=== PATIENT | male | born 1960 | race Caucasian/White ===

== ENCOUNTER → 2019-01-30 | Outpatient (CLI) | payer MEDICARE ==
[2019-01-30 15:25] LABS: Blood Urea Nitrogen 9 mg/dL (9-20)
--- NOTE | 2019-01-31 18:41 | CT ---
EXAMINATION TYPE: CT chest w con DATE OF EXAM: 01/30/2019 COMPARISON: 05/03/2013 HISTORY: 58-year-old male with COPD, weight loss TECHNIQUE: Contiguous axial scanning of the chest after the administration of 100 mL of Isovue 300. Coronal/sagittal reconstructions performed. CT DLP: 296mGycm. Automatic exposure control utilized for a dose reduction. FINDINGS: Heart normal size without pericardial effusion. Coronary vessel calcifications are present. Aorta normal caliber with conventional arch vessel branching anatomy and mild atherosclerotic calcifi cations. No thoracic lymphadenopathy. Stable calcified granuloma inferior lingula. Some minimal strandy, adherent mucus or debris along the proximal left mainstem bronchus. No consolid ation or pleural effusion. Mild biapical pleural-parenchymal scarring. Mild emphysematous change. Visualized upper abdomen shows subcentimeter hypodensity in the mid liver, smaller from 2012, probabl y a benign cyst. Otherwise, no gross abnormality. Bones: No osseous destructive process. IMPRESSION: CAD. COPD with mild emphysema. Small amount of adherent mucous/debris along the proximal left mainste m bronchus. No acute pulmonary process.
== END | disposition home or self-care (01) ==
LOC: RADCTMAIN 14:51
PROVIDERS: ATTEND Family Medicine
DX: J43.9 Emphysema, unspecified (principal); I25.10 Atherosclerotic heart disease of native coronary artery without angina pectoris
CPT/HCPCS: 82565; 84520; 71260; 36415; Q9967

== ENCOUNTER → 2020-05-29 | Outpatient (CLI) | payer MEDICARE ==
[~2020-05-29] MED LIST: REGADENOSON 0.4 MG/5 ML SYRINGE IV ONE
--- NOTE | 2020-05-29 13:32 | NM ---
EXAMINATION TYPE: NM stress lexiscan cardiolite DATE OF EXAM: 05/29/2020 COMPARISON: NONE HISTORY: Abnormal EKG. TECHNIQUE: After the intravenous administration of 9.4 mCi Tc 99m Sestamibi - Cardiolite resting SPE CT images acquired 45 minutes post injection. The patient received 0.4mg Lexiscan, 24.8 mCi Tc 99m Sestamibi - Stress images obtained [address] injection FINDINGS: Review of stress and rest SPECT images demonstrates fixed defect involving the apex of the myocardium small area of stress-induced reversibility not excluded.. Gated analysis shows normal wall motion w ith an estimated left ventricular ejection fraction of 47 %. Report called to referring clinician. IMPRESSION: 1. Fixed defect involving the apex myocardium. Cannot exclude a small area of stress-induced reversib le ischemia involving the myocardial apex. 2. Ejection fraction is only 47%.
--- NOTE | 2020-05-29 14:08 | EST ---
EXERCISE STRESS DATE OF SERVICE: May 29, 2020 AGE: 59 SEX: M HT: 68" WT: 120 lbs PROTOCOL: Lexiscan Cardiolite STAGE: DURATION OF EXERCISE: HEART RATE REST: 71 BLOOD PRESSURE REST: 121/68 MAXIMUM HEART RATE ACHIEVED: 94 MAXIMUM BLOOD PRESSURE: 121/68 85% MPHR: 138 100% MPHR: 162 METS: INDICATIONS: Chest pain. STRESS DATA: Heart rate 71, pressure is 121/68 mmHg. 0.4 mg of Lexiscan given over 15 seconds per protocol. Max heart rate was 94 beats per minute. Maximum pressure was 121/68 mmHg. Clinically the patient did not have any symptoms and the EKG did not show any significant ST or T-wave abnormalities concerning for ischemia. CONCLUSION: 1. Nondiagnostic electrocardiogram stress testing in response to Lexiscan. 2. Please follow up on the Cardiolite portion on separate report from Radiology Department. MMODL / IJN: [id number] /
== END | disposition home or self-care (01) ==
LOC: RADNMMAIN 09:00
PROVIDERS: ATTEND Family Medicine
DX: R94.31 Abnormal electrocardiogram [ECG] [EKG] (principal)
CPT/HCPCS: 93017; 78452; A9500; J2785

== ENCOUNTER 2022-01-05 06:27 | Day surgery (SDC) | payer MEDICARE ==
[2021-12-31 09:12] VITALS: BMI 18.2
[~2022-01-05 06:27] MED LIST changes: +ALPRAZolam 0.25 MG TAB PO PRN; +ASPIRIN 325 MG TAB PO PRN; +HEPARIN SODIUM,PORCINE 10,000 UNIT in SODIUM CHLORIDE 0.9% 1,000 ML IRRIGATION PRN; +HEPARIN SODIUM,PORCINE 2,500 UNIT in SODIUM CHLORIDE 0.9% 250 ML IRRIGATION PRN; -REGADENOSON 0.4 MG/5 ML SYRINGE IV ONE; +SODIUM CHLORIDE 0.9% 1,000 ML in EMPTY BAG 1 BAG IV ONE; +ZOLPIDEM 5 MG TAB PO PRN
[2022-01-05 06:53] LABS: Glucose,Whole Blood 92 mg/dL (75-99)
[2022-01-05 07:00] LABS: Basophils % (A) 0 %; Eosinophils # (A) 0.3 k/uL (0-0.7); Eosinophils % (A) 3 %; HCT 44.4 % (39.0-53.0); HGB 14.8 gm/dL (13.0-17.5); Lymphocytes # (A) 3.8 k/uL (1.0-4.8); Lymphocytes % (A) 34 %; MCHC 33.3 g/dL (31.0-37.0); MCV 96.1 fL (80.0-100.0); Mean Platelet Volume 7.9; Monocytes # (A) 0.7 k/uL (0-1.0); Monocytes % (A) 7 %; Neutrophils % (A) 54 %; Platelet Count 261 k/uL (150-450); RBC 4.62 m/uL (4.30-5.90); RDW 13.3 % (11.5-15.5); WBC 11.2 k/uL (3.8-10.6)
[2022-01-05 07:12] LABS: African American GFR (CKD) >90 (>60 ml/min/1.73 sqM); Anion Gap 7 mmol/L; Blood Urea Nitrogen 13 mg/dL (9-20); Calcium 9.4 mg/dL (8.4-10.2); Carbon Dioxide 27 mmol/L (22-30); Chloride 106 mmol/L (98-107); Glucose 92 mg/dL (74-99); Non-African American GFR(CKD) >90 (>60 ml/min/1.73 sqM); Potassium 3.7 mmol/L (3.5-5.1); Sodium 140 mmol/L (137-145)
[2022-01-05] MEDS ORDERED: VERAPAMIL 2.5 MG/ML 2 ML AMP ONE (07:21)
[2022-01-05] MEDS ORDERED: HEPARIN SODIUM 1,000 UN/ML (10ML VL) ONE (08:10)
[2022-01-05] MEDS ORDERED: fentaNYL (PF) 50 MCG/ML 2 ML AMP ONE (08:10)
[2022-01-05] MEDS: MIDAZOLAM 2 MG/2 ML VIAL IV ONE ×4 (08:32→09:49)
[2022-01-05] MEDS ORDERED: LIDOCAINE 1% INJ 10MG/ML (20 ML MDV) SQ ONE (08:35)
[2022-01-05] MEDS: HEPARIN SODIUM 1,000 UN/ML (10ML VL) IV ONE ×3 (08:58→11:08)
[2022-01-05] MEDS ORDERED: IOPAMIDOL-370 125ML BTL INJ ONE (09:31)
[2022-01-05] MEDS ORDERED: IOPAMIDOL-250 100ML BTL INTRAARTER ONE (09:34)
[2022-01-05] MEDS ORDERED: niCARdipine 25 MG/10 ML VIAL ONE (10:31)
[2022-01-05] MEDS ORDERED: TICAGRELOR 90 MG TAB ONE (11:00)
[2022-01-05] MEDS ORDERED: TICAGRELOR 90 MG TAB PO ONE (11:04)
[2022-01-05] MEDS ORDERED: IOPAMIDOL-370 100ML BTL INJ ONE (11:05)
[2022-01-05] MEDS ORDERED: ALPRAZolam 0.5 MG TAB PO PRN (11:17)
[2022-01-05] MEDS ORDERED: NALOXONE 0.4 MG/ML 1 ML VIAL IVP PRN (11:18)
[2022-01-05] MEDS ORDERED: SODIUM CHLORIDE 0.9% 1,000 ML in EMPTY BAG 1 BAG IV SCH (11:30)
--- NOTE | 2022-01-05 11:31 | P.PCN ---
Date of Procedure: 01/05/22 Operative Findings: CARDIAC CATHETERIZATION AND PERCUTANEOUS CORONARY INTERVENTION PERFORMING PHYSICIAN: Adolfo Chavez MD, [facility] PROCEDURE PERFORMED: 1. Selective right and left coronary angiogram 2. Left heart catheterization 3. Successful stenting of left anterior descending artery using 2.0 x 30 Rashi LEONA and 3.0 x 23 as well as 3.5 x 12 mm Xience LEONA which with an excellent angiographic results 4. Intravascular ultrasound of the left anterior descending artery 5. Fractional flow reserve of the right coronary artery INDICATION: This is a 61-year-old gentleman with diabetes and smoking and hypertension and dyslipidemia was experiencing symptoms of chest discomfort with exertion as well as shortness of breath with exertion. He was evaluated about a year ago where he underwent myocardial perfusion imaging stress test and that revealed an anterior ischemia and to heart catheterization was advised but he was not followed since then. He did not come to the office. He was sent again for further evaluation where the symptoms has progressed. In the light of that a heart catheterization was advised COMPLICATION: None APPROACH: Right common femoral artery LEVEL OF SEDATION: Moderate with the sedation time off 153 minutes PROCEDURE DESCRIPTION: After obtaining an informed consent the patient was brought to the cardiac senior label specialist. The right common femoral artery was cannulated using micropuncture technique, the micropuncture wire passed easily then I placed a 6-Gabonese sheath of the right common femoral artery. Selective right and left coronary angiogram performed with JR4 and JL 4 catheters. I did left heart catheterization using the JR4 catheter which across aortic valve then I did pulled back across the valve. After that I did intervene on the LAD SELECTIVE CORONARY ANGIOGRAM: The right coronary artery: Is a large caliber vessel and a dominant vessel and calcified vessel. The proximal RCA has eccentric lesion appears to be in the range of 60%. FFR was performed and came in to be nonischemic and 0.82. The mid and distal RCA appears to have mild disease only. Left main: Is a large caliber vessel. Bifurcates into LCx and LAD The left circumflex: Is a medium caliber vessel. It has mild disease in the proximal portion by the bifurcation of OM which appeared to be a small caliber vessel was mild disease only. The left anterior descending artery: Is a large caliber vessel. Its calcified vessel. The proximal LAD has mild disease only. Gives rises into a large diagonal branch which has intermediate lesion in the proximal portion. The proximal to mid LAD after that is subtotally occluded by the bifurcation of the second diagonal branch and the septal both greater. The CLOTHES MARKER extend into the mid to distal portion. HEMODYNAMICS: The LVEDP was 12 mmHg without significant gradient across aortic valve PCI OF THE LAD: Anticoagulation was initiated and continued using heparin with continuous ACT monitoring. I did engage the LAD using an EBU guiding catheter. I did wire the LAD using a whisper wire with adjunctive use of micro-catheter. Attempting advancing the microcatheter over the wire the distal LAD was unsuccessful. Attempting balloon angioplasty of the LAD was done using 1 mm balloon and 1.5 mm balloon without any success. The procedure was extremely long and complex and without any success in advancing the 1 mm a 1.5 mm balloon even I tried using a vivek wire. At that point I decided to do atherectomy of the LAD. I did advance the microcatheter as long as I can distally then I pulled the whisper wire and I placed the atherectomy wire. Atherectomy of the LAD was performed using 4 runs on low speed and using the orbital atherectomy device from [employer]. After that balloon angioplasty was performed using 2 mm balloon. Subsequently I deployed in the mid to distal LAD 2.0 x 30 mm and in the mid LAD 3.0 x 33 mm and in the proximal to mid 3.5 x 12 mm stents. By the end I did intravascular ultrasound which showed that the stents appeared to be well deployed and well opposed and rounded. The procedure was completed without any complication CONCLUSION: #1 chest discomfort with exertion with abnormal myocardial perfusion imaging stress test showing an anterior ischemia #2 chronic total occlusion of the LAD in the midportion on long segment. I did successful stenting of the LAD as described above #3 intermediate lesion involving the proximal RCA. FFR was performed and came in to be an 0.8 to POSTPROCEDURE MANAGEMENT: #1 dual antiplatelet therapy #2 aggressive cholesterol control #3 follow-up with the patient
--- NOTE | 2022-01-05 11:34 | P.PCN ---
Date of Procedure: 01/05/22 Operative Findings: AN ABDOMINAL AORTOGRAM AND BILATERAL LOWER EXTREMITIES RUNOFF PERFORMING PHYSICIAN: Adolfo Chavez MD PROCEDURE PERFORMED: 1. An abdominal aortogram 2. Bilateral lower extremities runoff INDICATION: Right lower extremities intermittent claudication in the 61-year-old gentleman with a smoking and diabetes. On examination he has no pedal pulse on the right side normal popliteal pulse but good femoral pulse. COMPLICATION: None LEVEL OF SEDATION: Moderate was sedation length of 12 minutes APPROACH: Right common femoral artery PROCEDURE DESCRIPTION: After obtaining informed consent and explaining the procedure benefits, risks, and complications, the patient was brought to the cardiac slab inspector. The right groin was prepped and draped in sterile fashion. The right common femoral artery was cannulated using micropuncture technique, under ultrasound guidance. A micropuncture wire was advanced, and the micropuncture sheath was advanced over the wire, then the micropuncture sheath was exchanged over an 0.35 wire i nto a 5-Romanian sheath dilator assembly then the wire and dilator were removed and sheath was flushed. We did an abdominal aortogram and bilateral lower extremities runoff using 5- Romanian pigtail catheter using a power injection. The catheter was initially placed at the level of the renal arteries, and it was pulled into above the bifurcation of the aorta into right and left common iliac arteries. The procedure was completed and there was no complications. SELECTIVE PERIPHERAL ANGIOGRAM: The abdominal aorta: Is angiographically normal. Its calcified. The common iliac arteries: Both appear to be calcified was mild disease only. The external iliac arteries: Appears to be calcified was mild disease only. The internal iliac arteries: Both are patent The common femoral arteries: Appeared to be angiographically normal. Superficial femoral arteries: The right SFA is occluded distally. The left SFA appears to have mild disease only Popliteal arteries: Both appear to have mild disease only Below the knees: 3 vessels run off below the knee bilaterally CONCLUSION: Occluded right SFA POSTPROCEDURE MANAGEMENT: BOTTOM MAN of the right SFA
--- NOTE | 2022-01-05 11:41 | IR ---
Fluoroscopy HISTORY: Pain 50.8 minutes fluoroscopy time supplied to the referring clinician. 1019 intraoperative C-arm images document the procedure. See dictated report from cardiology.
[2022-01-05] MEDS ORDERED: SODIUM CHLORIDE 0.9% 1,000 ML IV ONE (12:45)
[2022-01-05 13:49] LABS: Glucose,Whole Blood 96 mg/dL (75-99)
[2022-01-05 17:58] LABS: Glucose,Whole Blood 259 mg/dL (75-99)
[2022-01-05 20:32] LABS: Glucose,Whole Blood 261 mg/dL (75-99)
[2022-01-05] MEDS ORDERED: ATORVASTATIN 80 MG TAB PO SCH (21:00)
[2022-01-05] MEDS: GABAPENTIN 100 MG CAP PO SCH (21:21)
[2022-01-05] MEDS: TICAGRELOR 90 MG TAB PO SCH (21:22)
[2022-01-05 22:18] LABS: Glucose,Whole Blood 293 mg/dL (75-99)
[2022-01-05] MEDS: INSULIN ASPART (NovoLOG) 100 UNIT/ML VIAL SQ SCH (22:57)
[2022-01-06 07:48] LABS: Glucose,Whole Blood 206 mg/dL (75-99)
[2022-01-06] MEDS: GABAPENTIN 100 MG CAP PO SCH (08:16)
[2022-01-06] MEDS: TICAGRELOR 90 MG TAB PO SCH (08:16)
[2022-01-06] MEDS: INSULIN ASPART (NovoLOG) 100 UNIT/ML VIAL SQ SCH (08:17)
[2022-01-06 08:40] VITALS: BP 103/63; PULSE 96; RESP 18; TEMP 98.2
[2022-01-06] MEDS ORDERED: MULTIVITAMINS, THERA 1 EACH TAB PO SCH (09:00)
[2022-01-06] MEDS ORDERED: INSULIN DETEMIR (LEVEMIR) 100 UNIT/ML SYR SQ SCH (09:00)
[2022-01-06] MEDS ORDERED: ASPIRIN 81 MG PO SCH (09:00)
[2022-01-06] MEDS ORDERED: atenoloL 25 MG TAB PO SCH (09:00)
--- NOTE | 2022-01-06 10:14 | P.DS ---
Providers Attending physician: Adolfo Chavez Consults: 01/05/22 11:34 Consult Physician Routine Consulting Provider: Servando Whalen Reason/Comments: DM medical tx Do you want consulting provider notified?: Yes Primary care physician: Servando [facility] Course: The patient is a pleasant 61-year-old gentleman who underwent yesterday heart catheterization and that revealed occluded LAD. He underwent successful stenting of the LAD with a good angiographic results and without any complication. He was seen this morning. The right groin is soft and nontender and without any bruises. He is hemodynamically stable. He is asymptomatic. He is going to be discharged on dual antiplatelet therapy along with high intensity statin and anti-ischemic medication and I'll follow-up with the patient next week in the office Plan - Discharge Summary Discharge Rx Participant: No New Discharge Prescriptions: New Atorvastatin [Lipitor] 80 mg PO HS #80 tab Ticagrelor [Brilinta] 90 mg PO BID #180 tab Metoprolol Succinate (ER) [Toprol Xl] 25 mg PO DAILY #90 tab Continue Multivitamin [Men's Multi-Vitamin] 1 tab PO DAILY ALPRAZolam [Xanax] 0.5 mg PO DAILY PRN PRN Reason: Anxiety Insulin Degludec [Tresiba Flextouch U-100 Pen] 20 units SQ QAM Aspirin [Adult Low Dose Aspirin EC] 81 mg PO DAILY Insulin Aspart (Niacinamide) [Fiasp 100 Unit/ml Flextouch Pen] 0 units SQ AC- TID PRN PRN Reason: Blood Sugar - High Gabapentin [Neurontin] 100 mg PO BID Discontinued atenoloL [Tenormin] 25 mg PO DAILY Discharge Medication List Multivitamin [Men's Multi-Vitamin] 1 tab PO DAILY 05/08/15 [History] ALPRAZolam [Xanax] 0.5 mg PO DAILY PRN 12/31/21 [History] Aspirin [Adult Low Dose Aspirin EC] 81 mg PO DAILY 12/31/21 [History] Gabapentin [Neurontin] 100 mg PO BID 12/31/21 [History] Insulin Aspart (Niacinamide) [Fiasp 100 Unit/ml Flextouch Pen] 0 units SQ AC-TID PRN 12/31/21 [History] Insulin Degludec [Tresiba Flextouch U-100 Pen] 20 units SQ QAM 12/31/21 [History] Atorvastatin [Lipitor] 80 mg PO HS #80 tab 01/06/22 [Rx] Metoprolol Succinate (ER) [Toprol Xl] 25 mg PO DAILY #90 tab 01/06/22 [Rx] Ticagrelor [Brilinta] 90 mg PO BID #180 tab 01/06/22 [Rx] Follow up Appointment(s)/Referral(s): Adolfo Chavez MD [STAFF PHYSICIAN] - 01/14/22 4:30 pm (APPOINTMENT MADE ON January @ 4:30PM AT THE [facility] ) Patient Instructions/Handouts: Peripheral Artery Disease (ED), Moderate Sedation (ED) Activity/Diet/Wound Care/Special Instructions: *NO LIFTING, PUSHING, OR PULLING ANYTHING OVER 5 POUNDS FOR 5 DAYS *NO DRIVING FOR 3 DAYS *YOU CAN SHOWER TOMORROW BUT DO NOT SUBMERSE YOUR PUNCTURE SITE IN WATER FOR A FEW DAYS TO PREVENT INFECTION - SO NO TUB BATHS, POOLS, HOT TUBS, DISHES....ETC *ANY SIGNS OF BLEEDING (HARDNESS, SWELLING, OR EXCESSIVE BRUISING) HOLD DIRECT PRESSURE ON YOUR PUNCTURE SITE AND COME TO THE NEAREST EMERGENCY ROOM TO GET YOUR PUNCTURE SITE LOOKED AT - DO NOT DRIVE YOURSELF! EITHER CALL EMS OR HAVE SOMEONE DRIVE YOU!
[2022-01-06] MEDS ORDERED: INSULIN ASPART (NovoLOG) 100 UNIT/ML VIAL SQ SCH (22:39)
== END 2022-01-06 11:52 | disposition home or self-care (01) ==
LOC: CATHCVL 06:27 → 6NMEDSUR 11:03 → CATHCVL 01-06 11:52
PROVIDERS: ATTEND Internal Medicine Interventional Cardiology
DX: I25.110 Atherosclerotic heart disease of native coronary artery with unstable angina pectoris (principal); I25.84 Coronary atherosclerosis due to calcified coronary lesion; I70.213 Atherosclerosis of native arteries of extremities with intermittent claudication, bilateral legs; I70.0 Atherosclerosis of aorta; E78.00 Pure hypercholesterolemia, unspecified; E11.51 Type 2 diabetes mellitus with diabetic peripheral angiopathy without gangrene; R94.39 Abnormal result of other cardiovascular function study; I10 Essential (primary) hypertension; Z20.822 Contact with and (suspected) exposure to COVID-19; E78.5 Hyperlipidemia, unspecified; F17.200 Nicotine dependence, unspecified, uncomplicated; I42.9 Cardiomyopathy, unspecified; Z79.82 Long term (current) use of aspirin; Z79.4 Long term (current) use of insulin; Z79.899 Other long term (current) drug therapy
CPT/HCPCS: 93571; 92978; 93458; 75625; 75716; 80048; 85025; 87635; C9600; C1769 ×5; C1887 ×4; C1894 ×2; C1725 ×3; C1753; C1724; C1874 ×3; J2250; J2001; J1644; Q9966; Q9967 ×2

== ENCOUNTER 2022-01-20 07:27 | Day surgery (SDC) | payer MEDICARE ==
[2022-01-19 11:58] VITALS: BMI 17.9
[~2022-01-20 07:27] MED LIST changes: -ALPRAZolam 0.25 MG TAB PO PRN; -ASPIRIN 325 MG TAB PO PRN; -HEPARIN SODIUM,PORCINE 10,000 UNIT in SODIUM CHLORIDE 0.9% 1,000 ML IRRIGATION PRN; -HEPARIN SODIUM,PORCINE 2,500 UNIT in SODIUM CHLORIDE 0.9% 250 ML IRRIGATION PRN; -ZOLPIDEM 5 MG TAB PO PRN
[2022-01-20 07:49] LABS: Glucose,Whole Blood 238 mg/dL (75-99)
[2022-01-20 07:51] VITALS: RESP 18; TEMP 98.2
[2022-01-20 07:54] LABS: Basophils # (A) 0.1 k/uL (0-0.2); Basophils % (A) 1 %; Eosinophils # (A) 0.4 k/uL (0-0.7); Eosinophils % (A) 5 %; HCT 39.8 % (39.0-53.0); HGB 13.1 gm/dL (13.0-17.5); Lymphocytes # (A) 3.3 k/uL (1.0-4.8); Lymphocytes % (A) 35 %; MCH 31.1 pg (25.0-35.0); MCHC 32.9 g/dL (31.0-37.0); MCV 94.5 fL (80.0-100.0); Monocytes # (A) 0.7 k/uL (0-1.0); Monocytes % (A) 7 %; Neutrophils # (A) 4.7 k/uL (1.3-7.7); Neutrophils % (A) 50 %; Platelet Count 276 k/uL (150-450); RBC 4.21 m/uL (4.30-5.90); RDW 12.7 % (11.5-15.5); WBC 9.4 k/uL (3.8-10.6)
[2022-01-20 08:03] LABS: African American GFR (CKD) >90 (>60 ml/min/1.73 sqM); Anion Gap 3 mmol/L; Blood Urea Nitrogen 11 mg/dL (9-20); Carbon Dioxide 27 mmol/L (22-30); Chloride 106 mmol/L (98-107); Glucose 233 mg/dL (74-99); Non-African American GFR(CKD) >90 (>60 ml/min/1.73 sqM); Sodium 136 mmol/L (137-145)
[2022-01-20 08:15] LABS: Potassium 4.7 mmol/L (3.5-5.1)
[2022-01-20] MEDS ORDERED: SODIUM CHLORIDE 0.9% 500 ML 500 ML with niCARdipine 6.25 MG, NITROGLYCERIN-D5W PMX 0.05... IV ONE ×4 (10:35)
[2022-01-20] MEDS ORDERED: LIDOCAINE 1% INJ 10MG/ML (20 ML MDV) ONE (10:53)
[2022-01-20] MEDS ORDERED: HEPARIN SODIUM 1,000 UN/ML (10ML VL) ONE (10:59)
[2022-01-20] MEDS ORDERED: HYDROmorphone 1 MG/ML 1 ML SYRINGE IVP ONE (11:05)
[2022-01-20] MEDS ORDERED: MIDAZOLAM 2 MG/2 ML VIAL IV ONE (11:05)
[2022-01-20] MEDS ORDERED: LIDOCAINE 1% INJ 10MG/ML (20 ML MDV) SQ ONE (11:11)
[2022-01-20] MEDS ORDERED: IOPAMIDOL-250 100ML BTL INTRAARTER ONE (11:51)
[2022-01-20] MEDS ORDERED: NALOXONE 0.4 MG/ML 1 ML VIAL IVP PRN (12:02)
--- NOTE | 2022-01-20 12:11 | P.PCN ---
Date of Procedure: 01/20/22 Operative Findings: PERCUTANEOUS PERIPHERAL INTERVENTION Performing physician Adolfo Chavez M.D. Procedure performed #1 atherectomy of the right SFA using the orbital atherectomy device and using 1.5 mm varun #2 intravascular ultrasound of the right SFA #3 successful balloon angioplasty of the right SFA using 5.0 x 80 mm drug-coated balloon with an excellent angiographic results #4 selective angiogram of the right SFA #5 selective angiogram of the right posterior tibial artery #6 ultrasound guided access of the right posterior tibial artery Indication This is a 69-year-old gentleman who was experiencing symptoms of intermittent claudication interfering with his daily activity where he cannot walk more than 200 feet before he stopped because of discomfort. He underwent an angiogram and that revealed occluded right SFA. For that reason he was brought today to undergo an intervention on the right SFA Approach Right posterior tibial artery Complications None Level of sedation Moderate with a sedation time of 55 minutes Procedure description After obtaining an informed consent the patient was brought to the cardiac cardiac cath technician. The right posterior tibial artery was cannulated using micro-puncture technique under ultrasound guidance, the micropuncture wire passed easily then I placed a slender 5/6-Japanese sheath in the right posterior tibial artery. The SideArm of the sheath subsequently was connected into cocktail contains heparin and verapamil and nitroglycerin. Selective angiogram of the right posterior tibial artery was performed with injection through the SideArm of the sheath. Subsequently I cross the chronic total occlusion of the right SFA using 014 wire. I did advanced an 018 catheter over the 14 wire and I did selective angiogram of the right SFA to prove that I was in the true lumen. Intravascular ultrasound was performed and revealed a diameter of about 5 mm of the right SFA. Subsequently I did atherectomy of the right SFA using the orbital atherectomy device and using 1.5 mm varun. I did that after exchange my 018 wire into the atherectomy wire. After that balloon angioplasty was performed using initially 5 mm chocolate balloon and subsequently 5 mm drug- coated balloon. The following angiogram showed excellent angiographic results and the procedure was completed without any complication Postprocedure management #1 dual antiplatelet therapy #2 aggressive cholesterol control #3 risk factors modification #4 follow-up with the patient
[2022-01-20] MEDS ORDERED: SODIUM CHLORIDE 0.9% 1,000 ML in EMPTY BAG 1 BAG IV SCH (12:15)
[2022-01-20] MEDS ORDERED: INSULIN ASPART (NovoLOG) 100 UNIT/ML VIAL SQ SCH (12:30)
--- NOTE | 2022-01-20 14:21 | IR ---
EXAMINATION TYPE: IR industrial maintenance technician femoral popliteal DATE OF EXAM: 01/20/2022 COMPARISON: NONE HISTORY: Fluoroscopy time. Fluoroscopy was provided to the referring clinician.
[2022-01-20 16:02] VITALS: BP 116/64; PULSE 76
== END 2022-01-20 16:44 | disposition home or self-care (01) ==
LOC: CATHCVL 07:27
PROVIDERS: ATTEND Internal Medicine Interventional Cardiology
DX: I70.211 Atherosclerosis of native arteries of extremities with intermittent claudication, right leg (principal); I25.82 Chronic total occlusion of coronary artery; E11.51 Type 2 diabetes mellitus with diabetic peripheral angiopathy without gangrene; I25.10 Atherosclerotic heart disease of native coronary artery without angina pectoris; I10 Essential (primary) hypertension; E78.5 Hyperlipidemia, unspecified; I42.9 Cardiomyopathy, unspecified; F17.200 Nicotine dependence, unspecified, uncomplicated; Z20.822 Contact with and (suspected) exposure to COVID-19; Z95.5 Presence of coronary angioplasty implant and graft; Z79.02 Long term (current) use of antithrombotics/antiplatelets; Z79.899 Other long term (current) drug therapy; Z79.4 Long term (current) use of insulin; Z79.82 Long term (current) use of aspirin
CPT/HCPCS: 37225; 37252; 80048; 85025; 87635; C1894 ×2; C1769 ×6; C1714; C1887; C1753; C2623; C1725; J2250; J2001; J1170; J1644 ×2; Q9966

== ENCOUNTER → 2023-09-15 | Day surgery (SDC) | payer MEDICARE ==
[~2023-09-15] MED LIST changes: +ALPRAZolam 0.25 MG TAB PO PRN; +ALPRAZolam 0.5 MG TAB PO PRN; +ASPIRIN 325 MG TAB PO STA; +ASPIRIN 81 MG PO SCH; +ATORVASTATIN 80 MG TAB PO SCH; +ATROPINE SULFATE 0.1 MG/ML 10ML SYRINGE IV PRN; +GABAPENTIN 100 MG CAP PO SCH; +IOPAMIDOL-370 100ML BTL INJ ONE; +IPRATROPIUM 0.5 MG/2.5 ML NEBU INHALATION SCH; +LIDOCAINE 2% (PF) 20 MG/ML 5 ML VIAL SQ ONE; +MAG HYDROX/AL HYDROX/SIMETH 30 ML CUP PO PRN; +METOPROLOL SUCCINATE (ER) 25 MG TAB.ER.24H PO SCH; +MULTIVITAMINS, THERA 1 EACH TAB PO SCH; +NITROGLYCERIN 1000MCG/10ML SYRINGE INTRACORON ONE; +NITROGLYCERIN SL TABS 0.4 MG TAB SUBLINGUAL PRN; +RX INFO: IV CONTRAST WAS GIVEN 1 EACH MISC MISCELLANE PRN; -SODIUM CHLORIDE 0.9% 1,000 ML in EMPTY BAG 1 BAG IV ONE; +SODIUM CHLORIDE 0.9% 1,000 ML in EMPTY BAG 1 BAG IV SCH; +SODIUM CHLORIDE 0.9% 500 ML 500 ML IV ONE; +SPIRONOLACTONE 25 MG TAB PO SCH; +SYMBICORT 160-4.5 MCG INHALER INHALATION SCH; +TICAGRELOR 90 MG TAB PO SCH; +VERAPAMIL 2.5 MG/ML 2 ML AMP ONE; +VERAPAMIL SYRINGE (5 MG/10 ML) INTRAARTER ONE; +ZOLPIDEM 5 MG TAB PO PRN
[2023-09-15 09:31] LABS: Glucose,Whole Blood 187 mg/dL (70-110)
[2023-09-15 09:49] VITALS: TEMP 97.9
[2023-09-15] MEDS: MIDAZOLAM 2 MG/2 ML VIAL IVP ONE ×2 (10:47→11:20)
--- NOTE | 2023-09-15 11:44 | P.PCN ---
Date of Procedure: 09/15/23 Operative Findings: CARDIAC CATHETERIZATION AND PERCUTANEOUS CORONARY INTERVENTION PERFORMING PHYSICIAN: Adolfo Chavez MD, [facility] PROCEDURE PERFORMED: 1. Selective right and left coronary angiogram 2. Successful stenting of the first diagonal branch using 2.75 x 18 mm Xience LEONA with an excellent angiographic results 3. Ultrasound-guided access of the right radial artery INDICATION: The patient is a 63-year-old gentleman with coronary artery disease and prior stenting of the LAD was diagnosed recently with cardiomyopathy COMPLICATION: None APPROACH: Right radial artery LEVEL OF SEDATION: Moderate with the sedation time of 30 minutes PROCEDURE DESCRIPTION: After obtaining an informed consent the patient was brought to the cardiac labor trainer. The right radial artery was cannulated using micropuncture technique under ultrasound guidance a micropuncture wire passed easily then I placed a 6-Khmer 11 cm sheath. After that I give the patient 2 mg of verapamil intra-arterial and 3000 use of heparin and intravenous. Selective right and left coronary angiogram performed using JR4 and JL 3.5 catheters. After that I did intervene on the diagonal branch of the LAD. The procedure was completed was no complication SELECTIVE CORONARY ANGIOGRAM: The right coronary artery: Large caliber vessel and a dominant vessel was mild disease only. Left main: Is angiographically normal. Bifurcates into an LCx and LAD The left circumflex: Medium caliber vessel nondominant vessel. The LCx appears to have mild disease of The left anterior descending artery: Large caliber vessel. The LAD is a stented in the proximal and midportion and the stent appeared to be patent. The LAD gives rises into a large diagonal branch which is as large as the LAD was a critical lesion in the midportion PCI OF THE diet: Anticoagulation was initiated using heparin with continuous ACT monitoring. Subsequently I did engage the left main using a JL 3.5 guiding catheter. I did wire the diagonal using a whisper wire and a run-through wire because the diagonal was extremely tortuous and I did not have good backup support from the guide. After that I did balloon angioplasty using 2.5 mm balloon before I deployed 2.75 x 18 mm stent where the stent was positioned under fluoroscopy guidance and deployed under 12 joni and postdilated using 3 mm noncompliant balloon. Final angiogram showed good angiographic results and the procedure was completed was no CONCLUSION: Patent stent in the left anterior descending artery Critical disease involving a large first diagonal branch. I did perform successful stenting of the diagonal POSTPROCEDURE MANAGEMENT: 1. Dual antiplatelet therapy using aspirin and Brilinta for at least 6 month 2. Aggressive cholesterol control 3. Follow-up with the patient
[2023-09-15 16:12] VITALS: BP 138/85; PULSE 91; RESP 16
== END ==
LOC: CATHCVL 08:56
PROVIDERS: ATTEND Internal Medicine Interventional Cardiology
DX: I73.9 Peripheral vascular disease, unspecified (principal); I25.10 Atherosclerotic heart disease of native coronary artery without angina pectoris; I10 Essential (primary) hypertension; E78.5 Hyperlipidemia, unspecified; E11.9 Type 2 diabetes mellitus without complications; F17.210 Nicotine dependence, cigarettes, uncomplicated; Z79.82 Long term (current) use of aspirin; Z79.899 Other long term (current) drug therapy
CPT/HCPCS: 93458; 76937; C9600; C1769 ×3; C1887 ×2; C1894; C1725 ×2; C1874; J2250; J1644; Q9967; J2001; J2305

== ENCOUNTER 2023-12-14 09:51 | Emergency (ER) | payer MEDICARE ==
[2023-12-14 10:28] VITALS: TEMP 97.4
--- NOTE | 2023-12-14 11:01 | ED ---
General Adult HPI - General Chief complaint: Fall Stated complaint: weakness Time Seen by Provider: 12/14/23 09:53 Source: patient, EMS, RN notes reviewed, old records reviewed Mode of arrival: EMS - History of Present Illness Initial comments: 63-year-old male presents status post fall with head injury. Patient states he fell last night, tripped on some tools that were in his bedroom. He fell with injury above the right eye. He states bleeding was able to be controlled at home. There was no loss conscious. Patient states he did feel somewhat unsteady prior to the fall and has not had a good appetite in the past several days. No central chest pain. No fever. No abdominal pain. - Related Data Home Medications Medication Instructions Recorded Confirmed ALPRAZolam [Xanax] 0.5 mg PO TID PRN 12/31/21 12/14/23 Aspirin [Adult Low Dose Aspirin EC] 81 mg PO DAILY 12/31/21 12/14/23 Budesonide/Formoterol Fumarate 2 puff INHALATION RT-DAILY 09/12/23 12/14/23 [Symbicort 160-4.5 Mcg Inhaler] Spironolactone 25 mg PO DAILY 09/12/23 12/14/23 Tiotropium 2.5 Mcg/Puff [Spiriva 1 puff INHALATION RT-DAILY 09/12/23 12/14/23 Respimat 2.5 Mcg] lisinopriL 2.5 mg PO DAILY 09/12/23 12/14/23 Clopidogrel [Plavix] 75 mg PO DAILY 12/14/23 12/14/23 Insulin Aspart (Niacinamide) See Protocol SQ AC-TID 12/14/23 12/14/23 [Fiasp 100 Unit/ml Vial] Insulin Degludec [Tresiba] 30 units SQ DAILY 12/14/23 12/14/23 Metoprolol Succinate [Toprol XL] 50 mg PO DAILY 12/14/23 12/14/23 Allergies Allergy/AdvReac Type Severity Reaction Status Date / Time No Known Allergies Allergy Verified 12/14/23 12:25 Review of Systems ROS Statement: Those systems with pertinent positive or pertinent negative responses have been documented in the HPI. ROS Other: All systems not noted in ROS Statement are negative. Past Medical History Past Medical History: COPD, Diabetes Mellitus, Hyperlipidemia, Hypertension, Osteoarthritis (OA), Vascular Disorder Additional Past Medical History / Comment(s): TENDONITIS RT ELBOW, "Cyst behind rt eye", right leg & foot pain- tx. " bad Teeth". PORRAS History of Any Multi-Drug Resistant Organisms: None Reported Past Surgical History: Orthopedic Surgery Additional Past Surgical History / Comment(s): testicular surgery, reconstructive surgery on left ring finger, rt shoulder rotator cuff, recent aortogram Past Anesthesia/Blood Transfusion Reactions: No Reported Reaction Past Psychological History: Anxiety Smoking Status: Former smoker - Past Family History Mother Family Medical History: Cancer General Exam General appearance: alert, in no apparent distress Head exam: Present: normocephalic. Absent: atraumatic (1 cm superficial laceration above the right eye) Eye exam: Present: normal appearance, PERRL ENT exam: Present: normal exam Neck exam: Present: normal inspection. Absent: tenderness, meningismus Respiratory exam: Present: normal lung sounds bilaterally. Absent: respiratory distress, wheezes Cardiovascular Exam: Present: regular rate, normal rhythm GI/Abdominal exam: Present: soft. Absent: distended, tenderness, guarding Rectal exam: Present: deferred Extremities exam: Present: normal inspection, normal capillary refill Neurological exam: Present: alert, oriented X3, CN II-XII intact. Absent: motor sensory deficit Psychiatric exam: Present: normal affect, normal mood Skin exam: Present: warm, dry Course Vital Signs 12/14/23 12/14/23 12/14/23 09:53 10:08 10:36 Temperature 97.4 F L Pulse Rate 81 80 85 Respiratory 16 16 16 Rate Blood Pressure 131/70 145/96 O2 Sat by Pulse 100 95 100 Oximetry Medical Decision Making - Medical Decision Making Was pt. sent in by a medical professional or institution (, PA, UPSETTER, urgent care, hospital, or alf...) When possible be specific @ -No Did you speak to anyone other than the patient for history (EMS, parent, family, police, friend...)? What history was obtained from this source @ -No Did you review nursing and triage notes (agree or disagree)? Why? @ -I reviewed and agree with nursing and triage notes Were old charts reviewed (outside hosp., previous admission, EMS record, old EKG, old radiological studies, urgent care reports/EKG's, alf records)? Report findings @ -No old charts were reviewed Differential Diagnosis (chest pain, altered mental status, abdominal pain women, abdominal pain men, vaginal bleeding, weakness, fever, dyspnea, syncope, h eadache, dizziness, GI bleed, back pain, seizure, CVA, palpatations, mental health, musculoskeletal)? @ -[Differential Weakness: Hypoglycemia, shock, sepsis, hyponatremia, anemia, infection, PR, ETOH, adverse medicine reaction, overdose, stroke, this is not meant to be an all-inclusive list. EKG interpreted by me (3pts min.). @ -Sinus rhythm rate of 82, MO interval 152, QRS duration 94, QTc [address] segment elevation. X-rays interpreted by me (1pt min.). @Chest x-ray negative for acute cardiopulmonary findings CT interpreted by me (1pt min.). @CT brain negative for intracranial hemorrhage or mass effect U/S interpreted by me (1pt. min.). @ -None done What testing was considered but not performed or refused? (CT, X-rays, U/S, labs)? Why? @ -None What meds were considered but not given or refused? Why? @ -None Did you discuss the management of the patient with other professionals ( professionals i.e. , PA, UPSETTER, lab, RT, psych nurse, social work nurse, silk spotter, teacher, aoc operations intelligence officer, correctional counselor/case manager)? Give summary @ -No Was smoking cessation discussed for >3mins.? @ -No Was critical care preformed (if so, how long)? @ -No Were there social determinants of health that impacted care today? How? (Homelessness, low income, unemployed, alcoholism, drug addiction, transportation, low edu. Level, literacy, decrease access to med. care, assisted, rehab)? @ -No Was there de-escalation of care discussed even if they declined (Discuss DNR or withdrawal of care, Hospice)? DNR status @ -No What co-morbidities impacted this encounter? (DM, HTN, Smoking, COPD, CAD, Cancer, CVA, ARF, Chemo, Hep., AIDS, mental health diagnosis, sleep apnea, morbid obesity)? @ -COPD, diabetes Was patient admitted / discharged? Hospital course, mention meds given and route, prescriptions, significant lab abnormalities, going to OR and other pertinent info. @ -63-year-old male presenting with weakness, fall. Patient did have head trauma and is on Plavix. Head CT is performed which is negative for intracranial hemorrhage or mass effect. Patient endorses some lightheadedness which is likely secondary to poor oral intake. Patient given IV fluids in the emergency department. Workup reveals a mild hyponatremia 129, otherwise normal electrolytes, chest x-ray is clear. Urinalysis Undiagnosed new problem with uncertain prognosis? @ -No Drug Therapy requiring intensive monitoring for toxicity (Heparin, Nitro, Insulin, Cardizem)? @ -No Were any procedures done? @ -No Diagnosis/symptom? @ -[Weakness, concussion Acute, or Chronic, or Acute on Chronic? @ -Acute Uncomplicated (without systemic symptoms) or Complicated (systemic symptoms)? @ -Default Side effects of treatment? @ -No Exacerbation, Progression, or Severe Exacerbation? @ -No Poses a threat to life or bodily function? How? (Chest pain, USA, PR, pneumonia, PE, COPD, DKA, ARF, appy, cholecystitis, CVA, Diverticulitis, Homicidal, Suicidal, threat to staff... and all critical care pts) @ -[Low risk at this time - Lab Data Result diagrams: 12/14/23 10:13 12/14/23 10:13 Lab Results 12/14/23 12/14/23 12/14/23 Range/Units 10:13 10:13 10:13 WBC 13.2 H (3.8-10.6) k/uL RBC 4.12 L (4.30-5.90) m/uL Hgb 13.4 (13.0-17.5) gm/dL Hct 39.5 (39.0-53.0) % MCV 95.8 (80.0-100.0) fL MCH 32.6 (25.0-35.0) pg MCHC 34.1 (31.0-37.0) g/dL RDW 13.3 (11.5-15.5) % Plt Count 274 (150-450) k/uL MPV 8.5 Neutrophils % 76 % Lymphocytes % 15 % Monocytes % 5 % Eosinophils % 1 % Basophils % 1 % Neutrophils # 10.1 H (1.3-7.7) k/uL Lymphocytes # 2.0 (1.0-4.8) k/uL Monocytes # 0.7 (0-1.0) k/uL Eosinophils # 0.1 (0-0.7) k/uL Basophils # 0.1 (0-0.2) k/uL Sodium 129 L (137-145) mmol/L Potassium 4.4 (3.5-5.1) mmol/L Chloride 101 (98-107) mmol/L Carbon Dioxide 20 L (22-30) mmol/L Anion Gap 8 mmol/L BUN 48 H (9-20) mg/dL Creatinine 0.55 L (0.66-1.25) mg/dL Est GFR (CKD-EPI)AfAm >90 (>60 ml/min/1.73 sqM) Est GFR (CKD-EPI)NonAf >90 (>60 ml/min/1.73 sqM) Glucose 247 H (74-99) mg/dL Plasma Lactic Acid Dexter 0.9 (0.7-2.0) mmol/L Calcium 9.0 (8.4-10.2) mg/dL Magnesium 2.2 (1.6-2.3) mg/dL Total Bilirubin 0.6 (0.2-1.3) mg/dL AST 33 (17-59) U/L ALT 40 (4-49) U/L Alkaline Phosphatase 141 H (38-126) U/L Troponin I (0.000-0.034) ng/mL Total Protein 5.8 L (6.3-8.2) g/dL Albumin 3.3 L (3.5-5.0) g/dL 12/14/23 Range/Units 10:13 WBC (3.8-10.6) k/uL RBC (4.30-5.90) m/uL Hgb (13.0-17.5) gm/dL Hct (39.0-53.0) % MCV (80.0-100.0) fL MCH (25.0-35.0) pg MCHC (31.0-37.0) g/dL RDW (11.5-15.5) % Plt Count (150-450) k/uL MPV Neutrophils % % Lymphocytes % % Monocytes % % Eosinophils % % Basophils % % Neutrophils # (1.3-7.7) k/uL Lymphocytes # (1.0-4.8) k/uL Monocytes # (0-1.0) k/uL Eosinophils # (0-0.7) k/uL Basophils # (0-0.2) k/uL Sodium (137-145) mmol/L Potassium (3.5-5.1) mmol/L Chloride (98-107) mmol/L Carbon Dioxide (22-30) mmol/L Anion Gap mmol/L BUN (9-20) mg/dL Creatinine (0.66-1.25) mg/dL Est GFR (CKD-EPI)AfAm (>60 ml/min/1.73 sqM) Est GFR (CKD-EPI)NonAf (>60 ml/min/1.73 sqM) Glucose (74-99) mg/dL Plasma Lactic Acid Dexter (0.7-2.0) mmol/L Calcium (8.4-10.2) mg/dL Magnesium (1.6-2.3) mg/dL Total Bilirubin (0.2-1.3) mg/dL AST (17-59) U/L ALT (4-49) U/L Alkaline Phosphatase (38-126) U/L Troponin I <0.012 (0.000-0.034) ng/mL Total Protein (6.3-8.2) g/dL Albumin (3.5-5.0) g/dL Disposition Clinical Impression: Fall, Concussion Disposition: HOME SELF-CARE Condition: Fair Instructions (If sedation given, give patient instructions): Fall Prevention for Older Adults (ED), Concussion (ED) Is patient prescribed a controlled substance at d/c from ED?: No Referrals: Servando Whalen MD [Primary Care Provider] - 1-2 days Time of Disposition: 14:12
[2023-12-14 11:07] LABS: ALT 40 U/L (4-49); AST 33 U/L (17-59); African American GFR (CKD) >90 (>60 ml/min/1.73 sqM); Albumin 3.3 g/dL (3.5-5.0); Alkaline Phosphatase 141 U/L (38-126); Anion Gap 8 mmol/L; Blood Urea Nitrogen 48 mg/dL (9-20); Carbon Dioxide 20 mmol/L (22-30); Chloride 101 mmol/L (98-107); Glucose 247 mg/dL (74-99); Magnesium 2.2 mg/dL (1.6-2.3); Non-African American GFR(CKD) >90 (>60 ml/min/1.73 sqM); Potassium 4.4 mmol/L (3.5-5.1); Sodium 129 mmol/L (137-145); Total Bilirubin 0.6 mg/dL (0.2-1.3); Total Protein 5.8 g/dL (6.3-8.2)
--- NOTE | 2023-12-14 11:11 | CT ---
EXAMINATION TYPE: CT brain cspine wo con DATE OF EXAM: 12/14/2023 COMPARISON: None available. HISTORY: Fall. CT DLP: 1302 mGycm Automated exposure control for dose reduction was used. TECHNIQUE: CT scan of the head and cervical spine are performed without contrast. FINDINGS: There is no acute intracranial hemorrhage, mass effect, or midline shift identified. The ventricles and sulci are within normal limits in size. The globes are intact and the visualized sin uses are clear. Cervical spine is visualized in its entirety from C1 through upper thoracic levels and demonstrates s atisfactory alignment without evidence of acute fracture or dislocation. Prevertebral soft tissue ap pears within normal limits. The C1-C2 articulation is unremarkable. 5 mm nodule in the left upper l obe is unchanged from the prior chest CT of 11/18/2022. The lung apices otherwise appear clear. IMPRESSION: 1. There is no acute fracture or dislocation evident in the cervical spine. 2. No acute intracranial hemorrhage, mass effect, or midline shift is seen.
--- NOTE | 2023-12-14 11:12 | XR ---
EXAMINATION TYPE: XR chest 2V DATE OF EXAM: 12/14/2023 COMPARISON: 06/21/2014 HISTORY: Shortness of breath TECHNIQUE: Frontal and lateral views of the chest are obtained. FINDINGS: Scattered senescent parenchymal changes noted. Hyperinflation compatible with COPD. No evidence for infiltrate. No evidence for atelectasis. Heart size is stable. Mediastinal structures are stable and grossly unremarkable. No evidence for hilar prominence. Degenerative changes dorsal spine. IMPRESSION: 1. No evidence for acute pulmonary disease.
[2023-12-14 11:55] LABS: Basophils # (A) 0.1 k/uL (0-0.2); Basophils % (A) 1 %; Eosinophils # (A) 0.1 k/uL (0-0.7); Eosinophils % (A) 1 %; HCT 39.5 % (39.0-53.0); HGB 13.4 gm/dL (13.0-17.5); Lymphocytes % (A) 15 %; MCH 32.6 pg (25.0-35.0); MCHC 34.1 g/dL (31.0-37.0); MCV 95.8 fL (80.0-100.0); Mean Platelet Volume 8.5; Monocytes # (A) 0.7 k/uL (0-1.0); Monocytes % (A) 5 %; Neutrophils # (A) 10.1 k/uL (1.3-7.7); Neutrophils % (A) 76 %; Platelet Count 274 k/uL (150-450); RBC 4.12 m/uL (4.30-5.90); RDW 13.3 % (11.5-15.5); WBC 13.2 k/uL (3.8-10.6)
[2023-12-14 13:33] LABS: Appearance,Urine Clear (Clear); Bilirubin,Urine Negative (Negative); Blood,Urine Negative (Negative); Color,Urine Colorless; Glucose,Urine (UA) 4+ (Negative); Leukocyte Esterase,Urine Negative (Negative); Nitrite,Urine Negative (Negative); PH, Urine 5.5 (5.0-8.0); Protein,Urine Negative (Negative); Specific Gravity,Urine 1.022 (1.001-1.035); Urobilinogen,Urine <2.0 mg/dL (<2.0)
[2023-12-14 14:17] LABS: Ketones,Urine 2+ (Negative)
[2023-12-14 14:31] VITALS: RESP 18
[2023-12-14] MEDS: SODIUM CHLORIDE 0.9% 500 ML 500 ML IV ONE (14:37)
[2023-12-14 15:39] VITALS: BP 119/76; PULSE 88
== END 2023-12-14 16:00 | disposition home or self-care (01) ==
LOC: EC 09:51
DX: S06.0X0A Concussion without loss of consciousness, initial encounter (principal); I10 Essential (primary) hypertension; E11.9 Type 2 diabetes mellitus without complications; J44.9 Chronic obstructive pulmonary disease, unspecified; M19.90 Unspecified osteoarthritis, unspecified site; F41.9 Anxiety disorder, unspecified; Z79.02 Long term (current) use of antithrombotics/antiplatelets; Z79.4 Long term (current) use of insulin; Z79.51 Long term (current) use of inhaled steroids; Z79.82 Long term (current) use of aspirin; Z79.899 Other long term (current) drug therapy; Z87.891 Personal history of nicotine dependence; W01.0XXA Fall on same level from slipping, tripping and stumbling without subsequent striking against object, initial encounter
CPT/HCPCS: 36415; 70450; 71046; 72125; 80053; 81003; 83605; 83735; 84484; 85025; 93005; 96360; 99285

== ENCOUNTER 2024-01-13 22:11 | Inpatient (IN) | payer MEDICARE ==
--- NOTE | 2024-01-13 22:36 | ED ---
Nausea/Vomiting/Diarrhea HPI - General Chief complaint: Nausea/Vomiting/Diarrhea Stated complaint: Hyperglycemia, Constipation Time Seen by Provider: 01/13/24 22:14 Source: EMS Mode of arrival: EMS Limitations: no limitations - History of Present Illness Initial comments: This patient is a 63-year-old man with history of diabetes, using home insulin, who presents with complaint that he has not been feeling well going on 2 to 3 days now. He states that he has been having some intermittent nausea and vomiting. His blood sugars have been running abnormally high for him. He states that he now also is having some diffuse cramping abdominal pain and feels constipated. His last bowel movement was 3 days ago. Patient does note that he has had probably 4-6 episodes of vomiting today. He states he is not really tolerating much oral intake. He states he is starting to feel dehydrated. He did not note any preceding fevers, cough, chest pain, dyspnea. MD complaint: nausea, vomiting -: days(s) Description of Vomiting: food contents Associated Abdominal Pain: Yes (cramping) Location: diffuse Radiation: none Severity: moderate Quality: cramping Consistency: intermittent Improves with: none Worsens with: none Associated Symptoms: nausea/vomiting, other (constipation) - Related Data Home Medications Medication Instructions Recorded Confirmed ALPRAZolam [Xanax] 0.5 mg PO TID PRN 12/31/21 01/14/24 Aspirin [Adult Low Dose Aspirin EC] 81 mg PO DAILY 12/31/21 01/14/24 Spironolactone 25 mg PO DAILY 09/12/23 01/14/24 lisinopriL 2.5 mg PO DAILY 09/12/23 01/14/24 Clopidogrel [Plavix] 75 mg PO DAILY 12/14/23 01/14/24 Insulin Aspart (Niacinamide) See Protocol SQ AC-TID 12/14/23 01/14/24 [Fiasp 100 Unit/ml Vial] Metoprolol Succinate [Toprol XL] 50 mg PO DAILY 12/14/23 01/14/24 Fluticasone/Umeclidin/Vilanter 1 puff INHALATION RT-DAILY 01/14/24 01/14/24 [Trelegy Ellipta 200-62.5-25] Previous Rx's Medication Instructions Recorded Insulin Degludec [Tresiba] 20 units SQ DAILY #1 each 01/15/24 Psyllium Husk 100% [Metamucil 6 gm PO DAILY #30 packet 01/15/24 Packet] Allergies Allergy/AdvReac Type Severity Reaction Status Date / Time No Known Allergies Allergy Verified 01/14/24 11:03 Review of Systems ROS Statement: Those systems with pertinent positive or pertinent negative responses have been documented in the HPI. ROS Other: All systems not noted in ROS Statement are negative. Constitutional: Denies: fever, chills Respiratory: Denies: cough, dyspnea Cardiovascular: Denies: chest pain, palpitations, edema, syncope Gastrointestinal: Reports: abdominal pain, nausea, vomiting, constipation. Denies: diarrhea, hematemesis, melena, hematochezia Genitourinary: Denies: dysuria, hematuria, testicular pain Musculoskeletal: Denies: back pain Skin: Denies: rash Neurological: Denies: headache, weakness Past Medical History Past Medical History: COPD, Diabetes Mellitus, Hyperlipidemia, Hypertension, Osteoarthritis (OA), Vascular Disorder Additional Past Medical History / Comment(s): TENDONITIS RT ELBOW, "Cyst behind rt eye", right leg & foot pain- tx. " bad Teeth". PORRAS History of Any Multi-Drug Resistant Organisms: None Reported Past Surgical History: Orthopedic Surgery Additional Past Surgical History / Comment(s): testicular surgery, reconstructive surgery on left ring finger, rt shoulder rotator cuff, recent aortogram Past Anesthesia/Blood Transfusion Reactions: No Reported Reaction Past Psychological History: Anxiety Smoking Status: Former smoker Past Alcohol Use History: Occasional Past Drug Use History: Marijuana - Past Family History Mother Family Medical History: Cancer General Exam Limitations: no limitations General appearance: alert, in no apparent distress Head exam: Present: atraumatic, normocephalic Eye exam: Present: normal appearance. Absent: scleral icterus, conjunctival injection ENT exam: Present: mucous membranes dry Neck exam: Present: normal inspection Respiratory exam: Present: normal lung sounds bilaterally. Absent: respiratory distress, wheezes, rales, rhonchi, stridor, accessory muscle use Cardiovascular Exam: Present: normal rhythm, tachycardia, normal heart sounds. Absent: systolic murmur, diastolic murmur, rubs, gallop GI/Abdominal exam: Present: soft. Absent: distended, tenderness, guarding, rebound, rigid, mass Extremities exam: Present: normal inspection, normal capillary refill. Absent: pedal edema, calf tenderness Back exam: Present: normal inspection. Absent: CVA tenderness (R), CVA tenderness (L) Neurological exam: Present: alert Skin exam: Present: warm, dry, intact, normal color. Absent: rash Course Vital Signs 01/13/24 01/13/24 01/14/24 22:12 23:20 00:00 Temperature 97.0 F L Pulse Rate 124 H 107 H 104 H Pulse Rate [ Right Supine Pulse Oximetery ] Respiratory 18 16 Rate Blood Pressure 123/69 149/85 109/55 Blood Pressure [Right Arm Supine] O2 Sat by Pulse 100 97 100 Oximetry 01/14/24 01/14/24 01:00 04:00 Temperature 98.2 F Pulse Rate 106 H Pulse Rate [ 96 Right Supine Pulse Oximetery ] Respiratory 16 16 Rate Blood Pressure 104/63 Blood Pressure 107/61 [Right Arm Supine] O2 Sat by Pulse 99 98 Oximetry Medical Decision Making - Medical Decision Making The patient had acute abdominal series which I interpreted as negative for acute infiltrate, pneumothorax, congestive heart failure. There is no bowel obstruction or free air. Was pt. sent in by a medical professional or institution (, PA, HOTEL OR MOTEL MANAGER, urgent care, hospital, or fci...) When possible be specific @ -[No] Did you speak to anyone other than the patient for history (EMS, parent, family, police, friend...)? What history was obtained from this source @ -[No] Did you review nursing and triage notes (agree or disagree)? Why? @ -[I reviewed and agree with nursing and triage notes] Were old charts reviewed (outside hosp., previous admission, EMS record, old EKG, old radiological studies, urgent care reports/EKG's, fci records)? Report findings @ -[Yes, old charts were reviewed] Differential Diagnosis (chest pain, altered mental status, abdominal pain women, abdominal pain men, vaginal bleeding, weakness, fever, dyspnea, syncope, headache, dizziness, GI bleed, back pain, seizure, CVA, palpatations, mental health, musculoskeletal)? @ -[Differential Abdominal Pain Men: Appendicitis, cholecystitis, diverticulosis, ischemic bowel, pancreatitis, hepatitis, UTI, gastroenteritis, AAA, incarcerated hernia, bowel obstruction, constipation, inflammatory bowel, hepatitis, peptic ulcer disease, splenic infarction, perforated viscus, testicular torsion, this is not meant to be an all-inclusive list EKG interpreted by me (3pts min.). @ -[As above] X-rays interpreted by me (1pt min.). @ -[I interpreted as above CT interpreted by me (1pt min.). @ -[None done] U/S interpreted by me (1pt. min.). @ -[None done] What testing was considered but not performed or refused? (CT, X-rays, U/S, l abs)? Why? @ -[None] What meds were considered but not given or refused? Why? @ -[None] Did you discuss the management of the patient with other professionals (professionals i.e. , PA, HOTEL OR MOTEL MANAGER, lab, RT, psych nurse, social sciences research scientist, tugboat mate, teacher, security officer, outpatient case manager)? Give summary @ -[Case is discussed with the admitting physician and treatment recommendations incorporated Was smoking cessation discussed for >3mins.? @ -[No] Was critical care preformed (if so, how long)? @ -[Yes, 35 minutes Were there social determinants of health that impacted care today? How? (Homelessness, low income, unemployed, alcoholism, drug addiction, transportation, low edu. Level, literacy, decrease access to med. care, alf, rehab)? @ -[No] Was there de-escalation of care discussed even if they declined (Discuss DNR or withdrawal of care, Hospice)? DNR status @ -[No] What co-morbidities impacted this encounter? (DM, HTN, Smoking, COPD, CAD, Cancer, CVA, ARF, Chemo, Hep., AIDS, mental health diagnosis, sleep apnea, morbid obesity)? @ -[Diabetes and hypertension Was patient admitted / discharged? Hospital course, mention meds given and route, prescriptions, significant lab abnormalities, going to OR and other pertinent info. @ -[This patient is a 63-year-old man presenting to have evaluation of nausea, vomiting, and some abdominal pain. The patient is found to be in diabetic ketoacidosis. He is started on IV fluids and insulin and will be admitted for continued care. Undiagnosed new problem with uncertain prognosis? @ -[No] Drug Therapy requiring intensive monitoring for toxicity (Heparin, Nitro, Insulin, Cardizem)? @ -[Insulin Were any procedures done? @ -[No] Diagnosis/symptom? @ -[Acute diabetic ketoacidosis Acute, or Chronic, or Acute on Chronic? @ -[Acute Uncomplicated (without systemic symptoms) or Complicated (systemic symptoms)? @ -[Uncomplicated Side effects of treatment? @ -[No] Exacerbation, Progression, or Severe Exacerbation? @ -[No] Poses a threat to life or bodily function? How? (Chest pain, USA, CO, pneumonia, PE, COPD, DKA, ARF, appy, cholecystitis, CVA, Diverticulitis, Homicidal, Suicidal, threat to staff... and all critical care pts) @ -[Yes - Lab Data Result diagrams: 01/13/24 22:40 01/15/24 06:22 Lab Results 01/13/24 01/13/24 01/13/24 Range/Units 22:27 22:40 22:40 WBC 9.4 (3.8-10.6) k/uL RBC 4.21 L (4.30-5.90) m/uL Hgb 13.6 (13.0-17.5) gm/dL Hct 43.7 (39.0-53.0) % MCV 103.9 H D (80.0-100.0) fL MCH 32.4 (25.0-35.0) pg MCHC 31.2 (31.0-37.0) g/dL RDW 13.7 (11.5-15.5) % Plt Count 289 (150-450) k/uL MPV 8.4 Neutrophils % 82 % Lymphocytes % 12 % Monocytes % 4 % Eosinophils % 0 % Basophils % 1 % Neutrophils # 7.7 (1.3-7.7) k/uL Lymphocytes # 1.2 (1.0-4.8) k/uL Monocytes # 0.3 (0-1.0) k/uL Eosinophils # 0.0 (0-0.7) k/uL Basophils # 0.1 (0-0.2) k/uL Hypochromasia Slight Macrocytosis Slight Sodium 134 L (137-145) mmol/L Potassium 4.5 (3.5-5.1) mmol/L Chloride 101 (98-107) mmol/L Carbon Dioxide 5 L* (22-30) mmol/L Anion Gap 28 mmol/L BUN 21 H (9-20) mg/dL Creatinine 0.74 (0.66-1.25) mg/dL Est GFR (CKD-EPI)AfAm >90 (>60 ml/min/1.73 sqM) Est GFR (CKD-EPI)NonAf >90 (>60 ml/min/1.73 sqM) Glucose 440 H (74-99) mg/dL POC Glucose (mg/dL) 418 H (70-110) mg/dL POC Glu Felt Machine Mechanic ID Erin Ayala Calcium 9.2 (8.4-10.2) mg/dL Total Bilirubin 0.5 (0.2-1.3) mg/dL AST 50 (17-59) U/L ALT 345 H (4-49) U/L Alkaline Phosphatase 414 H (38-126) U/L Total Protein 6.1 L (6.3-8.2) g/dL Albumin 3.7 (3.5-5.0) g/dL Amylase 47 (30-110) U/L Lipase 35 (23-300) U/L Urine Color Urine Appearance (Clear) Urine pH (5.0-8.0) Ur Specific [place] (1.001-1.035) Urine Protein (Negative) Urine Glucose (UA) (Negative) Urine Ketones (Negative) Urine Blood (Negative) Urine Nitrite (Negative) Urine Bilirubin (Negative) Urine Urobilinogen (<2.0) mg/dL Ur Leukocyte Esterase (Negative) Acetone, Qual Positive (Negative) 01/14/24 01/14/24 Range/Units 00:22 00:40 WBC (3.8-10.6) k/uL RBC (4.30-5.90) m/uL Hgb (13.0-17.5) gm/dL Hct (39.0-53.0) % MCV (80.0-100.0) fL MCH (25.0-35.0) pg MCHC (31.0-37.0) g/dL RDW (11.5-15.5) % Plt Count (150-450) k/uL MPV Neutrophils % % Lymphocytes % % Monocytes % % Eosinophils % % Basophils % % Neutrophils # (1.3-7.7) k/uL Lymphocytes # (1.0-4.8) k/uL Monocytes # (0-1.0) k/uL Eosinophils # (0-0.7) k/uL Basophils # (0-0.2) k/uL Hypochromasia Macrocytosis Sodium (137-145) mmol/L Potassium (3.5-5.1) mmol/L Chloride (98-107) mmol/L Carbon Dioxide (22-30) mmol/L Anion Gap mmol/L BUN (9-20) mg/dL Creatinine (0.66-1.25) mg/dL Est GFR (CKD-EPI)AfAm (>60 ml/min/1.73 sqM) Est GFR (CKD-EPI)NonAf (>60 ml/min/1.73 sqM) Glucose (74-99) mg/dL POC Glucose (mg/dL) 215 H (70-110) mg/dL POC Glu Felt Machine Mechanic ID Ivory Urrutia Calcium (8.4-10.2) mg/dL Total Bilirubin (0.2-1.3) mg/dL AST (17-59) U/L ALT (4-49) U/L Alkaline Phosphatase (38-126) U/L Total Protein (6.3-8.2) g/dL Albumin (3.5-5.0) g/dL Amylase (30-110) U/L Lipase (23-300) U/L Urine Color Colorless Urine Appearance Clear (Clear) Urine pH 5.0 (5.0-8.0) Ur Specific [place] 1.021 (1.001-1.035) Urine Protein Negative (Negative) Urine Glucose (UA) 4+ H (Negative) Urine Ketones 4+ H (Negative) Urine Blood Negative (Negative) Urine Nitrite Negative (Negative) Urine Bilirubin Negative (Negative) Urine Urobilinogen <2.0 (<2.0) mg/dL Ur Leukocyte Esterase Negative (Negative) Acetone, Qual (Negative) Disposition Clinical Impression: Diabetic ketoacidosis, Nausea & vomiting Disposition: ADMITTED IP TO THIS HOSP Is patient prescribed a controlled substance at d/c from ED?: No
[2024-01-13 22:38] LABS: Glucose,Whole Blood 418 mg/dL (70-110)
--- NOTE | 2024-01-13 22:50 | XR ---
EXAMINATION TYPE: XR abdomen acute w cxr DATE OF EXAM: 01/13/2024 CLINICAL HISTORY: Cough with nausea and vomiting and constipation for 3 days TECHNIQUE: Single frontal view of chest is obtained. Supine and upright views of the abdomen are acq uired. COMPARISON: Prior chest x-ray with acute abdominal series May 08, 2015. FINDINGS: The lungs are grossly clear without pleural effusion or pneumothorax. Cardiac silhouette size appears stable and within normal limits. Osseous structures are intact. Some paucity of bowel gas. Gas is seen in nondistended stomach and left-sided colonic loop. Vascular calcification projects over the pelvis. No free air. Osseous structures are intact. IMPRESSION: 1. No acute cardiopulmonary process. 2. Overall nonspecific bowel gas pattern.
[2024-01-13 23:13] LABS: Basophils # (A) 0.1 k/uL (0-0.2); Basophils % (A) 1 %; Eosinophils % (A) 0 %; HCT 43.7 % (39.0-53.0); HGB 13.6 gm/dL (13.0-17.5); Hypochromasia Slight; Lymphocytes # (A) 1.2 k/uL (1.0-4.8); Lymphocytes % (A) 12 %; MCH 32.4 pg (25.0-35.0); MCHC 31.2 g/dL (31.0-37.0); Macrocytosis Slight; Mean Platelet Volume 8.4; Monocytes # (A) 0.3 k/uL (0-1.0); Monocytes % (A) 4 %; Neutrophils # (A) 7.7 k/uL (1.3-7.7); Neutrophils % (A) 82 %; Platelet Count 289 k/uL (150-450); RBC 4.21 m/uL (4.30-5.90); RDW 13.7 % (11.5-15.5); WBC 9.4 k/uL (3.8-10.6)
[2024-01-13] MEDS: METOCLOPRAMIDE 5 MG/ML 2 ML VIAL IVP STA (23:13)
[2024-01-13] MEDS: INSULIN REGULAR 100 UNIT/ML VIAL (IV) SQ STA (23:13)
[2024-01-13 23:18] LABS: ALT 345 U/L (4-49); AST 50 U/L (17-59); African American GFR (CKD) >90 (>60 ml/min/1.73 sqM); Albumin 3.7 g/dL (3.5-5.0); Alkaline Phosphatase 414 U/L (38-126); Amylase 47 U/L (30-110); Anion Gap 28 mmol/L; Blood Urea Nitrogen 21 mg/dL (9-20); Calcium 9.2 mg/dL (8.4-10.2); Chloride 101 mmol/L (98-107); Glucose 440 mg/dL (74-99); Lipase 35 U/L (23-300); Non-African American GFR(CKD) >90 (>60 ml/min/1.73 sqM); Potassium 4.5 mmol/L (3.5-5.1); Sodium 134 mmol/L (137-145); Total Bilirubin 0.5 mg/dL (0.2-1.3); Total Protein 6.1 g/dL (6.3-8.2)
[2024-01-13] MEDS: SODIUM CHLORIDE 0.9% 1,000 ML IV STA (23:20)
[2024-01-13 23:22] LABS: Carbon Dioxide 5 mmol/L (22-30)
[2024-01-13 23:23] LABS: MCV 103.9 fL (80.0-100.0)
[2024-01-14 00:23] LABS: Glucose,Whole Blood 215 mg/dL (70-110)
[2024-01-14] MEDS: INSULIN REGULAR 100 UNIT in SODIUM CHLORIDE 0.9% 100 ML IV SCH (00:33)
[2024-01-14] MEDS: SODIUM CHLORIDE 0.9% 1,000 ML IV SCH ×2 (00:42→01:39)
[2024-01-14 01:09] LABS: Appearance,Urine Clear (Clear); Bilirubin,Urine Negative (Negative); Blood,Urine Negative (Negative); Color,Urine Colorless; Glucose,Urine (UA) 4+ (Negative); Leukocyte Esterase,Urine Negative (Negative); Nitrite,Urine Negative (Negative); Protein,Urine Negative (Negative); Specific Gravity,Urine 1.021 (1.001-1.035); Urobilinogen,Urine <2.0 mg/dL (<2.0)
[2024-01-14 01:21] VITALS: RESP 16
[2024-01-14 01:38] LABS: Glucose,Whole Blood 137 mg/dL (70-110)
[2024-01-14 01:39] LABS: Ketones,Urine 4+ (Negative)
[2024-01-14 02:33] LABS: Glucose,Whole Blood 98 mg/dL (70-110)
[2024-01-14 03:20] LABS: Glucose,Whole Blood 82 mg/dL (70-110)
[2024-01-14 04:08] LABS: Glucose,Whole Blood 131 mg/dL (70-110)
[2024-01-14] MEDS ORDERED: INSULIN REGULAR BOLUS (FROM DRIP BAG) IV ONE (04:57)
[2024-01-14] MEDS ORDERED: Magnesium Replacement Protocol 1 EACH MISC MISCELLANE PRN (04:57)
[2024-01-14] MEDS ORDERED: Potassium Replacement Protocol 1 EACH MISC MISCELLANE PRN (04:57)
[2024-01-14] MEDS ORDERED: DEXTROSE 50% SYRINGE 50 ML IVP PRN ×4 (04:57→15:15)
[2024-01-14] MEDS ORDERED: SODIUM CHLORIDE 0.9% 1,000 ML IV SCH (05:00)
[2024-01-14] MEDS ORDERED: INSULIN REGULAR 100 UNIT in SODIUM CHLORIDE 0.9% 100 ML IV SCH (05:00)
[2024-01-14 06:00] LABS: Glucose,Whole Blood 71 mg/dL (70-110)
[2024-01-14 06:02] LABS: African American GFR (CKD) >90 (>60 ml/min/1.73 sqM); Anion Gap 12 mmol/L; Blood Urea Nitrogen 17 mg/dL (9-20); Carbon Dioxide 20 mmol/L (22-30); Chloride 103 mmol/L (98-107); Glucose 82 mg/dL (74-99); Non-African American GFR(CKD) >90 (>60 ml/min/1.73 sqM); Potassium 4.1 mmol/L (3.5-5.1); Sodium 135 mmol/L (137-145)
[2024-01-14 06:18] LABS: VBG PH 7.4 (7.31-7.41)
[2024-01-14 06:50] LABS: Glucose,Whole Blood 55 mg/dL (70-110)
[2024-01-14 07:11] LABS: Glucose,Whole Blood 63 mg/dL (70-110)
[2024-01-14 07:17] LABS: Glucose,Whole Blood 103 mg/dL (70-110)
[2024-01-14] MEDS: D5-0.45% NACL WITH KCL 20MEQ/L 1,000 ML IV SCH (08:00)
[2024-01-14 09:14] LABS: Glucose,Whole Blood 348 mg/dL (70-110)
[2024-01-14 10:13] LABS: Glucose,Whole Blood 384 mg/dL (70-110)
[2024-01-14 11:03] LABS: African American GFR (CKD) >90 (>60 ml/min/1.73 sqM); Anion Gap 14 mmol/L; Blood Urea Nitrogen 14 mg/dL (9-20); Carbon Dioxide 14 mmol/L (22-30); Chloride 102 mmol/L (98-107); Glucose 342 mg/dL (74-99); Non-African American GFR(CKD) >90 (>60 ml/min/1.73 sqM); Phosphorus 2.9 mg/dL (2.5-4.5); Potassium 4.1 mmol/L (3.5-5.1); Sodium 130 mmol/L (137-145)
[2024-01-14 11:07] LABS: Glucose,Whole Blood 292 mg/dL (70-110)
[2024-01-14 11:19] LABS: Glucose,Whole Blood 278 mg/dL (70-110)
[2024-01-14] MEDS ORDERED: ALPRAZolam 0.5 MG TAB PO PRN (11:33)
[2024-01-14 12:00] LABS: Glucose,Whole Blood 219 mg/dL (70-110)
[2024-01-14] MEDS: SYMBICORT 80-4.5 MCG INHALER INHALATION SCH (12:03)
[2024-01-14] MEDS: IPRATROPIUM 0.5 MG/2.5 ML NEBU INHALATION SCH (12:03)
[2024-01-14] MEDS: ASPIRIN 81 MG PO SCH (12:10)
[2024-01-14] MEDS: METOPROLOL SUCCINATE (ER) 50 MG TAB.ER.24H PO SCH (12:10)
[2024-01-14] MEDS: CLOPIDOGREL 75 MG TAB PO SCH (12:10)
[2024-01-14 12:47] VITALS: BMI 15.2
[2024-01-14 13:01] LABS: Glucose,Whole Blood 210 mg/dL (70-110)
[2024-01-14 14:08] LABS: Glucose,Whole Blood 213 mg/dL (70-110)
--- NOTE | 2024-01-14 14:40 | P.HPIM ---
History of Present Illness H&P Date: 01/14/24 Chief Complaint: Nausea vomiting Rounding for Dr. Servando Whalen. This is a pleasant 63-year-old patient follows with Dr. Servando Whalen. Chronic stable medical condition include COPD, hypertension, hyperlipidemia, osteoarthritis, anxiety. Patient has been on insulin for 10 years. Last 2 months patient is no disease at weight loss. Gets constipated. Was having a regular bowel movement prior. Now he goes every 2 to 3 days. This occasion again got constipated. Started having nausea vomiting. No fever no chills. Came to the ER. Found to be in diabetic ketoacidosis. Put on insulin drip. Did eat about 50% of his breakfast this morning, not hungry for lunch. Review of systems: GEN.: Tired weight loss decreased appetite EYES: None HEENT: None NECK: None RESPIRATORY: None CARDIOVASCULAR: None GASTROINTESTINAL: As above GENITOURINARY: None MUSCULOSKELETAL: None LYMPHATICS: None HEMATOLOGICAL: None PSYCHIATRY: None NEUROLOGICAL: None Social history: Patient is . Smoking in 2020. Smoked for 30 years. Alcohol occasionally. Does use medical marijuana. Physical examination: VITAL SIGNS: 97, 124, 18, 123/69, 100% room air upon presentation GENERAL: BMI 15.2, laying in bed tired. EYES: Pupils equal. Conjunctiva miguel a l. HEENT: External appearance of nose and ears normal, oral cavity grossly normal. NECK: JVD not raised; masses not palpable. HEART: First and second heart sounds are normal; no edema. LUNGS: Respiratory rate normal; decreased breath sounds. ABDOMEN: Soft, nontender, liver spleen not palpable, no masses palpable. PSYCH: Alert and oriented x3; mood and affect tired a l. MUSCULOSKELETAL:No Clubbing/cyanosis;muscles-grossly intact. Loss of subcutaneous fat. Loss of muscle mass. NEUROLOGICAL: Cranial nerves grossly intact; no facial asymmetry, power and sensation grossly intact. LYMPHATICS: No lymph nodes palpable in the axilla and neck INVESTIGATIONS, reviewed in the clinical context: January 13: Potassium 4.1 BUN 14 creatinine 0.49 blood glucose 342 January 12: White count 9.4 hemoglobin 13.6 platelets 289 sodium 134 potassium 4.5 bicarb 5 creatinine 0.74 blood glucose 440 UA: Glucose 4+ ketones 4+. Serum acetone positive Acute abdominal series: Unremarkable Assessment plan: -Acute diabetic ketoacidosis the patient was having nausea vomiting for 2 days. Started on IV insulin drip. Per protocol. -Severe weight loss in the course of last 2 months. With new onset of constipation. Rule out GI malignancy. CT scan chest abdomen pelvis with and without contrast. Consult general surgery. -Anxiety Xanax 0.5 p.o. 3 times daily as needed -COPD in prior smoker. Continue inhalers from home -Primary osteoarthritis Tylenol as needed -Severe protein calorie malnutrition Nutritional supplements Patient on IV heparin drip. Discussed with patient. Workup to rule out malignancy. Will also check CEA, AFP. PSA Past Medical History Past Medical History: COPD, Diabetes Mellitus, Hyperlipidemia, Hypertension, Osteoarthritis (OA), Vascular Disorder Additional Past Medical History / Comment(s): TENDONITIS RT ELBOW, "Cyst behind rt eye", right leg & foot pain- tx. " bad Teeth". PORRAS History of Any Multi-Drug Resistant Organisms: None Reported Past Surgical History: Orthopedic Surgery Additional Past Surgical History / Comment(s): testicular surgery, reconstructive surgery on left ring finger, rt shoulder rotator cuff, recent ao rtogram Past Anesthesia/Blood Transfusion Reactions: No Reported Reaction Past Psychological History: Anxiety Smoking Status: Former smoker Past Alcohol Use History: Occasional Additional Past Alcohol Use History / Comment(s): quit smoking 2020, smoked for 30 yrs Past Drug Use History: Marijuana Additional Drug Use History / Comment(s): medical- occ use, pt aware not to use 24 hrs before procedure - Past Family History Mother Family Medical History: Cancer Additional Family Medical History / Comment(s): LUNG CANCAR Medications and Allergies Home Medications Medication Instructions Recorded Confirmed Type ALPRAZolam [Xanax] 0.5 mg PO TID PRN 12/31/21 01/14/24 History Aspirin [Adult Low Dose Aspirin EC] 81 mg PO DAILY 12/31/21 01/14/24 History Spironolactone 25 mg PO DAILY 09/12/23 01/14/24 History lisinopriL 2.5 mg PO DAILY 09/12/23 01/14/24 History Clopidogrel [Plavix] 75 mg PO DAILY 12/14/23 01/14/24 History Insulin Aspart (Niacinamide) See Protocol SQ AC-TID 12/14/23 01/14/24 History [Fiasp 100 Unit/ml Vial] Insulin Degludec [Tresiba] 30 units SQ DAILY 12/14/23 01/14/24 History Metoprolol Succinate [Toprol XL] 50 mg PO DAILY 12/14/23 01/14/24 History Fluticasone/Umeclidin/Vilanter 1 puff INHALATION RT-DAILY 01/14/24 01/14/24 History [Trelegy Ellipta 200-62.5-25] Levofloxacin [Levaquin] 500 mg PO DAILY 01/14/24 01/14/24 History methylPREDNISolone Dose Pack 4 mg PO DIRECTED 01/14/24 01/14/24 History [Medrol Dose Pack] Allergies Allergy/AdvReac Type Severity Reaction Status Date / Time No Known Allergies Allergy Verified 01/14/24 11:03 Physical Exam Vitals: Vital Signs Temp Pulse Pulse Pulse Resp BP BP 01/14/24 08:45 98.7 F 61 16 112/61 01/14/24 04:12 98.2 F 96 16 107/61 01/14/24 04:00 98.2 F 96 16 107/61 01/14/24 01:00 106 H 16 104/63 01/14/24 00:00 104 H 16 109/55 01/13/24 23:20 107 H 149/85 01/13/24 22:12 97.0 F L 124 H 18 123/69 Pulse Ox 01/14/24 08:45 96 01/14/24 04:12 98 01/14/24 04:00 98 01/14/24 01:00 99 01/14/24 00:00 100 01/13/24 23:20 97 01/13/24 22:12 100 Intake and Output 01/13/24 01/14/24 01/14/24 22:59 06:59 14:59 Intake Total 7.995 251.255 Output Total 400 Balance 7.995 -148.745 Intake: Intake, IV Titration 7.995 11.255 Amount Insulin Regular 100 unit 7.995 11.255 In Sodium Chloride 0.9% 100 ml @ 0.1 UNITS/KG/HR 4.948 mls/hr IV .[id number] [facility] Rx#:[id number] Oral 240 Output: Urine 400 Other: Weight 48.988 kg 48.988 kg 45.314 kg Results CBC & Chem 7: 01/13/24 22:40 01/14/24 10:29 Labs: Abnormal Lab Results - Last 24 Hours (Table) 01/13/24 01/13/24 01/13/24 Range/Units 22:27 22:40 22:40 RBC 4.21 L (4.30-5.90) m/uL MCV 103.9 H D (80.0-100.0) fL VBG pCO2 (37-51) mmHg VBG HCO3 (24-28) mmol/L Sodium 134 L (137-145) mmol/L Carbon Dioxide 5 L* (22-30) mmol/L BUN 21 H (9-20) mg/dL Creatinine (0.66-1.25) mg/dL Glucose 440 H (74-99) mg/dL POC Glucose (mg/dL) 418 H (70-110) mg/dL ALT 345 H (4-49) U/L Alkaline Phosphatase 414 H (38-126) U/L Total Protein 6.1 L (6.3-8.2) g/dL Urine Glucose (UA) (Negative) Urine Ketones (Negative) 01/14/24 01/14/24 01/14/24 Range/Units 00:22 00:40 01:36 RBC (4.30-5.90) m/uL MCV (80.0-100.0) fL VBG pCO2 (37-51) mmHg VBG HCO3 (24-28) mmol/L Sodium (137-145) mmol/L Carbon Dioxide (22-30) mmol/L BUN (9-20) mg/dL Creatinine (0.66-1.25) mg/dL Glucose (74-99) mg/dL POC Glucose (mg/dL) 215 H 137 H (70-110) mg/dL ALT (4-49) U/L Alkaline Phosphatase (38-126) U/L Total Protein (6.3-8.2) g/dL Urine Glucose (UA) 4+ H (Negative) Urine Ketones 4+ H (Negative) 01/14/24 01/14/24 01/14/24 Range/Units 03:57 05:29 05:45 RBC (4.30-5.90) m/uL MCV (80.0-100.0) fL VBG pCO2 33 L (37-51) mmHg VBG HCO3 21 L (24-28) mmol/L Sodium 135 L (137-145) mmol/L Carbon Dioxide 20 L (22-30) mmol/L BUN (9-20) mg/dL Creatinine 0.46 L (0.66-1.25) mg/dL Glucose (74-99) mg/dL POC Glucose (mg/dL) 131 H (70-110) mg/dL ALT (4-49) U/L Alkaline Phosphatase (38-126) U/L Total Protein (6.3-8.2) g/dL Urine Glucose (UA) (Negative) Urine Ketones (Negative) 01/14/24 01/14/24 01/14/24 Range/Units 06:45 07:01 09:12 RBC (4.30-5.90) m/uL MCV (80.0-100.0) fL VBG pCO2 (37-51) mmHg VBG HCO3 (24-28) mmol/L Sodium (137-145) mmol/L Carbon Dioxide (22-30) mmol/L BUN (9-20) mg/dL Creatinine (0.66-1.25) mg/dL Glucose (74-99) mg/dL POC Glucose (mg/dL) 55 L 63 L 348 H (70-110) mg/dL ALT (4-49) U/L Alkaline Phosphatase (38-126) U/L Total Protein (6.3-8.2) g/dL Urine Glucose (UA) (Negative) Urine Ketones (Negative) 01/14/24 01/14/24 01/14/24 Range/Units 10:05 10:29 10:59 RBC (4.30-5.90) m/uL MCV (80.0-100.0) fL VBG pCO2 (37-51) mmHg VBG HCO3 (24-28) mmol/L Sodium 130 L (137-145) mmol/L Carbon Dioxide 14 L (22-30) mmol/L BUN (9-20) mg/dL Creatinine 0.49 L (0.66-1.25) mg/dL Glucose 342 H (74-99) mg/dL POC Glucose (mg/dL) 384 H 292 H (70-110) mg/dL ALT (4-49) U/L Alkaline Phosphatase (38-126) U/L Total Protein (6.3-8.2) g/dL Urine Glucose (UA) (Negative) Urine Ketones (Negative) 01/14/24 Range/Units 11:17 RBC (4.30-5.90) m/uL MCV (80.0-100.0) fL VBG pCO2 (37-51) mmHg VBG HCO3 (24-28) mmol/L Sodium (137-145) mmol/L Carbon Dioxide (22-30) mmol/L BUN (9-20) mg/dL Creatinine (0.66-1.25) mg/dL Glucose (74-99) mg/dL POC Glucose (mg/dL) 278 H (70-110) mg/dL ALT (4-49) U/L Alkaline Phosphatase (38-126) U/L Total Protein (6.3-8.2) g/dL Urine Glucose (UA) (Negative) Urine Ketones (Negative) Thrombosis Risk Factor Assmnt - Choose All That Apply Each Risk Factor Represents 2 Points: Age 61-74 years Thrombosis Risk Factor Assessment Total Risk Factor Score: 2 Thrombosis Risk Factor Assessment Level: Low Risk
[2024-01-14 14:56] LABS: African American GFR (CKD) >90 (>60 ml/min/1.73 sqM); Anion Gap 6 mmol/L; Blood Urea Nitrogen 11 mg/dL (9-20); Carbon Dioxide 19 mmol/L (22-30); Chloride 103 mmol/L (98-107); Glucose 176 mg/dL (74-99); Non-African American GFR(CKD) >90 (>60 ml/min/1.73 sqM); Phosphorus 2.2 mg/dL (2.5-4.5); Potassium 4.1 mmol/L (3.5-5.1); Sodium 128 mmol/L (137-145)
[2024-01-14 15:02] LABS: Glucose,Whole Blood 167 mg/dL (70-110)
[2024-01-14] MEDS: ENOXAPARIN 40 MG/0.4 ML SYRINGE SQ SCH (15:03)
[2024-01-14] MEDS: IOPAMIDOL CONTRAST (ORAL USE) VIAL PO PRN ×2 (15:37→16:32)
[2024-01-14] MEDS: INSULIN ASPART (NovoLOG) 100 UNIT/ML VIAL SQ SCH (16:55)
[2024-01-14 16:59] LABS: Glucose,Whole Blood 122 mg/dL (70-110)
[2024-01-14] MEDS: INSULIN NPH 100 UNIT/ML 10 ML VIAL SQ SCH (17:01)
[2024-01-14 20:31] LABS: Glucose,Whole Blood 73 mg/dL (70-110)
--- NOTE | 2024-01-14 20:34 | P.CON ---
Consult Note - . Consult date: 01/14/24 Assessment/Plan:: Patient is a 63 yo male w/ abdominal pain currently in DKA. Patient currently denies bowel movements over the last 4 days. He admits to early satiety with no associated nausea and emesis. Also admits to dysuria as well. He is aware of chronic constipation but denies signficant regimen and states it gets out of hand when his "sugars are acting up". Currently denies fevers chills, shortness of breath, or chest pain. Review of systems: GEN.: Tired weight loss decreased appetite EYES: None HEENT: None NECK: None RESPIRATORY: None CARDIOVASCULAR: None GASTROINTESTINAL: As above GENITOURINARY: None MUSCULOSKELETAL: None LYMPHATICS: None HEMATOLOGICAL: None PSYCHIATRY: None NEUROLOGICAL: None PMH: copd, diabetes, osteo PSH: Denies Social history: Patient is . Smoking in 2020. Smoked for 30 years. Alcohol occa sionally. Does use medical marijuana. Physical examination: VITAL SIGNS: 97, 124, 18, 123/69, 100% room air upon presentation GENERAL: BMI 15.2, laying in bed tired. EYES: Pupils equal. Conjunctiva miguel a l. HEENT: External appearance of nose and ears normal, oral cavity grossly normal. NECK: JVD not raised; masses not palpable. HEART: First and second heart sounds are normal; no edema. LUNGS: Respiratory rate normal; decreased breath sounds. ABDOMEN: Soft, nontender, liver spleen not palpable, no masses palpable. PSYCH: Alert and oriented x3; mood and affect tired a l. MUSCULOSKELETAL:No Clubbing/cyanosis;muscles-grossly intact. Loss of subcutaneous fat. Loss of muscle mass. NEUROLOGICAL: Cranial nerves grossly intact; no facial asymmetry, power and sensation grossly intact. LYMPHATICS: No lymph nodes palpable in the axilla and neck INVESTIGATIONS, reviewed in the clinical context: January 13: Potassium 4.1 BUN 14 creatinine 0.49 blood glucose 342 January 12: White count 9.4 hemoglobin 13.6 platelets 289 sodium 134 potassium 4.5 bicarb 5 creatinine 0.74 blood glucose 440 UA: Glucose 4+ ketones 4+. Serum acetone positive Acute abdominal series: Unremarkable ASSESSMENT: 63 yo male w/ constipation urinary retention DKA -ctap reviewed stool in rectal vault -no abdominal pain -will order senna/colace and x 1 dulcolax suppository
[2024-01-14] MEDS: DOCUSATE 100 MG CAP PO SCH (22:12)
--- NOTE | 2024-01-14 23:47 | CT ---
EXAMINATION TYPE: CT ChestAbdPelvis w con DATE OF EXAM: 01/14/2024 COMPARISON: Prior chest CT January 30, 2019 HISTORY: Low BMI, weight loss, concern for malignancy. CT DLP: 539.2 mGycm. Automated Exposure Control for Dose Reduction was Utilized. CONTRAST: CT scan of the thorax, abdomen and pelvis is performed with oral and with IV Contrast, patient inject ed with 100 ml mL of Isovue 300. FINDINGS: LUNGS: The lungs are grossly clear, there is no concerning parenchymal mass or nodule identified. No focal consolidation. There is no pleural effusion or pneumothorax seen. The tracheobronchial tree i s patent. MEDIASTINUM: There are no greater than 1 cm hilar or mediastinal lymph nodes. No cardiomegaly or pe ricardial effusion is seen. Coronary artery calcification is seen. LIVER/GB: There are 3-4 subcentimeter rounded low dense lesions throughout the liver that are too sma ll to further characterize. A vague 2.5 cm hyperdense area axial image 65 could reflect mass lesion v ersus transient hepatic attenuation difference, it was present on 2019 study suggesting it is benign. There is washout noted on delayed imaging being more hypodense relative to remainder of liver. PANCREAS: No significant abnormality is seen. SPLEEN: No significant abnormality is seen. ADRENALS: No significant abnormality is seen. KIDNEYS: Mild to moderately distended bladder. BOWEL: Oral contrast does not extend to colonic level. Patient has little internal fat making evaluat ion suboptimal. No abnormal small or large bowel dilatation is seen. Moderate rectal fecal prominence . GENITAL ORGANS: No gross abnormality seen. LYMPH NODES: No greater than 1cm abdominal or pelvic lymph nodes are appreciated. OSSEOUS STRUCTURES: Prominent Schmorl node superior L3 endplate. OTHER: Moderate diffuse subcutaneous edema blurs the fat planes in the subcutaneous fat. Moderate per ipheral plaque of the infrarenal aorta extends into branch vessels. There is significant stenosis in the right renal artery seen on coronal images 38 and 39. IMPRESSION: 1. No obvious concerning new mass or adenopathy to suggest malignancy. 2. Stable in size 2.5 cm right hepatic lobe mass, suspect FNH or hepatic adenoma. Nonemergent liver p rotocol MRI can be performed to further evaluate and characterize. 3. Overall nonobstructive bowel gas pattern. Moderate colonic fecal stasis or constipation is seen. 4. Moderate plaque of the aorta extending into branch vessels. Significant stenosis in the proximal r ight renal artery is felt present. Correlate clinically for uncontrolled hypertension.
[2024-01-15 02:53] LABS: Glucose,Whole Blood 78 mg/dL (70-110)
[2024-01-15 06:05] LABS: Glucose,Whole Blood 131 mg/dL (70-110)
[2024-01-15 06:55] LABS: African American GFR (CKD) >90 (>60 ml/min/1.73 sqM); Anion Gap 1 mmol/L; Blood Urea Nitrogen 7 mg/dL (9-20); Calcium 8.2 mg/dL (8.4-10.2); Carbon Dioxide 26 mmol/L (22-30); Chloride 101 mmol/L (98-107); Glucose 154 mg/dL (74-99); Non-African American GFR(CKD) >90 (>60 ml/min/1.73 sqM); Potassium 3.9 mmol/L (3.5-5.1); Sodium 128 mmol/L (137-145)
[2024-01-15] MEDS: INSULIN DETEMIR (LEVEMIR) 100 UNIT/ML SYR SQ SCH (07:09)
[2024-01-15] MEDS: polyethylene glycoL 3350 17 GM POWD.PACK PO SCH (08:19)
[2024-01-15] MEDS: bisacodyL 10 MG SUPP RECTAL STA (08:47)
[2024-01-15 10:02] LABS: Carcinoembryonic Antigen 4.5 ng/mL (0.0-4.9)
[2024-01-15 10:07] LABS: Alpha Fetoprotein, Tumor Mkr <3.00 ng/mL (0.00-7.90)
[2024-01-15 11:46] LABS: Glucose,Whole Blood 140 mg/dL (70-110)
--- NOTE | 2024-01-15 12:22 | P.PN ---
Subjective Progress Note Date: 01/15/24 Principal diagnosis: Constipation Patient was seen yesterday for constipation issues. States he was impacted and yesterday evening had a very large hard stool and following that had significant loose stools. Feels well at this time. Says he is voiding well now. Last colonoscopy 8 years ago. No rectal bleeding. Tolerating diet. Objective - Vital Signs Vital signs: Vital Signs Temp 98.2 F 01/15/24 08:15 Pulse 94 01/15/24 09:26 Resp 16 01/15/24 08:15 BP 140/67 01/15/24 08:15 Pulse Ox 98 01/15/24 08:15 FiO2 Intake & Output 01/14/24 01/15/24 01/15/24 18:59 06:59 18:59 Intake Total 276.201 336 Output Total 725 1000 Balance -448.799 -1000 336 Weight 45.314 kg Intake: Intake, IV Titration 36.201 Amount Insulin Regular 100 unit 36.201 In Sodium Chloride 0.9% 100 ml @ 0.1 UNITS/KG/HR 4.948 mls/hr IV .[id number] [facility] Rx#:[id number] Oral 240 336 Output: Urine 725 1000 Other: # Voids 2 0 # Bowel Movements 0 1 0 - Exam Abdomen: Soft, nontender, nondistended - Labs CBC & Chem 7: 01/13/24 22:40 01/15/24 06:22 Labs: Abnormal Lab Results - Last 24 Hours (Table) 01/14/24 01/14/24 01/14/24 Range/Units 12:56 14:07 14:20 Sodium 128 L (137-145) mmol/L Carbon Dioxide 19 L (22-30) mmol/L BUN (9-20) mg/dL Creatinine 0.53 L (0.66-1.25) mg/dL Glucose 176 H (74-99) mg/dL POC Glucose (mg/dL) 210 H 213 H (70-110) mg/dL Calcium (8.4-10.2) mg/dL Phosphorus 2.2 L (2.5-4.5) mg/dL 01/14/24 01/14/24 01/15/24 Range/Units 15:00 16:46 06:04 Sodium (137-145) mmol/L Carbon Dioxide (22-30) mmol/L BUN (9-20) mg/dL Creatinine (0.66-1.25) mg/dL Glucose (74-99) mg/dL POC Glucose (mg/dL) 167 H 122 H 131 H (70-110) mg/dL Calcium (8.4-10.2) mg/dL Phosphorus (2.5-4.5) mg/dL 01/15/24 01/15/24 Range/Units 06:22 11:42 Sodium 128 L (137-145) mmol/L Carbon Dioxide (22-30) mmol/L BUN 7 L (9-20) mg/dL Creatinine 0.45 L (0.66-1.25) mg/dL Glucose 154 H (74-99) mg/dL POC Glucose (mg/dL) 140 H (70-110) mg/dL Calcium 8.2 L (8.4-10.2) mg/dL Phosphorus (2.5-4.5) mg/dL Assessment and Plan (1) Constipation Narrative/Plan: 63-year-old male with significant constipation. Improved after suppositories and stool softeners. Continue regular diet. Continue stool softeners. Recommend outpatient colonoscopy. Patient states he will contact Dr. Ya since she sees his family members. Will sign off. Please call if needed. Current Visit: Yes Status: Acute Code(s): K59.00 - CONSTIPATION, UNSPECIFIED SNOMED Code(s): 28178002
[2024-01-15 12:53] VITALS: BP 122/66; PULSE 90; TEMP 98.1
--- NOTE | 2024-01-15 13:40 | P.DS ---
Providers Date of admission: 01/14/24 01:14 Expected date of discharge: 01/15/24 Attending physician: Scott Drummond Primary care physician: Servando Whalen [facility] Course: Chief Complaint: Nausea vomiting Rounding for Dr. Servando Whalen. This is a pleasant 63-year-old patient follows with Dr. Servando Whalen. Chronic stable medical condition include COPD, hypertension, hyperlipidemia, osteoarthritis, anxiety. Patient has been on insulin for 10 years. Last 2 months patient is no disease at weight loss. Gets constipated. Was having a regular bowel movement prior. Now he goes every 2 to 3 days. This occasion again got constipated. Started having nausea vomiting. No fever no chills. Came to the ER. Found to be in diabetic ketoacidosis. Put on insulin drip. Did eat about 50% of his breakfast this morning, not hungry for lunch. January 14: Doing better. Seen by surgery. Patient had a large bowel movement yesterday evening. Outpatient follow-up with Dr. Ken for colonoscopy. CT scan chest abdomen pelvis shows stable 2.5 cm right hepatic lobe mass. Will have the patient follow-up with Dr. Atkins. Some stenosis in the right renal artery. Discussed with patient. Discussion and discharge planning more than 35 minutes Social history: Patient is . Smoking in 2020. Smoked for 30 years. Alcohol occasionally. Does use medical marijuana. Physical examination: VITAL SIGNS: 9 98.1, 92, 16, 122 x 66, 99% room air GENERAL: Comfortable EYES: Pupils equal. Conjunctiva miguel a l. HEENT: External appearance of nose and ears normal, oral cavity grossly normal. NECK: JVD not raised; masses not palpable. HEART: First and second heart sounds are normal; no edema. LUNGS: Respiratory rate normal; decreased breath sounds. ABDOMEN: Soft, nontender, liver spleen not palpable, no masses palpable. PSYCH: Alert and oriented x3; mood and affect tired a l. MUSCULOSKELETAL:No Clubbing/cyanosis;muscles-grossly intact. Loss of subcutaneous fat. Loss of muscle mass. INVESTIGATIONS, reviewed in the clinical context: CEA: 4.5 AFP less than 3 CT scan chest abdomen pelvis. Results noted January 13: Potassium 4.1 BUN 14 creatinine 0.49 blood glucose 342 January 12: White count 9.4 hemoglobin 13.6 platelets 289 sodium 134 potassium 4.5 bicarb 5 creatinine 0.74 blood glucose 440 UA: Glucose 4+ ketones 4+. Serum acetone positive Acute abdominal series: Unremarkable Assessment plan: -Acute diabetic ketoacidosis the patient was having nausea vomiting for 2 days.: Resolved -Severe weight loss in the course of last 2 months. With new onset of constipation. Rule out GI malignancy. CT scan chest abdomen pelvis with and without contrast. Results noted. Patient is due to follow-up with Dr. Ya outpatient for colonoscopy -CAD with prior history of stent Aspirin Plavix -Chronic congestive heart failure from systolic dysfunction from ischemic cardiomyopathy. Last EF 47% Continue Aldactone -Right renal artery stenosis on CT scan -Right liver mass 2.5 cm. Follow-up with Dr. Reggie Atkins. -Anxiety Xanax 0.5 p.o. 3 times daily as needed -COPD in prior smoker. Continue inhalers from home -Primary osteoarthritis Tylenol as needed -Severe protein calorie malnutrition Nutritional supplements Disposition: Home Past Medical History Past Medical History: COPD, Diabetes Mellitus, Hyperlipidemia, Hypertension, Osteoarthritis (OA), Vascular Disorder Additional Past Medical History / Comment(s): TENDONITIS RT ELBOW, "Cyst behind rt eye", right leg & foot pain- tx. " bad Teeth". PORRAS History of Any Multi-Drug Resistant Organisms: None Reported Past Surgical History: Orthopedic Surgery Additional Past Surgical History / Comment(s): testicular surgery, reconstructive surgery on left ring finger, rt shoulder rotator cuff, recent aortogram Past Anesthesia/Blood Transfusion Reactions: No Reported Reaction Past Psychological History: Anxiety Smoking Status: Former smoker Past Alcohol Use History: Occasional Additional Past Alcohol Use History / Comment(s): quit smoking 2020, smoked for 30 yrs Past Drug Use History: Marijuana Additional Drug Use History / Comment(s): medical- occ use, pt aware not to use 24 hrs before procedure Plan - Discharge Summary Discharge Rx Participant: No New Discharge Prescriptions: New Psyllium Husk 100% [Metamucil Packet] 6 gm PO DAILY #30 packet Continue ALPRAZolam [Xanax] 0.5 mg PO TID PRN PRN Reason: Anxiety Aspirin [Adult Low Dose Aspirin EC] 81 mg PO DAILY Insulin Aspart (Niacinamide) [Fiasp 100 Unit/ml Vial] See Protocol SQ AC-TID Clopidogrel [Plavix] 75 mg PO DAILY Metoprolol Succinate [Toprol XL] 50 mg PO DAILY lisinopriL 2.5 mg PO DAILY Spironolactone 25 mg PO DAILY Fluticasone/Umeclidin/Vilanter [Trelegy Ellipta 200-62.5-25] 1 puff INHALATION RT-DAILY Changed Insulin Degludec [Tresiba] 20 units SQ DAILY #0 Discontinued methylPREDNISolone Dose Pack [Medrol Dose Pack] 4 mg PO DIRECTED Levofloxacin [Levaquin] 500 mg PO DAILY Discharge Medication List ALPRAZolam [Xanax] 0.5 mg PO TID PRN 12/31/21 [History] Aspirin [Adult Low Dose Aspirin EC] 81 mg PO DAILY 12/31/21 [History] Spironolactone 25 mg PO DAILY 09/12/23 [History] lisinopriL 2.5 mg PO DAILY 09/12/23 [History] Clopidogrel [Plavix] 75 mg PO DAILY 12/14/23 [History] Insulin Aspart (Niacinamide) [Fiasp 100 Unit/ml Vial] See Protocol SQ AC-TID 12/14/23 [History] Metoprolol Succinate [Toprol XL] 50 mg PO DAILY 12/14/23 [History] Fluticasone/Umeclidin/Vilanter [Trelegy Ellipta 200-62.5-25] 1 puff INHALATION RT-DAILY 01/14/24 [History] Insulin Degludec [Tresiba] 20 units SQ DAILY #0 01/15/24 [Rx] Psyllium Husk 100% [Metamucil Packet] 6 gm PO DAILY #30 packet 01/15/24 [Rx] Follow up Appointment(s)/Referral(s): Servando Whalen MD [Primary Care Provider] - 1-2 days Hayley Ya MD [STAFF PHYSICIAN] - 1 Week
== END 2024-01-15 16:04 | disposition home or self-care (01) | DRG 637 ==
LOC: EC 22:11 → 3SCARD 01-14 01:14
PROVIDERS: ADMIT Hospitalist; ATTEND Hospitalist
DX: E11.10 Type 2 diabetes mellitus with ketoacidosis without coma (principal); E43 Unspecified severe protein-calorie malnutrition; I50.22 Chronic systolic (congestive) heart failure; Z68.1 Body mass index [BMI] 19.9 or less, adult; I11.0 Hypertensive heart disease with heart failure; I70.1 Atherosclerosis of renal artery; J44.9 Chronic obstructive pulmonary disease, unspecified; E11.51 Type 2 diabetes mellitus with diabetic peripheral angiopathy without gangrene; Z79.4 Long term (current) use of insulin; R16.0 Hepatomegaly, not elsewhere classified; I25.5 Ischemic cardiomyopathy; I25.10 Atherosclerotic heart disease of native coronary artery without angina pectoris; F41.9 Anxiety disorder, unspecified; E78.5 Hyperlipidemia, unspecified; R30.0 Dysuria; R33.9 Retention of urine, unspecified; K59.00 Constipation, unspecified; M19.91 Primary osteoarthritis, unspecified site; Z79.02 Long term (current) use of antithrombotics/antiplatelets; Z79.51 Long term (current) use of inhaled steroids; Z79.82 Long term (current) use of aspirin; Z79.899 Other long term (current) drug therapy; Z87.891 Personal history of nicotine dependence; Z95.5 Presence of coronary angioplasty implant and graft; Z71.3 Dietary counseling and surveillance
CPT/HCPCS: 36415; 71260; 74022; 74177; 80048; 80051; 80053; 81003; 82009; 82105; 82150; 82378; 82565; 82803; 82947; 83690; 84100; 84153; 84520; 85025; 94640; 96361; 96374; 99291

== ENCOUNTER 2024-04-03 20:27 | Inpatient (IN) | payer MEDICARE ==
[2024-04-03 20:32] LABS: Glucose,Whole Blood >600 mg/dL (70-110)
[2024-04-03] MEDS: SODIUM CHLORIDE 0.9% 1,000 ML IV ONE ×2 (20:49→20:50)
[2024-04-03 21:06] LABS: ALT 492 U/L (4-49); AST 200 U/L (17-59); African American GFR (CKD) 62 (>60 ml/min/1.73 sqM); Albumin 3.9 g/dL (3.5-5.0); Alcohol <10 mg/dL; Alkaline Phosphatase 528 U/L (38-126); Blood Urea Nitrogen 33 mg/dL (9-20); Calcium 9.6 mg/dL (8.4-10.2); Chloride 100 mmol/L (98-107); Non-African American GFR(CKD) 53 (>60 ml/min/1.73 sqM); Potassium 5.9 mmol/L (3.5-5.1); Sodium 138 mmol/L (137-145); Total Bilirubin 0.4 mg/dL (0.2-1.3); Total Protein 5.8 g/dL (6.3-8.2)
[2024-04-03 21:09] LABS: INR 0.9 (<1.2); Partial Thromboplastin Time 23.2 sec (22.0-30.0); Prothrombin Time 10.5 sec (10.0-12.5)
[2024-04-03 21:29] LABS: Glucose 1119 mg/dL (74-99)
[2024-04-03 21:30] LABS: Carbon Dioxide <5 mmol/L (22-30)
--- NOTE | 2024-04-03 21:57 | CT ---
EXAMINATION TYPE: CT brain cspine wo con CT DLP: 1333.7 mGycm, Automated exposure control for dose reduction was used. DATE OF EXAM: 04/03/2024 9:25 PM COMPARISON: 01/30/2019, 12/14/2023. CLINICAL INDICATION:Male, 63 years old with history of found down, ams; Found down, AMS. TECHNIQUE: Brain: Multiple axial CT images of the brain were obtained without IV contrast. Cspine: Axial CT images from the skull base to the inferior aspect of T2 we obtained without intraven ous contrast. Coronal and sagittal reformatted images were also reviewed. . FINDINGS: Brain: Extra-axial spaces: No abnormal extra-axial fluid collections. Ventricular system: Within normal limits Cerebral parenchyma: No acute intraparenchymal hemorrhage or mass effect. The aponte-white junction is well differentiated. Cerebellum: Unremarkable. Mass effect: No evidence of midline shift. Intracranial vasculature: Atherosclerotic calcifications of the intracranial vessels. Soft tissues: Normal. Calvarium/osseous structures: No depressed skull fracture. Paranasal sinuses and mastoid air cells: Clear. Visualized orbits: Orbital contents are intact. Cervical spine: Fracture: None. Osseous structures: Unremarkable Vertebral alignment: Within normal limits. Spinal canal/Neural Foramina: No evidence of significant spinal canal narrowing. No evidence for sign ificant neural foraminal stenosis. Neck soft tissues: Prevertebral soft tissues are within normal limits. Other: The airway is patent. Severe atherosclerotic desiccation at the carotid bifurcations. 3 mm nod ule left upper lobe is stable from 2019. IMPRESSION: 1. No acute intracranial process. 2. No evidence of cervical spine fracture. 3. Mild multilevel degenerative disc disease.
--- NOTE | 2024-04-03 21:58 | XR ---
EXAMINATION TYPE: XR chest 2V DATE OF EXAM: 04/03/2024 9:34 PM CLINICAL INDICATION:Male, 63 years old with history of altered mental status; [facility] COMPARISON: Chest radiographs from 12/14/2023 TECHNIQUE: XR chest 2V Frontal and lateral views of the chest. FINDINGS: Lungs/Pleura: There is no evidence of pleural effusion, focal consolidation, or pneumothorax. Pulmonary vascularity: Unremarkable. Heart/mediastinum: Cardiomediastinal silhouette is unremarkable. Musculoskeletal: No acute osseous pathology. Other findings: None IMPRESSION: No acute cardiopulmonary disease/process.
[2024-04-03 22:14] LABS: ABG Oxygen Saturation 98.5 % (94-97); ABG PO2 151 mmHg (83-108); Allen Test Performed? Yes
[2024-04-03 22:15] LABS: HGB 12.5 gm/dL (13.0-17.5); Hypochromasia Marked; MCH 33.1 pg (25.0-35.0); MCHC 27.1 g/dL (31.0-37.0); MCV 122.2 fL (80.0-100.0); Macrocytosis Marked; Mean Platelet Volume 10.2; Platelet Count 327 k/uL (150-450); RBC 3.77 m/uL (4.30-5.90); RDW 13.5 % (11.5-15.5); WBC 29.4 k/uL (3.8-10.6)
[2024-04-03 22:51] LABS: ABG PCO2 <15 mmHg (35-45); ABG PH 6.89 (7.35-7.45)
--- NOTE | 2024-04-03 23:08 | US ---
EXAMINATION TYPE: US gallbladder DATE OF EXAM: 04/03/2024 COMPARISON: CT 01/14/2024 CLINICAL INDICATION: Male, 63 years old with history of elevated liver enzymes; Elevated liver enzyme s. Uncooperative patient TECHNIQUE: Multiple sonographic images of the right upper quadrant are obtained. FINDINGS: EXAM MEASUREMENTS: Liver Length: 15.1 cm Gallbladder Wall: 0.3 cm CBD: 0.7 cm Right Kidney: 12.1 x 4.3 x 4.7 cm HEEL LIFT GOUGER NOTES:Limited exam due to uncooperative patient. Patient would not roll into LLD for ad ditional GB views. Stomach also appears full Pancreas: Obscured by bowel gas Liver: Appears slightly hyperechoic. Lesion seen on 01/14/2024 CT not visualized with ultrasound today Gallbladder: There is a 2.3 cm echogenic area with posterior shadowing seen within the gallbladder Evidence for sonographic Lacey's sign: No CBD: Slightly enlarged Right Kidney: Upper limits of normal in size. No hydro or masses seen as best visualized today Suboptimal study due to patient noncooperation per technologist. Visualized pancreas unremarkable. Po rtions obscured by overlying bowel gas. Liver is heterogeneously hyperechoic. Evaluation for focal ma sses suboptimal due to the heterogeneity. Large shadowing mobile gallstone. Gallbladder wall thicknes s upper limits of normal. Sonographic Lacey sign negative per technologist. Common bile duct minimal ly dilated. No right-sided hydronephrosis. Fluid prominent stomach partially imaged. IMPRESSION: Gallstone without ultrasound evidence for acute cholecystitis. Heterogeneous hyperechoic appearance of liver consistent with fatty infiltrative hepatocellular disease redemonstrated.
[2024-04-03 23:11] LABS: Anisocytosis (M) Present; Band Neutrophils % 15 %; Eosinophils # (M) 0.29 k/uL (0-0.7); Lymphocytes # (M) 4.41 k/uL (1.0-4.8); Metamyelocytes # (M) 0.88 k/uL (0); Metamyelocytes % 3 %; Monocytes # (M) 1.76 k/uL (0-1.0); Myelocytes # (M) 0.29 k/uL (0); Myelocytes % 1 %; Neutrophils % (M) 61 %; Nucleated Red Blood Cells 0 /100 WBC (0-0); Polychromasia Present; Total Cells Counted 200
[2024-04-03 23:22] LABS: Glucose,Whole Blood >600 mg/dL (70-110)
[2024-04-03] MEDS: SODIUM BICARB 8.4% 50 ML SYR (1 MEQ/ML) IV STA ×2 (23:43)
[2024-04-03] MEDS: INSULIN REGULAR 100 UNIT in SODIUM CHLORIDE 0.9% 100 ML IV SCH (23:49)
--- NOTE | 2024-04-03 23:49 | ED ---
General Adult HPI - General Chief complaint: Recheck/Abnormal Lab/Rx Stated complaint: Unresponsive Time Seen by Provider: 04/03/24 20:35 Source: patient, EMS Mode of arrival: ambulatory Limitations: altered mental status - History of Present Illness Initial comments: 63-year-old male with past medical history of type 1 diabetes who presents e mergency department with altered mental status. Per EMS he was found down at home. His last known well was 90 minutes prior to this. He was found by his mom. Patient is a known diabetic. His last dose of insulin had been yesterday. States that he did not take his insulin today because he was not feeling well. EMS performed an Accu-Chek and the glucose monitor read "high". Patient is responsive at this time however some of his speech is garbled. He does admit to hitting his head at home. Denies neck or back pain. He does take Plavix. No reported fevers. No other alleviating, precipitating or modifying factors - Related Data Home Medications Medication Instructions Recorded Confirmed ALPRAZolam [Xanax] 0.5 mg PO TID PRN 12/31/21 04/04/24 Aspirin [Adult Low Dose Aspirin EC] 81 mg PO DAILY 12/31/21 04/04/24 Clopidogrel [Plavix] 75 mg PO DAILY 12/14/23 04/04/24 Insulin Aspart (Niacinamide) See Protocol SQ AC-TID 12/14/23 04/04/24 [Fiasp 100 Unit/ml Vial] Metoprolol Succinate [Toprol XL] 50 mg PO DAILY 12/14/23 04/04/24 Fluticasone/Umeclidin/Vilanter 1 puff INHALATION RT-DAILY 01/14/24 04/04/24 [Trelepeg Ellipta 200-62.5-25] Atorvastatin [Lipitor] 80 mg PO DAILY 04/04/24 04/04/24 Lactulose 10 gm PO TID 04/04/24 04/04/24 Previous Rx's Medication Instructions Recorded INSULIN ASPART (NovoLOG) [NovoLOG 0 unit SQ ACHS each 04/08/24 (formulary)] Insulin Detemir (Levemir) [Levemir] 14 unit SQ HS each 04/08/24 Levofloxacin [Levaquin] 250 mg PO DAILY 7 Days #7 tab 04/08/24 Mometasone/Formoterol [Dulera 200 1 puff INHALATION BID 30 Days #13 04/08/24 Mcg-5 Mcg Inhaler] gm Pantoprazole [Protonix] 40 mg PO AC-BID 90 Days #160 tab 04/08/24 Allergies Allergy/AdvReac Type Severity Reaction Status Date / Time No Known Allergies Allergy Verified 04/04/24 09:34 Review of Systems ROS Statement: Those systems with pertinent positive or pertinent negative responses have been documented in the HPI. ROS Other: All systems not noted in ROS Statement are negative. Past Medical History Past Medical History: COPD, Diabetes Mellitus, Hyperlipidemia, Hypertension, Osteoarthritis (OA), Vascular Disorder Additional Past Medical History / Comment(s): TENDONITIS RT ELBOW, "Cyst behind rt eye", right leg & foot pain- tx. " bad Teeth". PORRAS History of Any Multi-Drug Resistant Organisms: None Reported Past Surgical History: Orthopedic Surgery Additional Past Surgical History / Comment(s): testicular surgery, reconstr uctive surgery on left ring finger, rt shoulder rotator cuff, recent aortogram Past Anesthesia/Blood Transfusion Reactions: No Reported Reaction Past Psychological History: Anxiety Smoking Status: Former smoker Past Alcohol Use History: Occasional Past Drug Use History: Marijuana - Past Family History Mother Family Medical History: Cancer Additional Family Medical History / Comment(s): LUNG CANCAR General Exam Limitations: altered mental status General appearance: lethargic Head exam: Present: atraumatic, normocephalic, normal inspection Eye exam: Present: normal appearance, PERRL, EOMI. Absent: scleral icterus, conjunctival injection, periorbital swelling ENT exam: Present: mucous membranes dry Neck exam: Present: normal inspection. Absent: tenderness, meningismus, lymphadenopathy Respiratory exam: Present: normal lung sounds bilaterally. Absent: respiratory distress, wheezes, rales, rhonchi, stridor Cardiovascular Exam: Present: regular rate, normal rhythm, normal heart sounds. Absent: systolic murmur, diastolic murmur, rubs, gallop, clicks GI/Abdominal exam: Present: soft, normal bowel sounds. Absent: distended, tenderness, guarding, rebound, rigid Extremities exam: Present: normal inspection, full ROM, normal capillary refill. Absent: tenderness, pedal edema, joint swelling, calf tenderness Neurological exam: Present: altered Psychiatric exam: Present: flat affect Course Vital Signs 04/03/24 04/03/24 04/03/24 20:34 21:58 22:43 Temperature 98.8 F Pulse Rate 101 H 99 99 Respiratory 20 20 18 Rate Blood Pressure 96/44 104/54 108/55 O2 Sat by Pulse 98 99 99 Oximetry 04/04/24 04/04/24 04/04/24 00:00 00:04 00:36 Temperature 97.6 F Pulse Rate 104 H 105 H Respiratory 19 15 19 Rate Blood Pressure 103/72 104/55 O2 Sat by Pulse 100 98 99 Oximetry 04/04/24 01:17 Temperature 97.6 F Pulse Rate 112 H Respiratory 19 Rate Blood Pressure 115/64 O2 Sat by Pulse 100 Oximetry Medical Decision Making - Medical Decision Making Was pt. sent in by a medical professional or institution (Dr. PA, ENGLISH TUTOR, urgent care, hospital, or usp...) When possible be specific @ -No Did you speak to anyone other than the patient for history (EMS, parent, family, police, friend...)? What history was obtained from this source @ -Spoke with EMS for history Did you review nursing and triage notes (agree or disagree)? Why? @ -I reviewed and agree with nursing and triage notes Were old charts reviewed (outside hosp., previous admission, EMS record, old EKG, old radiological studies, urgent care reports/EKG's, usp records)? Report findings @ -No old charts were reviewed Differential Diagnosis (chest pain, altered mental status, abdominal pain women, abdominal pain men, vaginal bleeding, weakness, fever, dyspnea, syncope, headache, dizziness, GI bleed, back pain, seizure, CVA, palpatations, mental health, musculoskeletal)? @ -Differential Altered Mental Status: Hypoglycemia, DKA, hypercapnia, ETOH, overdose, CO poisoning, trauma, myxedema coma, HTN encephalopathy, infection, encephalitis, psychosis, intercranial hemorrhage, hepatic encephalopathy, meningitis, CVA, this is not meant to be an all-inclusive list EKG interpreted by me (3pts min.). @ -Yes and demonstrates sinus tach with a rate of 100. ID interval 186. QRS 100. QTc of 426. No acute ST segment elevations or depressions X-rays interpreted by me (1pt min.). @ -Yes and demonstrates no acute process CT interpreted by me (1pt min.). @ -Yes and demonstrates no acute process U/S interpreted by me (1pt. min.). @ -Yes and demonstrates a gallstone What testing was considered but not performed or refused? (CT, X-rays, U/S, labs)? Why? @ -None What meds were considered but not given or refused? Why? @ -None Did you discuss the management of the patient with other professionals (jonn buck i.e. , PA, ENGLISH TUTOR, lab, RT, psych nurse, social insurance analyst, antisqueak worker, teacher, property utilization officer, shoe caser)? Give summary @ -Spoke with Manohar from the ICU who will admit the patient to the ICU. Also spoke with Dr. Hoang who will admit the patient Was smoking cessation discussed for >3mins.? @ -No Was critical care preformed (if so, how long)? @ -Yes, 45 minutes for management of DKA Were there social determinants of health that impacted care today? How? (Homelessness, low income, unemployed, alcoholism, drug addiction, transportation, low edu. Level, literacy, decrease access to med. care, [facility], rehab)? @ -No Was there de-escalation of care discussed even if they declined (Discuss DNR or withdrawal of care, Hospice)? DNR status @ -No What co-morbidities impacted this encounter? (DM, HTN, Smoking, COPD, CAD, Cancer, CVA, ARF, Chemo, Hep., AIDS, mental health diagnosis, sleep apnea, morbid obesity)? @ -Diabetes mellitus Was patient admitted / discharged? Hospital course, mention meds given and route, prescriptions, significant lab abnormalities, going to OR and other pertinent info. @ -Upon arrival patient seen and evaluated in room 4. Thorough history and physical exam was performed. Patient is found to be in DKA. He was given 2 L of fluid and transition to an insulin drip. CT brain, cervical spine, chest x- ray and ultrasound of the gallbladder performed. Patient does have improvement in his mental status. He will be admitted to the ICU. Spoke with Dr. Reid for admission Undiagnosed new problem with uncertain prognosis? @ -No Drug Therapy requiring intensive monitoring for toxicity (Heparin, Nitro, Insulin, Cardizem)? @ -No Were any procedures done? @ -No Diagnosis/symptom? @ -Acute encephalopathy, acute DKA, transaminitis Acute, or Chronic, or Acute on Chronic? @ -Acute Uncomplicated (without systemic symptoms) or Complicated (systemic symptoms)? @ -Complicated Side effects of treatment? @ -No Exacerbation, Progression, or Severe Exacerbation? @ -No Poses a threat to life or bodily function? How? (Chest pain, [place], [place], pneumonia, PE, COPD, DKA, ARF, appy, cholecystitis, CVA, Diverticulitis, Homicidal, Suicidal, threat to staff... and all critical care pts) @ -Yes as patient is in DKA - Lab Data Result diagrams: 04/08/24 03:31 04/08/24 03:31 Lab Results 04/03/24 04/03/24 04/03/24 Range/Units 20:31 20:31 20:31 WBC 29.4 H (3.8-10.6) k/uL RBC 3.77 L (4.30-5.90) m/uL Hgb 12.5 L (13.0-17.5) gm/dL Hct 46.0 (39.0-53.0) % MCV 122.2 H (80.0-100.0) fL MCH 33.1 (25.0-35.0) pg MCHC 27.1 L (31.0-37.0) g/dL RDW 13.5 (11.5-15.5) % Plt Count 327 (150-450) k/uL MPV 10.2 Neutrophils % (Manual) 61 % Band Neuts % (Manual) 15 % Lymphocytes % (Manual) 15 % Monocytes % (Manual) 6 % Eosinophils % (Manual) 1 % Metamyelocytes % 3 % Myelocytes % 1 % Neutrophils # (Manual) 22.30 H (1.3-7.7) k/uL Lymphocytes # (Manual) 4.41 (1.0-4.8) k/uL Monocytes # (Manual) 1.76 H (0-1.0) k/uL Eosinophils # (Manual) 0.29 (0-0.7) k/uL Metamyelocytes # (Man) 0.88 H (0) k/uL Myelocytes # (Manual) 0.29 H (0) k/uL Nucleated RBCs 0 (0-0) /100 WBC Manual Slide Review Performed Polychromasia Present Hypochromasia Marked Anisocytosis (manual) Present Macrocytosis Marked A PT 10.5 (10.0-12.5) sec INR 0.9 (<1.2) APTT 23.2 (22.0-30.0) sec Sample Site ABG pH (7.35-7.45) ABG pCO2 (35-45) mmHg ABG pO2 (83-108) mmHg ABG O2 Saturation (94-97) % Az Test FiO2 % Sodium (137-145) mmol/L Potassium (3.5-5.1) mmol/L Chloride (98-107) mmol/L Carbon Dioxide (22-30) mmol/L Anion Gap mmol/L BUN (9-20) mg/dL Creatinine (0.66-1.25) mg/dL Est GFR (CKD-EPI)AfAm (>60 ml/min/1.73 sqM) Est GFR (CKD-EPI)NonAf (>60 ml/min/1.73 sqM) Glucose (74-99) mg/dL POC Glucose (mg/dL) >600 H* (70-110) mg/dL POC Glu Constitutional Law Professor ID Marcell Tolbert Calcium (8.4-10.2) mg/dL Total Bilirubin (0.2-1.3) mg/dL AST (17-59) U/L ALT (4-49) U/L Alkaline Phosphatase (38-126) U/L Creatine Kinase (55-170) U/L Troponin I (0.000-0.034) ng/mL Total Protein (6.3-8.2) g/dL Albumin (3.5-5.0) g/dL Serum Alcohol mg/dL Acetone, Qual (Negative) 04/03/24 04/03/24 04/03/24 Range/Units 20:31 20:31 21:55 WBC (3.8-10.6) k/uL RBC (4.30-5.90) m/uL Hgb (13.0-17.5) gm/dL Hct (39.0-53.0) % MCV (80.0-100.0) fL MCH (25.0-35.0) pg MCHC (31.0-37.0) g/dL RDW (11.5-15.5) % Plt Count (150-450) k/uL MPV Neutrophils % (Manual) % Band Neuts % (Manual) % Lymphocytes % (Manual) % Monocytes % (Manual) % Eosinophils % (Manual) % Metamyelocytes % % Myelocytes % % Neutrophils # (Manual) (1.3-7.7) k/uL Lymphocytes # (Manual) (1.0-4.8) k/uL Monocytes # (Manual) (0-1.0) k/uL Eosinophils # (Manual) (0-0.7) k/uL Metamyelocytes # (Man) (0) k/uL Myelocytes # (Manual) (0) k/uL Nucleated RBCs (0-0) /100 WBC Manual Slide Review Polychromasia Hypochromasia Anisocytosis (manual) Macrocytosis PT (10.0-12.5) sec INR (<1.2) APTT (22.0-30.0) sec Sample Site ABG pH (7.35-7.45) ABG pCO2 (35-45) mmHg ABG pO2 (83-108) mmHg ABG O2 Saturation (94-97) % Az Test FiO2 % Sodium 138 (137-145) mmol/L Potassium 5.9 H (3.5-5.1) mmol/L Chloride 100 (98-107) mmol/L Carbon Dioxide <5 L* (22-30) mmol/L Anion Gap mmol/L BUN 33 H (9-20) mg/dL Creatinine 1.41 H (0.66-1.25) mg/dL Est GFR (CKD-EPI)AfAm 62 (>60 ml/min/1.73 sqM) Est GFR (CKD-EPI)NonAf 53 (>60 ml/min/1.73 sqM) Glucose 1119 H* (74-99) mg/dL POC Glucose (mg/dL) (70-110) mg/dL POC Glu Constitutional Law Professor ID Calcium 9.6 (8.4-10.2) mg/dL Total Bilirubin 0.4 (0.2-1.3) mg/dL AST 200 H (17-59) U/L ALT 492 H (4-49) U/L Alkaline Phosphatase 528 H (38-126) U/L Creatine Kinase 131 (55-170) U/L Troponin I <0.012 (0.000-0.034) ng/mL Total Protein 5.8 L (6.3-8.2) g/dL Albumin 3.9 (3.5-5.0) g/dL Serum Alcohol <10 mg/dL Acetone, Qual Positive (Negative) 04/03/24 04/03/24 Range/Units 22:10 23:09 WBC (3.8-10.6) k/uL RBC (4.30-5.90) m/uL Hgb (13.0-17.5) gm/dL Hct (39.0-53.0) % MCV (80.0-100.0) fL MCH (25.0-35.0) pg MCHC (31.0-37.0) g/dL RDW (11.5-15.5) % Plt Count (150-450) k/uL MPV Neutrophils % (Manual) % Band Neuts % (Manual) % Lymphocytes % (Manual) % Monocytes % (Manual) % Eosinophils % (Manual) % Metamyelocytes % % Myelocytes % % Neutrophils # (Manual) (1.3-7.7) k/uL Lymphocytes # (Manual) (1.0-4.8) k/uL Monocytes # (Manual) (0-1.0) k/uL Eosinophils # (Manual) (0-0.7) k/uL Metamyelocytes # (Man) (0) k/uL Myelocytes # (Manual) (0) k/uL Nucleated RBCs (0-0) /100 WBC Manual Slide Review Polychromasia Hypochromasia Anisocytosis (manual) Macrocytosis PT (10.0-12.5) sec INR (<1.2) APTT (22.0-30.0) sec Sample Site Left Radial ABG pH 6.89 L* (7.35-7.45) ABG pCO2 <15 L* (35-45) mmHg ABG pO2 151 H (83-108) mmHg ABG O2 Saturation 98.5 H (94-97) % Az Test Yes FiO2 21 % Sodium (137-145) mmol/L Potassium (3.5-5.1) mmol/L Chloride (98-107) mmol/L Carbon Dioxide (22-30) mmol/L Anion Gap mmol/L BUN (9-20) mg/dL Creatinine (0.66-1.25) mg/dL Est GFR (CKD-EPI)AfAm (>60 ml/min/1.73 sqM) Est GFR (CKD-EPI)NonAf (>60 ml/min/1.73 sqM) Glucose (74-99) mg/dL POC Glucose (mg/dL) >600 H* (70-110) mg/dL POC Glu Constitutional Law Professor ID Marcell Tolbert Calcium (8.4-10.2) mg/dL Total Bilirubin (0.2-1.3) mg/dL AST (17-59) U/L ALT (4-49) U/L Alkaline Phosphatase (38-126) U/L Creatine Kinase (55-170) U/L Troponin I (0.000-0.034) ng/mL Total Protein (6.3-8.2) g/dL Albumin (3.5-5.0) g/dL Serum Alcohol mg/dL Acetone, Qual (Negative) Disposition Clinical Impression: Diabetic ketoacidosis, Acute encephalopathy, Acidosis, metabolic, Dehydration Disposition: ADMITTED IP TO THIS [facility] Condition: Serious Is patient prescribed a controlled substance at d/c from ED?: No Time of Disposition: 23:50 Decision to Admit Reason: Admit from EC Decision Date: 04/03/24 Decision Time: 23:50
[2024-04-03] MEDS ORDERED: Potassium Replacement Protocol 1 EACH MISC MISCELLANE PRN (23:50)
[2024-04-03] MEDS ORDERED: NALOXONE 0.4 MG/ML 1 ML VIAL IV PRN (23:50)
[2024-04-03] MEDS ORDERED: Magnesium Replacement Protocol 1 EACH MISC MISCELLANE PRN (23:50)
[2024-04-03] MEDS: SODIUM CHLORIDE 0.9% 1,000 ML IV SCH (23:57)
[2024-04-04 00:36] LABS: Glucose,Whole Blood >600 mg/dL (70-110)
[2024-04-04 00:44] LABS: African American GFR (CKD) 82 (>60 ml/min/1.73 sqM); Blood Urea Nitrogen 33 mg/dL (9-20); Chloride 108 mmol/L (98-107); Non-African American GFR(CKD) 71 (>60 ml/min/1.73 sqM); Sodium 145 mmol/L (137-145)
[2024-04-04 00:59] LABS: Carbon Dioxide <5 mmol/L (22-30)
[2024-04-04 01:00] LABS: Glucose 1008 mg/dL (74-99)
[2024-04-04 01:01] LABS: Potassium 5.3 mmol/L (3.5-5.1)
[2024-04-04 01:19] LABS: Glucose,Whole Blood >600 mg/dL (70-110)
[2024-04-04 01:32] LABS: Appearance,Urine Clear (Clear); Bacteria,Urine Occasional /hpf; Bilirubin,Urine Negative (Negative); Blood,Urine Moderate (Negative); Color,Urine Colorless; Glucose,Urine (UA) 4+ (Negative); Hyaline Casts,Urine 15 /lpf (0-2); Leukocyte Esterase,Urine Negative (Negative); Mucus,Urine Rare /hpf; Nitrite,Urine Negative (Negative); Protein,Urine Trace (Negative); RBC,Urine 8 /hpf (0-5); Specific Gravity,Urine 1.021 (1.001-1.035); Urobilinogen,Urine <2.0 mg/dL (<2.0); WBC,Urine 3 /hpf (0-5)
[2024-04-04 01:36] LABS: Amphetamine Screen,Urine Not Detected (NotDetected); Barbiturate Screen,Urine Not Detected (NotDetected); Benzodiazepines Screen,Urine Not Detected (NotDetected); Cocaine Screen,Urine Not Detected (NotDetected); Methadone Screen, Urine Not Detected (NotDetected); Opiate Screen,Urine Not Detected (NotDetected); Oxycodone Screen, Urine Not Detected (NotDetected); Phencyclidine Screen,Urine Not Detected (NotDetected); Tricyclic Antidepressant,Urine Not Detected (NotDetected); Urn Cannabinoid Scrn Not Detected (NotDetected)
--- NOTE | 2024-04-04 02:11 | P.CNPUL ---
History of Present Illness Consult date: 04/04/24 Requesting physician: Lu Rinaldi Reason for consult: other (DKA; ICU management) Chief complaint: Altered mental status History of present illness: Patient is a 63-year-old white male with known past medical history significant for type 1 diabetes mellitus, hypertension, hyperlipidemia, CAD with previous stent, COPD, and former tobacco smoker. Yesterday, patient was found on the ground and confused, reportedly by his mother. Last known well was 90 minutes prior to this. He last gave himself insulin the day prior. He is an overall poor historian. No family currently present. According to the ER record, EMS was called, and on their arrival glucose was high and unreadable. He was brought to the emergency department for evaluation. A CT of the head and C- spine was ordered as we do not know if the patient hit his head, however, no signs of obvious trauma. Results did not show any acute intracranial process or evidence of cervical spine fracture. He was found to be in a state of severe diabetic ketoacidosis. ABG show a PaO2 of 151, pCO2 of less than 15, pH of 6.89. Blood glucose was 1119 mg/dL on arrival. Serum bicarb less than 5, anion gap unmeasurable, and acetone positive. Patient was started on the DKA protocol. He was also given 2 A of sodium bicarb IV push. He has received 2 L of normal saline bolus, then started on normal saline which is currently infus ing at 200 MLS per hour. Blood sugar remains severely elevated greater than 600. Insulin has just been started. Most recent BMP: Sodium 145, potassium 5.3, chloride 108, serum bicarb still less than 5, anion gap still unmeasurable, glucose 1008. AST 200, ALT 492, ALP 528. Alcohol level less than 10. Gallbladder ultrasound showed gallstones without evidence of acute cholecystitis. Heterogeneous hyperechoic appearance of the liver consistent with fatty infiltrative hepatocellular disease. Urine toxicology screen was essentially negative. CBC: WBC count 29.4, hemoglobin 12.5, hematocrit 46, platelets 327. No obvious infectious process identified. On my evaluation, patient is still in the emergency department, room 4. Patient is currently lying in bed on his side, still lethargic, occasionally answers questions appropriately, but is overall a poor historian. Denies any infectious symptoms. Afebrile. Chest x-ray does not show any acute cardiopulmonary process. No focal infiltrates or evidence of pneumonia. He is going to be admitted to the intensive care unit once bed available. Review of Systems ROS unobtainable: due to mental status Past Medical History Past Medical History: COPD, Diabetes Mellitus, Hyperlipidemia, Hypertension, Osteoarthritis (OA), Vascular Disorder Additional Past Medical History / Comment(s): TENDONITIS RT ELBOW, "Cyst behind rt eye", right leg & foot pain- tx. " bad Teeth". PORRAS History of Any Multi-Drug Resistant Organisms: None Reported Past Surgical History: Orthopedic Surgery Additional Past Surgical History / Comment(s): testicular surgery, reconstruc tive surgery on left ring finger, rt shoulder rotator cuff, recent aortogram Past Anesthesia/Blood Transfusion Reactions: No Reported Reaction Past Psychological History: Anxiety Smoking Status: Former smoker Past Alcohol Use History: Occasional Past Drug Use History: Marijuana - Past Family History Mother Family Medical History: Cancer Additional Family Medical History / Comment(s): LUNG CANCAR Medications and Allergies Home Medications Medication Instructions Recorded Confirmed Type ALPRAZolam [Xanax] 0.5 mg PO TID PRN 12/31/21 01/14/24 History Aspirin [Adult Low Dose Aspirin EC] 81 mg PO DAILY 12/31/21 01/14/24 History Spironolactone 25 mg PO DAILY 09/12/23 01/14/24 History lisinopriL 2.5 mg PO DAILY 09/12/23 01/14/24 History Clopidogrel [Plavix] 75 mg PO DAILY 12/14/23 01/14/24 History Insulin Aspart (Niacinamide) See Protocol SQ AC-TID 12/14/23 01/14/24 History [Fiasp 100 Unit/ml Vial] Metoprolol Succinate [Toprol XL] 50 mg PO DAILY 12/14/23 01/14/24 History Fluticasone/Umeclidin/Vilanter 1 puff INHALATION RT-DAILY 01/14/24 01/14/24 History [Trelegy Ellipta 200-62.5-25] Insulin Degludec [Tresiba] 20 units SQ DAILY #1 each 01/15/24 Rx Psyllium Husk 100% [Metamucil 6 gm PO DAILY #30 packet 01/15/24 Rx Packet] Allergies Allergy/AdvReac Type Severity Reaction Status Date / Time No Known Allergies Allergy Verified 04/03/24 20:38 Physical Exam Vitals: Vital Signs Temp Pulse Resp BP Pulse Ox 04/04/24 01:18 101 H 19 105/55 99 04/04/24 01:17 97.6 F 112 H 19 115/64 100 04/04/24 00:36 105 H 19 104/55 99 04/04/24 00:00 104 H 19 103/72 100 04/03/24 22:43 99 18 108/55 99 04/03/24 21:58 99 20 104/54 99 04/03/24 20:34 98.8 F 101 H 20 96/44 98 Intake and Output 04/03/24 04/03/24 04/04/24 14:59 22:59 06:59 Intake Total 203.704 Output Total 380 Balance -176.296 Intake: Intake, IV Titration 203.704 Amount Insulin Regular 100 unit 3.704 In Sodium Chloride 0.9% 100 ml @ 0.1 UNITS/KG/HR 4.536 mls/hr IV .[id number] ROCHELLE Rx#:[id number] Sodium Chloride 0.9% 1, 200 000 ml @ 200 mls/hr IV . Q5H ROCHELLE Rx#:[id number] Output: Urine 380 Other: Weight 44.906 kg GENERAL EXAM: Lethargic, frail 63-year-old white male, laying on his right lateral side, comfortable in no apparent distress. HEAD: Normocephalic and atraumatic EYES: Normal reaction of pupils, equal size. NOSE: Clear with pink turbinates. THROAT: No erythema or exudates. Dry mucous membranes. NECK: No masses, no JVD. CHEST: No chest wall deformity. LUNGS: Equal air entry with no crackles, wheeze, rhonchi or dullness. On room air. Nontachypneic. No conversational dyspnea or accessory muscle use.. CVS: S1 and S2 normal with no audible murmur, regular rhythm. No extra heart sounds. Tachycardic heart rate 104 bpm ABDOMEN: Abdomen is flat, bowel sounds are active, no hepatosplenomegaly, no guarding or rigidity. SPINE: No scoliosis or deformity SKIN: No rashes CENTRAL NERVOUS SYSTEM: Lethargic thoughts will respond to verbal stimuli, orien jeremias to self and place only, no focal deficits, tone is normal in all 4 extremities. EXTREMITIES: There is no peripheral edema, clubbing, or cyanosis. Peripheral pulses are intact. Results - Laboratory Findings CBC and BMP: 04/03/24 20:31 04/04/24 00:12 ABG ABG pH 6.89 (7.35-7.45) L* 04/03/24 22:10 ABG pCO2 <15 mmHg (35-45) L* 04/03/24 22:10 ABG pO2 151 mmHg (83-108) H 04/03/24 22:10 ABG O2 Saturation 98.5 % (94-97) H 04/03/24 22:10 PT/INR, D-dimer PT 10.5 sec (10.0-12.5) 04/03/24 20:31 INR 0.9 (<1.2) 04/03/24 20:31 Abnormal lab findings: Abnormal Labs 04/03/24 04/03/24 04/03/24 20:31 20:31 20:31 WBC 29.4 H RBC 3.77 L Hgb 12.5 L MCV 122.2 H MCHC 27.1 L Neutrophils # (Manual) 22.30 H Monocytes # (Manual) 1.76 H Metamyelocytes # (Man) 0.88 H Myelocytes # (Manual) 0.29 H Macrocytosis Marked A ABG pH ABG pCO2 ABG pO2 ABG O2 Saturation Potassium 5.9 H Chloride Carbon Dioxide <5 L* BUN 33 H Creatinine 1.41 H Glucose 1119 H* POC Glucose (mg/dL) >600 H* Phosphorus AST 200 H ALT 492 H Alkaline Phosphatase 528 H Total Protein 5.8 L 04/03/24 04/03/24 04/04/24 22:10 23:09 00:12 WBC RBC Hgb MCV MCHC Neutrophils # (Manual) Monocytes # (Manual) Metamyelocytes # (Man) Myelocytes # (Manual) Macrocytosis ABG pH 6.89 L* ABG pCO2 <15 L* ABG pO2 151 H ABG O2 Saturation 98.5 H Potassium Chloride Carbon Dioxide BUN Creatinine Glucose POC Glucose (mg/dL) >600 H* Phosphorus 10.5 H* AST ALT Alkaline Phosphatase Total Protein 04/04/24 04/04/24 04/04/24 00:12 00:34 01:16 WBC RBC Hgb MCV MCHC Neutrophils # (Manual) Monocytes # (Manual) Metamyelocytes # (Man) Myelocytes # (Manual) Macrocytosis ABG pH ABG pCO2 ABG pO2 ABG O2 Saturation Potassium 5.3 H Chloride 108 H Carbon Dioxide <5 L* BUN 33 H Creatinine Glucose 1008 H* POC Glucose (mg/dL) >600 H* >600 H* Phosphorus AST ALT Alkaline Phosphatase Total Protein - Diagnostic Findings Chest x-ray: image reviewed Assessment and Plan Assessment: Acute diabetic ketoacidosis, started on DKA protocol, and being admitted to the intensive care unit. Severe anion gap metabolic acidosis, secondary to above Altered mental status, likely secondary to acute metabolic encephalopathy and DKA, CT of the brain and C-spine did not show any acute intracranial process or cervical spine fracture or subluxation Acute leukocytosis, possibly reactive to DKA Hyperkalemia, improved Acute kidney injury, secondary to severe dehydration Mild transaminitis, Gallbladder ultrasound showed gallstones without evidence of acute cholecystitis. Heterogeneous hyperechoic appearance of the liver consistent with fatty infiltrative hepatocellular disease. Chronic obstructive pulmonary disease, stable History of hypertension History of hyperlipidemia History of type 1 diabetes mellitus History of coronary artery disease with previous PCI/stent to the diagonal branch Plan: Patient's medications, labs, imaging reviewed Patient is going to be admitted to the intensive care unit for the DKA protocol Insulin infusion per protocol Normal saline is infusing at 200 MLS per hour, which will be transitioned to D5W/0.45% saline/with 20 mEq of potassium at 150 mL/h, once blood glucose less than 250 mg/dL. Monitor electrolytes every 4 hours and replace per protocol We will continue to follow, and further recommendations are forthcoming I have personally seen and examined the patient, performed the documentation and the assessment and plan as written. Number of minutes spent on the visit:20 Time with Patient: Greater than 30
[2024-04-04 02:14] LABS: Glucose,Whole Blood >600 mg/dL (70-110)
[2024-04-04 02:26] LABS: Ketones,Urine 3+ (Negative)
[2024-04-04 03:24] LABS: Glucose,Whole Blood >600 mg/dL (70-110)
[2024-04-04 04:22] LABS: Glucose,Whole Blood 557 mg/dL (70-110)
[2024-04-04 04:57] LABS: African American GFR (CKD) >90 (>60 ml/min/1.73 sqM); Anion Gap 29 mmol/L; Blood Urea Nitrogen 32 mg/dL (9-20); Calcium 9.1 mg/dL (8.4-10.2); Chloride 117 mmol/L (98-107); Non-African American GFR(CKD) >90 (>60 ml/min/1.73 sqM); Potassium 3.7 mmol/L (3.5-5.1); Sodium 152 mmol/L (137-145)
[2024-04-04 05:10] LABS: Carbon Dioxide 6 mmol/L (22-30); Glucose 646 mg/dL (74-99)
[2024-04-04 05:22] LABS: HCT 38.9 % (39.0-53.0); HGB 11.5 gm/dL (13.0-17.5); Hypochromasia Marked; MCHC 29.5 g/dL (31.0-37.0); Macrocytosis Marked; Mean Platelet Volume 8.6; Platelet Count 287 k/uL (150-450); RBC 3.57 m/uL (4.30-5.90); RDW 13.1 % (11.5-15.5); WBC 28.6 k/uL (3.8-10.6)
[2024-04-04 05:24] LABS: MCV 108.7 fL (80.0-100.0)
[2024-04-04 05:26] LABS: Glucose,Whole Blood 516 mg/dL (70-110)
[2024-04-04 06:08] LABS: Band Neutrophils % 17 %; Eosinophils # (M) 0.29 k/uL (0-0.7); Lymphocytes # (M) 3.15 k/uL (1.0-4.8); Metamyelocytes # (M) 0.57 k/uL (0); Metamyelocytes % 2 %; Myelocytes # (M) 0.57 k/uL (0); Myelocytes % 2 %; Neutrophils % (M) 62 %; Nucleated Red Blood Cells 0 /100 WBC (0-0); Total Cells Counted 200
[2024-04-04 06:09] LABS: Polychromasia Present
[2024-04-04 06:17] LABS: Glucose,Whole Blood 492 mg/dL (70-110)
[2024-04-04 07:04] LABS: Glucose,Whole Blood 416 mg/dL (70-110)
[2024-04-04 07:53] LABS: Glucose,Whole Blood 332 mg/dL (70-110)
[2024-04-04] MEDS: D5-0.45% NACL WITH KCL 20MEQ/L 1,000 ML IV SCH (08:50)
[2024-04-04 09:18] LABS: Glucose,Whole Blood 298 mg/dL (70-110)
[2024-04-04] MEDS: POTASSIUM CHLORIDE ER 20 MEQ TAB.ER PO SCH (09:22)
[2024-04-04] MEDS: PANTOPRAZOLE 40 MG/10 ML VIAL IVP SCH (09:38)
[2024-04-04] MEDS: POTASSIUM CHLORIDE 10 MEQ in WATER FOR INJECTION 1 100ML.BAG IVPB SCH ×2 (09:38→16:39)
[2024-04-04 10:16] LABS: African American GFR (CKD) >90 (>60 ml/min/1.73 sqM); Anion Gap 11 mmol/L; Blood Urea Nitrogen 28 mg/dL (9-20); Calcium 9.1 mg/dL (8.4-10.2); Carbon Dioxide 20 mmol/L (22-30); Chloride 125 mmol/L (98-107); Glucose 282 mg/dL (74-99); Non-African American GFR(CKD) >90 (>60 ml/min/1.73 sqM); Potassium 3.3 mmol/L (3.5-5.1); Sodium 156 mmol/L (137-145)
[2024-04-04 10:24] LABS: Glucose,Whole Blood 286 mg/dL (70-110)
[2024-04-04 10:57] LABS: Glucose,Whole Blood 283 mg/dL (70-110)
[2024-04-04 11:59] VITALS: BMI 17.4
[2024-04-04 12:29] LABS: Glucose,Whole Blood 257 mg/dL (70-110)
[2024-04-04 13:21] LABS: Glucose,Whole Blood 227 mg/dL (70-110)
[2024-04-04 14:12] LABS: Glucose,Whole Blood 170 mg/dL (70-110)
[2024-04-04 14:23] LABS: African American GFR (CKD) >90 (>60 ml/min/1.73 sqM); Anion Gap 5 mmol/L; Blood Urea Nitrogen 26 mg/dL (9-20); Calcium 8.9 mg/dL (8.4-10.2); Carbon Dioxide 23 mmol/L (22-30); Chloride 127 mmol/L (98-107); Glucose 198 mg/dL (74-99); Non-African American GFR(CKD) >90 (>60 ml/min/1.73 sqM); Potassium 3.6 mmol/L (3.5-5.1); Sodium 155 mmol/L (137-145)
[2024-04-04 15:17] LABS: Glucose,Whole Blood 152 mg/dL (70-110)
[2024-04-04 16:03] LABS: Glucose,Whole Blood 133 mg/dL (70-110)
[2024-04-04 17:00] LABS: Glucose,Whole Blood 107 mg/dL (70-110)
[2024-04-04 18:07] LABS: Glucose,Whole Blood 102 mg/dL (70-110)
[2024-04-04 18:41] LABS: African American GFR (CKD) >90 (>60 ml/min/1.73 sqM); Anion Gap 4 mmol/L; Blood Urea Nitrogen 25 mg/dL (9-20); Calcium 9.1 mg/dL (8.4-10.2); Carbon Dioxide 23 mmol/L (22-30); Chloride 127 mmol/L (98-107); Glucose 95 mg/dL (74-99); Non-African American GFR(CKD) >90 (>60 ml/min/1.73 sqM); Potassium 3.8 mmol/L (3.5-5.1); Sodium 154 mmol/L (137-145)
[2024-04-04 19:01] LABS: Glucose,Whole Blood 101 mg/dL (70-110)
[2024-04-04] MEDS ORDERED: DEXTROSE 50% SYRINGE 50 ML IVP PRN ×2 (19:11)
[2024-04-04 20:48] LABS: Glucose,Whole Blood 152 mg/dL (70-110)
[2024-04-04] MEDS: INSULIN ASPART (NovoLOG) 100 UNIT/ML VIAL SQ SCH (21:57)
[2024-04-05 04:37] LABS: Basophils % (A) 0 %; Eosinophils % (A) 0 %; HCT 32.3 % (39.0-53.0); HGB 10.1 gm/dL (13.0-17.5); Lymphocytes # (A) 1.5 k/uL (1.0-4.8); Lymphocytes % (A) 9 %; MCH 32.6 pg (25.0-35.0); MCHC 31.1 g/dL (31.0-37.0); MCV 104.6 fL (80.0-100.0); Macrocytosis Slight; Monocytes % (A) 6 %; Neutrophils # (A) 13.8 k/uL (1.3-7.7); Neutrophils % (A) 82 %; Platelet Count 226 k/uL (150-450); RBC 3.09 m/uL (4.30-5.90); RDW 13.6 % (11.5-15.5); WBC 16.7 k/uL (3.8-10.6)
[2024-04-05 04:51] LABS: African American GFR (CKD) >90 (>60 ml/min/1.73 sqM); Anion Gap 11 mmol/L; Blood Urea Nitrogen 21 mg/dL (9-20); Carbon Dioxide 16 mmol/L (22-30); Chloride 118 mmol/L (98-107); Glucose 343 mg/dL (74-99); Non-African American GFR(CKD) >90 (>60 ml/min/1.73 sqM); Potassium 4.2 mmol/L (3.5-5.1); Sodium 145 mmol/L (137-145)
[2024-04-05] MEDS: INSULIN DETEMIR (LEVEMIR) 100 UNIT/ML SYR SQ SCH (05:31)
[2024-04-05] MEDS: INSULIN ASPART (NovoLOG) 100 UNIT/ML VIAL SQ ONE (05:31)
[2024-04-05 06:54] LABS: Glucose,Whole Blood 292 mg/dL (70-110)
[2024-04-05 07:10] LABS: African American GFR (CKD) >90 (>60 ml/min/1.73 sqM); Anion Gap 13 mmol/L; Blood Urea Nitrogen 21 mg/dL (9-20); Calcium 9.2 mg/dL (8.4-10.2); Carbon Dioxide 13 mmol/L (22-30); Chloride 118 mmol/L (98-107); Glucose 358 mg/dL (74-99); Non-African American GFR(CKD) >90 (>60 ml/min/1.73 sqM); Potassium 3.7 mmol/L (3.5-5.1); Sodium 144 mmol/L (137-145)
[2024-04-05 11:04] LABS: Glucose,Whole Blood 163 mg/dL (70-110)
[2024-04-05] MEDS: CLOPIDOGREL 75 MG TAB PO SCH (11:54)
[2024-04-05] MEDS: METOPROLOL SUCCINATE (ER) 50 MG TAB.ER.24H PO SCH (11:54)
[2024-04-05] MEDS: ATORVASTATIN 80 MG TAB PO SCH (11:54)
[2024-04-05] MEDS: SODIUM CHLORIDE 0.9% 1,000 ML IV SCH (11:55)
--- NOTE | 2024-04-05 13:22 | P.PN ---
Subjective Progress Note Date: 04/05/24 Patient is a 63-year-old white male with known past medical history significant for type 1 diabetes mellitus, hypertension, hyperlipidemia, CAD with previous stent, COPD, and former tobacco smoker. Yesterday, patient was found on the ground and confused, reportedly by his mother. Last known well was 90 minutes prior to this. He last gave himself insulin the day prior. He is an overall poor historian. No family currently present. According to the ER record, EMS was called, and on their arrival glucose was high and unreadable. He was brought to the emergency department for evaluation. A CT of the head and C- spine was ordered as we do not know if the patient hit his head, however, no signs of obvious trauma. Results did not show any acute intracranial process or evidence of cervical spine fracture. He was found to be in a state of severe diabetic ketoacidosis. ABG show a PaO2 of 151, pCO2 of less than 15, pH of 6.89. Blood glucose was 1119 mg/dL on arrival. Serum bicarb less than 5, anion gap unmeasurable, and acetone positive. Patient was started on the DKA protocol. He was also given 2 A of sodium bicarb IV push. He has received 2 L of normal saline bolus, then started on normal saline which is currently infusing at 200 MLS per hour. Blood sugar remains severely elevated greater than 600. Insulin has just been started. Most recent BMP: Sodium 145, potassium 5.3, chloride 108, serum bicarb still less than 5, anion gap still unmeasurable, glucose 1008. AST 200, ALT 492, ALP 528. Alcohol level less than 10. Gallbladder ultrasound showed gallstones without evidence of acute cholecystitis. Heterogeneous hyperechoic appearance of the liver consistent with fatty infiltrative hepatocellular disease. Urine toxicology screen was essentially negative. CBC: WBC count 29.4, hemoglobin 12.5, hematocrit 46, platelets 327. No obvious infectious process identified. On my evaluation, patient is still in the emergency department, room 4. Patient is currently lying in bed on his side, still lethargic, occasionally answers questions appropriately, but is overall a poor historian. Denies any infectious symptoms. Afebrile. Chest x-ray does not show any acute cardiopulmonary process. No focal infiltrates or evidence of pneumonia. He is going to be admitted to the intensive care unit once bed available. The patient was seen today April 05, 2024 in follow-up on the regular medical floor. He is currently resting comfortably in bed. Feeling better. Mainta ining O2 saturations in the 90s on room air. He is afebrile. Hemodynamically stable. No IV fluids. White count 16.7. Hemoglobin 10.1. Platelets 226. Sodium 144. Potassium 3.7. Bicarb 13. Anion gap 13. BUN 21. Creatinine 0.41. Glucose 358. He is currently on Levemir and NovoLog sliding scale. Objective - Vital Signs Vital signs: Vital Signs Temp 98.1 F 04/05/24 13:07 Pulse 90 04/05/24 13:07 Resp 16 04/05/24 13:07 BP 118/65 04/05/24 13:07 Pulse Ox 99 04/05/24 13:07 FiO2 Intake & Output 04/04/24 04/05/24 04/05/24 18:59 06:59 18:59 Intake Total 2399.370 851.132 Output Total 816 800 Balance 1583.370 51.132 Weight 47.4 kg Intake: IV 250 D5-0.45% NaCl with KCl 250 20Meq/l 1,000 ml @ 50 mls /hr IV .Q20H [facility] Rx#: [id number] Intake, IV Titration 2399.370 201.132 Amount D5-0.45% NaCl with KCl 1500 200 20Meq/l 1,000 ml @ 50 mls /hr IV .Q20H [facility] Rx#: [id number] Insulin Regular 100 unit 99.370 1.132 In Sodium Chloride 0.9% 100 ml @ 0.1 UNITS/KG/HR 4.536 mls/hr IV .[id number] [facility] Rx#:[id number] Potassium Chloride 10 meq 400 In Water For Injection 1 100ml.bag @ 100 mls/hr IVPB Q1H [facility] Rx#: [id number] Sodium Chloride 0.9% 1, 400 000 ml @ 200 mls/hr IV . Q5H [facility] Rx#:[id number] Oral 400 Output: Urine 816 800 Other: Voiding Method Indwelling Catheter Indwelling Catheter # Bowel Movements 0 - Exam GENERAL EXAM: Awake, alert, cachectic 63-year-old male, sitting up in bed, on room air, comfortable in no apparent distress. HEAD: Normocephalic and atraumatic EYES: Normal reaction of pupils, equal size. NOSE: Clear with pink turbinates. THROAT: No erythema or exudates. Dry mucous membranes. NECK: No masses, no JVD. CHEST: No chest wall deformity. LUNGS: Equal air entry with no crackles, wheeze, rhonchi or dullness. No conversational dyspnea or accessory muscle use. CVS: S1 and S2 normal with no audible murmur, regular rhythm. No extra heart sounds. ABDOMEN: Abdomen is flat, bowel sounds are active, no hepatosplenomegaly, no guarding or rigidity. SPINE: No scoliosis or deformity SKIN: No rashes CENTRAL NERVOUS SYSTEM: Lethargic thoughts will respond to verbal stimuli, oriented to self and place only, no focal deficits, tone is normal in all 4 extremities. EXTREMITIES: There is no peripheral edema, clubbing, or cyanosis. Peripheral pulses are intact. - Labs CBC & Chem 7: 04/05/24 03:34 04/05/24 05:55 Labs: Abnormal Lab Results - Last 24 Hours (Table) 04/04/24 04/04/24 04/04/24 Range/Units 13:18 13:47 14:10 WBC (3.8-10.6) k/uL RBC (4.30-5.90) m/uL Hgb (13.0-17.5) gm/dL Hct (39.0-53.0) % MCV (80.0-100.0) fL Neutrophils # (1.3-7.7) k/uL Sodium 155 H (137-145) mmol/L Chloride 127 H (98-107) mmol/L Carbon Dioxide (22-30) mmol/L BUN 26 H (9-20) mg/dL Creatinine 0.45 L (0.66-1.25) mg/dL Glucose 198 H (74-99) mg/dL POC Glucose (mg/dL) 227 H 170 H (70-110) mg/dL 04/04/24 04/04/24 04/04/24 Range/Units 15:16 15:59 18:09 WBC (3.8-10.6) k/uL RBC (4.30-5.90) m/uL Hgb (13.0-17.5) gm/dL Hct (39.0-53.0) % MCV (80.0-100.0) fL Neutrophils # (1.3-7.7) k/uL Sodium 154 H (137-145) mmol/L Chloride 127 H (98-107) mmol/L Carbon Dioxide (22-30) mmol/L BUN 25 H (9-20) mg/dL Creatinine 0.37 L (0.66-1.25) mg/dL Glucose (74-99) mg/dL POC Glucose (mg/dL) 152 H 133 H (70-110) mg/dL 04/04/24 04/05/24 04/05/24 Range/Units 20:46 03:34 03:34 WBC 16.7 H (3.8-10.6) k/uL RBC 3.09 L (4.30-5.90) m/uL Hgb 10.1 L (13.0-17.5) gm/dL Hct 32.3 L (39.0-53.0) % MCV 104.6 H (80.0-100.0) fL Neutrophils # 13.8 H (1.3-7.7) k/uL Sodium (137-145) mmol/L Chloride 118 H (98-107) mmol/L Carbon Dioxide 16 L (22-30) mmol/L BUN 21 H (9-20) mg/dL Creatinine 0.41 L (0.66-1.25) mg/dL Glucose 343 H (74-99) mg/dL POC Glucose (mg/dL) 152 H (70-110) mg/dL 04/05/24 04/05/24 04/05/24 Range/Units 05:55 06:52 11:03 WBC (3.8-10.6) k/uL RBC (4.30-5.90) m/uL Hgb (13.0-17.5) gm/dL Hct (39.0-53.0) % MCV (80.0-100.0) fL Neutrophils # (1.3-7.7) k/uL Sodium (137-145) mmol/L Chloride 118 H (98-107) mmol/L Carbon Dioxide 13 L (22-30) mmol/L BUN 21 H (9-20) mg/dL Creatinine 0.40 L (0.66-1.25) mg/dL Glucose 358 H (74-99) mg/dL POC Glucose (mg/dL) 292 H 163 H (70-110) mg/dL Assessment and Plan Assessment: Acute diabetic ketoacidosis, started on DKA protocol, recovered. Severe anion gap metabolic acidosis, secondary to above recovered Altered mental status, likely secondary to acute metabolic encephalopathy and DKA, CT of the brain and C-spine did not show any acute intracranial process or cervical spine fracture or subluxation. Recovered and alert and oriented x 3 Acute leukocytosis, possibly reactive to DKA Hyperkalemia, improved Acute kidney injury, secondary to severe dehydration Mild transaminitis, Gallbladder ultrasound showed gallstones without evidence of acute cholecystitis. Heterogeneous hyperechoic appearance of the liver consistent with fatty infiltrative hepatocellular disease. Chronic obstructive pulmonary disease, stable History of hypertension History of hyperlipidemia History of type 1 diabetes mellitus History of coronary artery disease with previous PCI/stent to the [facility] h Plan: The patient was seen and evaluated Labs and medications reviewed Stable and on room air Continued on Levemir and NovoLog scale I have personally seen and examined the patient, performed the documentation and the assessment and plan as written. Number of minutes spent on the visit: 10.
[2024-04-05 16:09] LABS: Glucose,Whole Blood 88 mg/dL (70-110)
[2024-04-05 19:56] LABS: Glucose,Whole Blood 162 mg/dL (70-110)
--- NOTE | 2024-04-06 01:43 | PN ---
PROGRESS NOTE SUBJECTIVE: The patient came in severely dehydrated to the hospital with DKA with sugars over 1000. He has never had this before. He still looks weak and fatigued. Breathing treatments were ordered. He had COPD real bad. He has been smoking for multiple years. We are checking for any kind of infection. White count is 14.5. He is more alert today giving appropriate answers, still good rehydration but still appears dry. He says he is dehydrated. OBJECTIVE: GENERAL: He is alert and oriented x3. PSYCH: Fair mood and affect. NEUROLOGIC: Alert and oriented x3. CARDIOVASCULAR: S1, S2. LUNGS: Scattered wheeze and rhonchi. PLAN: Continue current treatment. Discussed with him probably what cause these problems. We will monitor for signs of infection at this time. Cultures are pending. Prognosis is guarded. Please see further orders. MMODL / IJN: [id number] /
[2024-04-06 04:18] LABS: Appearance,Urine Clear (Clear); Bilirubin,Urine Negative (Negative); Blood,Urine Trace (Negative); Color,Urine Colorless; Glucose,Urine (UA) 2+ (Negative); Hyaline Casts,Urine 1 /lpf (0-2); Ketones,Urine Trace (Negative); Leukocyte Esterase,Urine Negative (Negative); Mucus,Urine Occasional /hpf; Nitrite,Urine Negative (Negative); PH, Urine 5.5 (5.0-8.0); Protein,Urine Negative (Negative); RBC,Urine 13 /hpf (0-5); Specific Gravity,Urine 1.013 (1.001-1.035); Squamous Epithelial Cell,Urine 1 /hpf (0-4); Urobilinogen,Urine <2.0 mg/dL (<2.0); WBC,Urine 1 /hpf (0-5)
[2024-04-06 05:54] LABS: Glucose,Whole Blood 74 mg/dL (70-110)
--- NOTE | 2024-04-06 09:03 | CT ---
EXAMINATION TYPE: CT chest wo con DATE OF EXAM: 04/06/2024 COMPARISON: 01/14/2024 HISTORY: 63-year-old male CAP, pain TECHNIQUE: Contiguous axial scanning of the chest without IV contrast. Coronal/sagittal reconstructio ns performed. CT DLP: 203.3mGycm. Automatic exposure control utilized for a dose reduction. FINDINGS: The heart is normal size without pericardial effusion. Given low density of the blood pool, correlate to exclude anemia. Extensive three-vessel coronary artery calcifications are present. Borderline ectasia ascending aorta 3.5 cm. Moderate atherosclerotic arch calcifications with conventi onal arch vessel branching anatomy. No thoracic lymphadenopathy by CT size criteria. Mild emphysematous change. Mild biapical pleural parenchymal scarring. Some mild septal lines in the lower lungs along with trace bilateral pleural effusions and strandy bibasilar atelectasis. Visualized upper abdomen shows fullness of the IVC and periportal edema along with trace perihepatic ascites. No osseous destructive process. IMPRESSION: 1. Correlate for fluid overload state given trace perihepatic ascites, periportal edema, and new smal l pleural effusions. Septal lines in the lower lungs could reflect mild pulmonary vascular congestion . 2. Note extensive three-vessel coronary artery calcifications. 3. Given low density of the blood pool, correlate to exclude anemia. 4. COPD with mild emphysema.
[2024-04-06] MEDS: IPRATROPIUM-ALBUTEROL 3 ML NEB INHALATION SCH (09:27)
[2024-04-06 11:45] LABS: Glucose,Whole Blood 249 mg/dL (70-110)
[2024-04-06] MEDS: ACETAMINOPHEN TAB 500 MG TAB PO PRN (16:53)
[2024-04-06 17:26] LABS: Basophils # (A) 0.02 X 10*3/uL (0.00-0.10); Basophils % (A) 0.2 %; Eosinophils # (A) 0.03 X 10*3/uL (0.04-0.35); Eosinophils % (A) 0.2 %; HCT 30.1 % (39.6-50.0); HGB 9.7 g/dL (13.0-17.0); Lymphocytes # (A) 2.17 X 10*3/uL (0.90-5.00); MCH 31.9 pg (27.0-32.0); MCHC 32.2 g/dL (32.0-37.0); Mean Platelet Volume 10.1 FL (9.5-12.2); Monocytes # (A) 0.71 X 10*3/uL (0.20-1.00); Monocytes % (A) 5.9 %; NRBC Per 100 WBC 0 X 10*3/uL (0.00-0.01); Neutrophils # (A) 9.04 X 10*3/uL (1.80-7.70); Platelet Count 159 X 10*3/uL (140-440); RBC 3.04 X 10*6/uL (4.40-5.60); RDW 13.8 % (11.5-14.5); WBC 12.06 X 10*3/uL (4.50-10.00)
[2024-04-06 17:39] LABS: Glucose,Whole Blood 363 mg/dL (70-110)
[2024-04-06] MEDS: AMPICILLIN-SULBACTAM 3 GM in SODIUM CHLORIDE 0.9% 100 ML IVPB SCH (17:44)
[2024-04-06 17:47] LABS: ALT 312 U/L (10-49); AST 97 U/L (14-35); Albumin 3.2 g/dL (3.8-4.9); Albumin/Globulin Ratio 1.88 Ratio (1.60-3.17); Alkaline Phosphatase 338 U/L (41-126); BUN/Creat Ratio 25.25 Ratio (12.00-20.00); Blood Urea Nitrogen 10.1 mg/dL (9.0-27.0); Carbon Dioxide 23.4 mmol/L (21.6-31.8); Chloride 108 mmol/L (96-109); Globulin 1.7 g/dL (1.6-3.3); Glucose 233 mg/dL (70-110); Potassium 3.8 mmol/L (3.5-5.5); Sodium 142 mmol/L (135-145); Total Bilirubin 0.3 mg/dL (0.3-1.2); Total Protein 4.9 g/dL (6.2-8.2)
[2024-04-06 21:22] LABS: Glucose,Whole Blood 325 mg/dL (70-110)
--- NOTE | 2024-04-06 22:38 | P.CONS ---
History of Present Illness - Reason for Consult Consult date: 04/06/24 Leukocytosis Requesting physician: Servando Whalen - Chief Complaint Weakness and unresponsive on admission - History of Present Illness Patient is a 63-year-old male past medical history significant for diabetes mellitus hypertension hyperlipidemia osteoarthritis COPD, presenting to the hospital 3 days ago for evaluation of mental status changes patient was fou nd down at home and apparently was noticed to have elevated blood sugar as the patient did not took his insulin on presentation to the hospital patient was afebrile and did not have any fever during this hospital stay patient was tachycardic subsequently resolved but not hypotensive or hypoxic patient did have a white count of 29,000 admission which is down to 12,000 today infectious disease was consulted today because of elevated white count after the patient in the hospital for 3 days patient did not have any blood cultures done and not received any antibiotics he did have elevated creatinine on admission which is subsequently normalized liver isms are mildly elevated urine has been negative urine drug screen was negative serum acetone was positive serum alcohol was less than 10 patient did have a chest x-ray no acute cardiopulmonary disease process patient did have a gallbladder ultrasound gallstones without ultrasound evidence of acute cholecystitis CT of the chest did not show any pneumonia concerning for extensive three-vessel coronary artery calcification COPD with mild emphysema patient currently denies having any fever any chills denies having any headache or URI symptoms no chest pain or shortness with occasional cough no nausea vomiting no abdominal pain or diarrhea patient was noticed to have bad dentition on examination Review of Systems Positive point and negatives has been mentioned in the HPI, complete review of systems was performed and all other systems are negative Past Medical History Past Medical History: COPD, Diabetes Mellitus, Hyperlipidemia, Hypertension, Osteoarthritis (OA), Vascular Disorder Additional Past Medical History / Comment(s): TENDONITIS RT ELBOW, "Cyst behind rt eye", right leg & foot pain- tx. " bad Teeth". PORRAS History of Any Multi-Drug Resistant Organisms: None Reported Past Surgical History: Orthopedic Surgery Additional Past Surgical History / Comment(s): testicular surgery, reconstructive surgery on left ring finger, rt shoulder rotator cuff, recent aortogram Past Anesthesia/Blood Transfusion Reactions: No Reported Reaction Date of Last Stent Placement:: 2022 Past Psychological History: Anxiety Smoking Status: Former smoker Past Alcohol Use History: Occasional Past Drug Use History: Marijuana - Past Family History Mother Family Medical History: Cancer Additional Family Medical History / Comment(s): LUNG CANCAR Medications and Allergies Home Medications Medication Instructions Recorded Confirmed Type ALPRAZolam [Xanax] 0.5 mg PO TID PRN 12/31/21 04/04/24 History Aspirin [Adult Low Dose Aspirin EC] 81 mg PO DAILY 12/31/21 04/04/24 History Clopidogrel [Plavix] 75 mg PO DAILY 12/14/23 04/04/24 History Insulin Aspart (Niacinamide) See Protocol SQ AC-TID 12/14/23 04/04/24 History [Fiasp 100 Unit/ml Vial] Metoprolol Succinate [Toprol XL] 50 mg PO DAILY 12/14/23 04/04/24 History Fluticasone/Umeclidin/Vilanter 1 puff INHALATION RT-DAILY 01/14/24 04/04/24 History [Trelegy Ellipta 200-62.5-25] Atorvastatin [Lipitor] 80 mg PO DAILY 04/04/24 04/04/24 History Lactulose 10 gm PO TID 04/04/24 04/04/24 History Allergies Allergy/AdvReac Type Severity Reaction Status Date / Time No Known Allergies Allergy Verified 04/04/24 09:34 Physical Exam Vitals: Vital Signs Temp Pulse Pulse Resp BP BP Pulse Ox 04/06/24 16:25 82 04/06/24 16:14 84 04/06/24 15:14 98.6 F 96 16 112/71 97 04/06/24 12:40 80 04/06/24 12:30 82 04/06/24 09:40 84 04/06/24 09:27 82 98 04/06/24 07:50 98.9 F 83 16 115/69 95 04/06/24 02:00 98.2 F 86 118/64 98 04/05/24 20:00 98.9 F 84 127/61 100 Intake and Output 04/06/24 04/06/24 04/06/24 06:59 14:59 22:59 Output Total 775 300 Balance -775 -300 Output: Urine 775 300 Other: # Voids 2 Weight 47.4 kg GENERAL DESCRIPTION: Middle-aged male lying in bed, no distress. No tachypnea or accessory muscle of respiration use. HEENT: Shows Pallor , no scleral icterus. Oral mucous membrane is dry. Did have bad dentition NECK: Trachea central, no thyromegaly. LUNGS: Unlabored breathing. Clear to auscultation anteriorly. No wheeze or crackle. HEART: S1, S2, regular rate and rhythm. No loud murmur ABDOMEN: Soft, no tenderness , guarding or rigidity, no organomegaly EXTREMITIES: No edema of feet. SKIN: No rash, no masses palpable. NEUROLOGICAL: The patient is awake, alert, oriented x3, mood and affect normal. Results CBC & Chem 7: 04/06/24 09:53 04/06/24 09:53 Labs: Abnormal Lab Results - Last 24 Hours (Table) 04/05/24 04/06/24 04/06/24 Range/Units 19:54 03:32 11:42 POC Glucose (mg/dL) 162 H 249 H (70-110) mg/dL Urine Glucose (UA) 2+ H (Negative) Urine Ketones Trace H (Negative) Urine Blood Trace H (Negative) Urine RBC 13 H (0-5) /hpf Urine Mucus Occasional H (None) /hpf Assessment and Plan (1) Leukocytosis Current Visit: Yes Status: Acute Code(s): D72.829 - ELEVATED WHITE BLOOD CELL COUNT, UNSPECIFIED SNOMED Code(s): 814273936 Plan: 1patient presented to hospital with episode of weakness and unresponsiveness in this patient who did have diabetic ketoacidosis and elevated white count more likely related to hemoconcentration however then to acute infection as the patient did not have any fever during this hospital stay chest x-ray was negative urine was negative for an abdominal soft wound clean examination patient did have bad dentition may be contributing to some of this elevated white count 2-we will obtain blood cultures CRP and a procalcitonin 3-empirically add Unasyn and see clinical response We will follow on clinical condition and cultures to further adjust medication if needed Thank you for this consultation we will follow the patient along with you Dictation was produced using [employer] software. please excuse any grammatical, word or spelling errors. Time with Patient: Greater than 30
[2024-04-07] MEDS: ALPRAZolam 0.5 MG TAB PO PRN (01:06)
[2024-04-07 05:47] LABS: Glucose,Whole Blood 56 mg/dL (70-110)
[2024-04-07 06:29] LABS: Glucose,Whole Blood 81 mg/dL (70-110)
[2024-04-07 09:23] LABS: Basophils # (A) 0.03 X 10*3/uL (0.00-0.10); Basophils % (A) 0.3 %; Eosinophils # (A) 0.05 X 10*3/uL (0.04-0.35); Eosinophils % (A) 0.4 %; HCT 30.7 % (39.6-50.0); HGB 10.3 g/dL (13.0-17.0); Lymphocytes # (A) 3.19 X 10*3/uL (0.90-5.00); Lymphocytes % (A) 28.4 %; MCH 32.7 pg (27.0-32.0); MCHC 33.6 g/dL (32.0-37.0); MCV 97.5 FL (80.0-97.0); Mean Platelet Volume 9.8 FL (9.5-12.2); Monocytes # (A) 0.68 X 10*3/uL (0.20-1.00); Monocytes % (A) 6.1 %; NRBC Per 100 WBC 0 X 10*3/uL (0.00-0.01); Neutrophils # (A) 7.22 X 10*3/uL (1.80-7.70); Neutrophils % (A) 64.3 %; Platelet Count 156 X 10*3/uL (140-440); RBC 3.15 X 10*6/uL (4.40-5.60); RDW 13.2 % (11.5-14.5); WBC 11.23 X 10*3/uL (4.50-10.00)
[2024-04-07 09:56] LABS: ALT 264 U/L (10-49); AST 62 U/L (14-35); Albumin 3.3 g/dL (3.8-4.9); Albumin/Globulin Ratio 1.94 Ratio (1.60-3.17); Alkaline Phosphatase 342 U/L (41-126); Blood Urea Nitrogen 6.6 mg/dL (9.0-27.0); Calcium 8.7 mg/dL (8.7-10.3); Carbon Dioxide 25.9 mmol/L (21.6-31.8); Chloride 110 mmol/L (96-109); Globulin 1.7 g/dL (1.6-3.3); Glucose 57 mg/dL (70-110); Potassium 3.1 mmol/L (3.5-5.5); Sodium 145 mmol/L (135-145); Total Bilirubin 0.3 mg/dL (0.3-1.2)
--- NOTE | 2024-04-07 10:24 | PN ---
PROGRESS NOTE DATE OF SERVICE: 04/06/2024 SUBJECTIVE: He is more alert and oriented. Sugars are mid 100s to 200s. He wants know if he has pancreatic cancer. I discussed his CAT scan showing COPD and emphysema, nicotine cessation. OBJECTIVE: GENERAL: He is thin, cachectic. CARDIOVASCULAR: S1, S2. LUNGS: Clear. GI: Soft. PSYCH: Flat mood and affect. ASSESSMENT: Type 1 diabetes mellitus, malnutrition, severe dehydration, still improving. Encephalopathy improved. DKA improved. COPD emphysema. Continue breathing treatments. Check him up for pancreatic cancer. Will CAT scan his belly, do a CA 15- 3. Please see further orders. MMODL / IJN: [id number] /
[2024-04-07 11:28] LABS: Glucose,Whole Blood 348 mg/dL (70-110)
--- NOTE | 2024-04-07 12:27 | CA ---
Transthoracic Echo Report Name: Maikel Flannery Age: 63 Gender: M : 1960 Exam Date: 04/07/2024 10:10 Exam Location: [facility] Ht (in): 65 Wt (lb): 104 Ordering Physician: Servando Whalen MD Attending/Referring Phys: Languages And Literature Instructor Suyapa Cordova RDCS Procedure CPT: Indications: CAD Cardiac Hx: Technical Quality: Good Contrast 1: Total Dose (mL): Contrast 2: Total Dose (mL): MEASUREMENTS (Male / Female) Normal Values 2D ECHO LV Diastolic Diameter PLAX 4.0 cm 4.2 - 5.9 / 3.9 - 5.3 cm LV Systolic Diameter PLAX 3.1 cm IVS Diastolic Thickness 1.1 cm 0.6 - 1.0 / 0.6 - 0.9 cm LVPW Diastolic Thickness 1.2 cm 0.6 - 1.0 / 0.6 - 0.9 cm LV Relative Wall Thickness 0.6 RV Internal Dim ED PLAX 3.8 cm LA Systolic Diameter LX 2.8 cm 3.0 - 4.0 / 2.7 - 3.8 cm LV Diastolic Volume MOD BP 76.2 cm??? 67 - 155 / 56 - 104 cm??? LV Systolic Volume MOD BP 31.7 cm??? 22 - 58 / 19 - 49 cm??? LV Ejection Fraction MOD BP 58.4 % >= 55 % LV Cardiac Index MOD BP 2744.4 cm???/min???m??? LV Diastolic Volume MOD 4C 86.6 cm??? LV Systolic Volume MOD 4C 37.9 cm??? LV Ejection Fraction MOD 4C 56.2 % LV Cardiac Index MOD 4C 3000.3 cm???/min???m??? LV Diastolic Length 4C 7.6 cm LV Systolic Length 4C 5.8 cm LV Diastolic Volume MOD 2C 65.6 cm??? LV Systolic Volume MOD 2C 25.3 cm??? LV Ejection Fraction MOD 2C 61.4 % LV Cardiac Index MOD 2C 2484.7 cm???/min???m??? LV Diastolic Length 2C 7.8 cm LV Systolic Length 2C 6.1 cm LA Volume 26.4 cm??? 18 - 58 / 22 - 52 cm??? LA Volume Index 18.1 cm???/m??? 16 - 28 cm???/m??? M-MODE Aortic Root Diameter MM 3.2 cm AV Cusp Separation MM 2.4 cm DOPPLER AV Peak Velocity 109.0 cm/s AV Peak Gradient 4.8 mmHg MV Area PHT 2.3 cm??? Mitral E Point Velocity 72.0 cm/s Mitral A Point Velocity 81.4 cm/s Mitral E to A Ratio 0.9 MV Deceleration Time 332.5 ms FINDINGS Left Ventricle Left ventricular ejection fraction is estimated at 50-55 %. Left ventricular cavity size normal. Mildly increased septal wall thickness. Apical inferior wall akinesis Right Ventricle Mild right ventricular dilatation. Unable to estimate the right ventricular systolic pressure. Right Atrium Normal right atrial size. No right atrial thrombus or mass seen. Left Atrium Normal left atrial size. No left atrial thrombus or mass present. Mitral Valve Structurally normal mitral valve. No mitral stenosis, regurgitation or prolapse. Aortic Valve Trileaflet aortic valve. No aortic valve stenosis or regurgitation. Tricuspid Valve Structurally normal tricuspid valve. No tricuspid stenosis, regurgitation or prolapse. Pulmonic Valve Structurally normal pulmonic valve. No pulmonic regurgitation. Pericardium No pericardial effusion. No pleural effusion. Aorta Normal size aortic root and proximal ascending aorta. CONCLUSIONS Ejection fraction 50-55% Mildly increased left ventricular wall thickness Inferior apical akinesis No mitral regurgitation No pericardial effusion Previewed by: Dr. Dakota Ochoa DO (Electronically Signed) Final Date: 07 April 2024 12:26
[2024-04-07] MEDS ORDERED: Potassium Replacement Protocol 1 EACH MISC MISCELLANE PRN (12:33)
[2024-04-07] MEDS: POTASSIUM CHLORIDE ER 20 MEQ TAB.ER PO SCH (13:37)
--- NOTE | 2024-04-07 13:49 | CT ---
EXAMINATION TYPE: CT abdomen pelvis wo con DATE OF EXAM: 04/07/2024 COMPARISON: Ultrasound 04/03/[address] 01/14/2024 HISTORY: 63-year-old male abdominal pain, weakness CT DLP: 302.8 mGycm. Automated exposure control for dose reduction was used. TECHNIQUE: Contiguous axial scanning of the abdomen and pelvis without IV contrast. Coronal and sagit lisa reconstructions performed. FINDINGS: There is generalized anasarca change. Heart upper limits of normal in size. Coronary artery calcifica tions. At least trace pleural effusions and some basilar septal lines noted. Some periportal edema in the liver. Gallstones with mild gallbladder wall thickening but collapsed ga llbladder. Noncontrast appearance of the adrenal glands, kidneys, and spleen show no gross abnormality. Pancreas not well delineated from the mesenteric edema and carotid structures. There is particular li mitation due to lack of contrast and paucity of intra-abdominal fat. Moderate atherosclerotic calcifications infrarenal abdominal aorta and common iliac arteries. There is mild ascites fluid along with the generalized anasarca change. Mild to moderate fluid in the pelvis. No dilated small bowel or free air. Scattered mild to moderate stool. Sigmoid diverticulosis. Bladder urine distended. Multiple pelvic phleboliths with central prosthetic calcifications. Bones: Chronic superior endplate Schmorl's node in L3 vertebral body. IMPRESSION: 1. Generalized anasarca change with trace bilateral pleural effusions and some basilar septal lines. Consider fluid overload state and mild pulmonary vascular congestion. 2. There is mild abdominopelvic ascites also present which is consistent with the fluid overload sta te. 3. Cholelithiasis. No gallbladder hydrops to suggest acute cholecystitis. The pancreas is obscured b y the anasarca changes and crowded structures. Exam limitations due to lack of contrast, paucity of i ntra-abdominal fat, and soft tissue edema.
--- NOTE | 2024-04-07 15:25 | P.PN ---
Subjective Progress Note Date: 04/07/24 Principal diagnosis: Reason for follow-up is leukocytosis Patient is a 63-year-old male past medical history significant for diabetes mellitus hypertension hyperlipidemia osteoarthritis COPD, presenting to the hospital with mental status changes noticed to be in DKA and did have elevated white count on admission but no fever prompting this consultation. On today's evaluation that is 04/07/2024, the patient continues to be afebrile, the patient is on room air and breathing comfortably, the Pt denies having any chest pain or cough, the patient denies having any abdominal pain no vomiting or any diarrhea has been reported by the nursing staff Patient white count is down 11.23, creatinine 0.[address] generalized anasarca cholelithiasis but no features suggestive of acute cholecystitis Objective - Vital Signs Vital signs: Vital Signs Temp 98.3 F 04/07/24 07:52 Pulse 90 04/07/24 12:31 Resp 18 04/07/24 07:52 BP 118/69 04/07/24 07:52 Pulse Ox 97 04/07/24 07:52 FiO2 Intake & Output 04/06/24 04/07/24 04/07/24 18:59 06:59 18:59 Intake Total 1750 Output Total 750 1150 Balance -750 600 Weight 47.4 kg Intake: Intake, IV Titration 1000 Amount Ampicillin-Sulbactam 3 gm 100 In Sodium Chloride 0.9% 100 ml @ 200 mls/hr IVPB Q6HR [facility] Rx#:[id number] Sodium Chloride 0.9% 1, 900 000 ml @ 75 mls/hr IV . [id number] [facility] Rx#:[id number] Oral 750 Output: Urine 750 1150 Other: Voiding Method Urinal Urinal - Exam GENERAL DESCRIPTION: Middle-age male lying in bed in no distress RESPIRATORY SYSTEM: Unlabored breathing , decreased breath sounds at bases HEART: S1 S2 regular rate and rhythm , ABDOMEN: Soft , no tenderness EXTREMITIES: No edema feet - Labs CBC & Chem 7: 04/07/24 06:10 04/07/24 06:10 Labs: Abnormal Lab Results - Last 24 Hours (Table) 04/06/24 04/06/24 04/06/24 Range/Units 09:53 09:53 16:59 WBC 12.06 H (4.50-10.00) X 10*3/uL RBC 3.04 L (4.40-5.60) X 10*6/uL Hgb 9.7 L (13.0-17.0) g/dL Hct 30.1 L (39.6-50.0) % MCV 99.0 H (80.0-97.0) FL MCH (27.0-32.0) pg Immature Gran # 0.09 H (0.00-0.04) X 10*3/uL Neutrophils # 9.04 H (1.80-7.70) X 10*3/uL Eosinophils # 0.03 L (0.04-0.35) X 10*3/uL Potassium (3.5-5.5) mmol/L Chloride (96-109) mmol/L BUN (9.0-27.0) mg/dL Creatinine 0.4 L (0.6-1.5) mg/dL BUN/Creatinine Ratio 25.25 H (12.00-20.00) Ratio Glucose 233 H (70-110) mg/dL POC Glucose (mg/dL) (70-110) mg/dL AST 97 H (14-35) U/L ALT 312 H (10-49) U/L Alkaline Phosphatase 338 H (41-126) U/L Total Protein 4.9 L (6.2-8.2) g/dL Albumin 3.2 L (3.8-4.9) g/dL Procalcitonin 0.46 H (0.02-0.09) ng/mL 04/06/24 04/06/24 04/07/24 Range/Units 17:37 21:21 05:45 WBC (4.50-10.00) X 10*3/uL RBC (4.40-5.60) X 10*6/uL Hgb (13.0-17.0) g/dL Hct (39.6-50.0) % MCV (80.0-97.0) FL MCH (27.0-32.0) pg Immature Gran # (0.00-0.04) X 10*3/uL Neutrophils # (1.80-7.70) X 10*3/uL Eosinophils # (0.04-0.35) X 10*3/uL Potassium (3.5-5.5) mmol/L Chloride (96-109) mmol/L BUN (9.0-27.0) mg/dL Creatinine (0.6-1.5) mg/dL BUN/Creatinine Ratio (12.00-20.00) Ratio Glucose (70-110) mg/dL POC Glucose (mg/dL) 363 H 325 H 56 L (70-110) mg/dL AST (14-35) U/L ALT (10-49) U/L Alkaline Phosphatase (41-126) U/L Total Protein (6.2-8.2) g/dL Albumin (3.8-4.9) g/dL Procalcitonin (0.02-0.09) ng/mL 04/07/24 04/07/24 04/07/24 Range/Units 06:10 06:10 11:27 WBC 11.23 H (4.50-10.00) X 10*3/uL RBC 3.15 L (4.40-5.60) X 10*6/uL Hgb 10.3 L (13.0-17.0) g/dL Hct 30.7 L (39.6-50.0) % MCV 97.5 H (80.0-97.0) FL MCH 32.7 H (27.0-32.0) pg Immature Gran # 0.06 H (0.00-0.04) X 10*3/uL Neutrophils # (1.80-7.70) X 10*3/uL Eosinophils # (0.04-0.35) X 10*3/uL Potassium 3.1 L (3.5-5.5) mmol/L Chloride 110 H (96-109) mmol/L BUN 6.6 L (9.0-27.0) mg/dL Creatinine 0.4 L (0.6-1.5) mg/dL BUN/Creatinine Ratio (12.00-20.00) Ratio Glucose 57 L (70-110) mg/dL POC Glucose (mg/dL) 348 H (70-110) mg/dL AST 62 H (14-35) U/L ALT 264 H (10-49) U/L Alkaline Phosphatase 342 H (41-126) U/L Total Protein 5.0 L (6.2-8.2) g/dL Albumin 3.3 L (3.8-4.9) g/dL Procalcitonin (0.02-0.09) ng/mL Assessment and Plan (1) Leukocytosis Current Visit: Yes Status: Acute Code(s): D72.829 - ELEVATED WHITE BLOOD CELL COUNT, UNSPECIFIED SNOMED Code(s): 787813501 Plan: 1patient presented to hospital with episode of weakness and unresponsiveness in this patient who did have diabetic ketoacidosis and elevated white count more likely related to hemoconcentration however then to acute infection as the patient did not have any fever during this hospital stay chest x-ray was negative urine was negative for an abdominal soft wound clean examination pat ient did have bad dentition may be contributing to some of this elevated white count 2-blood cultures currently pending inflammatory markers pending CT abdominal pelvis did show some ascites culture but no cholecystitis 3-patient to continue with Unasyn will repeat a CBC with a.m. lab Dictation was produced using [employer] dictation software. please excuse any grammatical, word or spelling errors. Time with Patient: Less than 30
[2024-04-07 16:31] LABS: Glucose,Whole Blood 410 mg/dL (70-110)
[2024-04-07 20:24] LABS: Glucose,Whole Blood 364 mg/dL (70-110)
--- NOTE | 2024-04-07 22:05 | P.CON ---
Consult Note - . Assessment/Plan:: 63 yo male w/ generalized abdominal pain ctap demonstrates non specificn ascites AUS demonstrates gallstones only -no surgical intervention
[2024-04-08 05:13] LABS: Glucose,Whole Blood 65 mg/dL (70-110)
[2024-04-08 06:12] LABS: Glucose,Whole Blood 106 mg/dL (70-110)
[2024-04-08 07:26] VITALS: RESP 17
[2024-04-08 09:25] LABS: Basophils # (A) 0.02 X 10*3/uL (0.00-0.10); Basophils % (A) 0.3 %; Eosinophils # (A) 0.09 X 10*3/uL (0.04-0.35); Eosinophils % (A) 1.5 %; HCT 29.8 % (39.6-50.0); HGB 9.8 g/dL (13.0-17.0); Lymphocytes # (A) 2.15 X 10*3/uL (0.90-5.00); MCH 32.5 pg (27.0-32.0); MCHC 32.9 g/dL (32.0-37.0); MCV 98.7 FL (80.0-97.0); Mean Platelet Volume 10.7 FL (9.5-12.2); Monocytes % (A) 6.5 %; NRBC Per 100 WBC 0 X 10*3/uL (0.00-0.01); Neutrophils # (A) 3.45 X 10*3/uL (1.80-7.70); Neutrophils % (A) 56.2 %; Platelet Count 151 X 10*3/uL (140-440); RBC 3.02 X 10*6/uL (4.40-5.60); RDW 12.7 % (11.5-14.5); WBC 6.14 X 10*3/uL (4.50-10.00)
[2024-04-08 10:58] LABS: ALT 207 U/L (10-49); AST 71 U/L (14-35); Albumin 3.4 g/dL (3.8-4.9); Alkaline Phosphatase 317 U/L (41-126); BUN/Creat Ratio 14.75 Ratio (12.00-20.00); Blood Urea Nitrogen 5.9 mg/dL (9.0-27.0); Calcium 8.8 mg/dL (8.7-10.3); Carbon Dioxide 24.1 mmol/L (21.6-31.8); Chloride 109 mmol/L (96-109); Glucose 63 mg/dL (70-110); Potassium 3.4 mmol/L (3.5-5.5); Sodium 143 mmol/L (135-145); Total Bilirubin 0.3 mg/dL (0.3-1.2); Total Protein 4.4 g/dL (6.2-8.2)
[2024-04-08 11:36] LABS: Glucose,Whole Blood 387 mg/dL (70-110)
[2024-04-08 14:07] VITALS: BP 136/79; PULSE 99; TEMP 98.2
--- NOTE | 2024-04-08 14:10 | P.PN ---
Subjective Progress Note Date: 04/08/24 Principal diagnosis: Cholelithiasis Patient is awake and alert today. Denies abdominal pain. Tolerating regular diet. No nausea or vomiting. Labs noted. Objective - Vital Signs Vital signs: Vital Signs Temp 98.2 F 04/08/24 13:25 Pulse 99 04/08/24 13:25 Resp 17 04/08/24 13:25 BP 136/79 04/08/24 13:25 Pulse Ox 99 04/08/24 13:25 FiO2 Intake & Output 04/07/24 04/08/24 04/08/24 18:59 06:59 18:59 Intake Total 1100 Output Total 475 620 Balance 625 -620 Intake: Intake, IV Titration 1100 Amount Ampicillin-Sulbactam 3 gm 200 In Sodium Chloride 0.9% 100 ml @ 200 mls/hr IVPB Q6HR [facility] Rx#:[id number] Sodium Chloride 0.9% 1, 900 000 ml @ 75 mls/hr IV . [id number] [facility] Rx#:[id number] Output: Urine 475 620 Other: Voiding Method Urinal Urinal Urinal # Voids 4 - Exam Abdomen: Soft, nontender, nondistended - Labs CBC & Chem 7: 04/08/24 03:31 04/08/24 03:31 Labs: Abnormal Lab Results - Last 24 Hours (Table) 04/07/24 04/07/24 04/08/24 Range/Units 16:30 20:23 03:31 RBC 3.02 L (4.40-5.60) X 10*6/uL Hgb 9.8 L (13.0-17.0) g/dL Hct 29.8 L (39.6-50.0) % MCV 98.7 H (80.0-97.0) FL MCH 32.5 H (27.0-32.0) pg Potassium (3.5-5.5) mmol/L BUN (9.0-27.0) mg/dL Creatinine (0.6-1.5) mg/dL Glucose (70-110) mg/dL POC Glucose (mg/dL) 410 H 364 H (70-110) mg/dL AST (14-35) U/L ALT (10-49) U/L Alkaline Phosphatase (41-126) U/L Total Protein (6.2-8.2) g/dL Albumin (3.8-4.9) g/dL Globulin (1.6-3.3) g/dL Albumin/Globulin Ratio (1.60-3.17) Ratio 04/08/24 04/08/24 04/08/24 Range/Units 03:31 05:12 11:34 RBC (4.40-5.60) X 10*6/uL Hgb (13.0-17.0) g/dL Hct (39.6-50.0) % MCV (80.0-97.0) FL MCH (27.0-32.0) pg Potassium 3.4 L (3.5-5.5) mmol/L BUN 5.9 L (9.0-27.0) mg/dL Creatinine 0.4 L (0.6-1.5) mg/dL Glucose 63 L (70-110) mg/dL POC Glucose (mg/dL) 65 L 387 H (70-110) mg/dL AST 71 H (14-35) U/L ALT 207 H (10-49) U/L Alkaline Phosphatase 317 H (41-126) U/L Total Protein 4.4 L (6.2-8.2) g/dL Albumin 3.4 L (3.8-4.9) g/dL Globulin 1.0 L (1.6-3.3) g/dL Albumin/Globulin Ratio 3.40 H (1.60-3.17) Ratio Microbiology - Last 24 Hours (Table) 04/06/24 16:59 Blood Culture - Preliminary Blood Assessment and Plan (1) Cholelithiasis Narrative/Plan: 63-year-old male with recent findings of gallstones. Patient was lethargic when we were consulted yesterday. Doing well today. No pain. No surgical intervention planned at this time. Discussed asymptomatic cholelithiasis with patient. He will contact me with changes. Will sign off. Please call if needed. Current Visit: Yes Status: Acute Code(s): K80.20 - CALCULUS OF GALLBLADDER W/O CHOLECYSTITIS W/O OBSTRUCTION SNOMED Code(s): 687115538
--- NOTE | 2024-04-08 15:24 | P.PN ---
Subjective Progress Note Date: 04/08/24 Principal diagnosis: Reason for follow-up is leukocytosis Patient is a 63-year-old male past medical history significant for diabetes mellitus hypertension hyperlipidemia osteoarthritis COPD, presenting to the hospital with mental status changes noticed to be in DKA and did have elevated white count on admission but no fever prompting this consultation. On today's evaluation that is 04/08/2024, Patient is afebrile patient is currently on room air and denies having any shortness of breath, the patient denies any chest pain or cough, the patient denies any nausea vomiting did not have any abdominal pain and no diarrhea, mention feeling better. Patient white normalized to 6.14, creatinine 0.4 blood cultures have been negative Objective - Vital Signs Vital signs: Vital Signs Temp 98.2 F 04/08/24 13:25 Pulse 99 04/08/24 13:25 Resp 17 04/08/24 13:25 BP 136/79 04/08/24 13:25 Pulse Ox 99 04/08/24 13:25 FiO2 Intake & Output 04/07/24 04/08/24 04/08/24 18:59 06:59 18:59 Intake Total 1100 Output Total 475 620 Balance 625 -620 Intake: Intake, IV Titration 1100 Amount Ampicillin-Sulbactam 3 gm 200 In Sodium Chloride 0.9% 100 ml @ 200 mls/hr IVPB Q6HR [facility] Rx#:[id number] Sodium Chloride 0.9% 1, 900 000 ml @ 75 mls/hr IV . [id number] [facility] Rx#:[id number] Output: Urine 475 620 Other: Voiding Method Urinal Urinal Urinal # Voids 4 - Exam GENERAL DESCRIPTION: Middle-age male lying in bed in no distress RESPIRATORY SYSTEM: Unlabored breathing , decreased breath sounds at bases HEART: S1 S2 regular rate and rhythm , ABDOMEN: Soft , no tenderness EXTREMITIES: No edema feet - Labs CBC & Chem 7: 04/08/24 03:31 04/08/24 03:31 Labs: Abnormal Lab Results - Last 24 Hours (Table) 04/07/24 04/07/24 04/08/24 Range/Units 16:30 20:23 03:31 RBC 3.02 L (4.40-5.60) X 10*6/uL Hgb 9.8 L (13.0-17.0) g/dL Hct 29.8 L (39.6-50.0) % MCV 98.7 H (80.0-97.0) FL MCH 32.5 H (27.0-32.0) pg Potassium (3.5-5.5) mmol/L BUN (9.0-27.0) mg/dL Creatinine (0.6-1.5) mg/dL Glucose (70-110) mg/dL POC Glucose (mg/dL) 410 H 364 H (70-110) mg/dL AST (14-35) U/L ALT (10-49) U/L Alkaline Phosphatase (41-126) U/L Total Protein (6.2-8.2) g/dL Albumin (3.8-4.9) g/dL Globulin (1.6-3.3) g/dL Albumin/Globulin Ratio (1.60-3.17) Ratio 04/08/24 04/08/24 04/08/24 Range/Units 03:31 05:12 11:34 RBC (4.40-5.60) X 10*6/uL Hgb (13.0-17.0) g/dL Hct (39.6-50.0) % MCV (80.0-97.0) FL MCH (27.0-32.0) pg Potassium 3.4 L (3.5-5.5) mmol/L BUN 5.9 L (9.0-27.0) mg/dL Creatinine 0.4 L (0.6-1.5) mg/dL Glucose 63 L (70-110) mg/dL POC Glucose (mg/dL) 65 L 387 H (70-110) mg/dL AST 71 H (14-35) U/L ALT 207 H (10-49) U/L Alkaline Phosphatase 317 H (41-126) U/L Total Protein 4.4 L (6.2-8.2) g/dL Albumin 3.4 L (3.8-4.9) g/dL Globulin 1.0 L (1.6-3.3) g/dL Albumin/Globulin Ratio 3.40 H (1.60-3.17) Ratio Microbiology - Last 24 Hours (Table) 04/06/24 16:59 Blood Culture - Preliminary Blood Assessment and Plan (1) Leukocytosis Current Visit: Yes Status: Acute Code(s): D72.829 - ELEVATED WHITE BLOOD CE LL COUNT, UNSPECIFIED SNOMED Code(s): 467151780 Plan: 1patient presented to hospital with episode of weakness and unresponsiveness in this patient who did have diabetic ketoacidosis and elevated white count more likely related to hemoconcentration however then to acute infection as the patient did not have any fever during this hospital stay chest x-ray was negative urine was negative for an abdominal soft wound clean examination patient did have bad dentition may be contributing to some of this elevated white count 2-blood cultures has been negative CT abdominal pelvis did show some ascites, gallstone but no cholecystitis 3-patient white count has normalized has received Unasyn recommend 10-day course of oral Augmentin on discharge predominantly for his dental infection advised to follow-up with the oral surgeon patient mention he did have appointment in 2 weeks Dictation was produced using [employer] dictation software. please excuse any grammatical, word or spelling errors. Time with Patient: Less than 30
[2024-04-08 16:26] LABS: Glucose,Whole Blood 381 mg/dL (70-110)
[2024-04-08] MEDS: PANTOPRAZOLE 40 MG TABLET PO SCH (16:44)
[2024-04-08] MEDS ORDERED: SYMBICORT 160-4.5 MCG INHALER INHALATION SCH (20:00)
[2024-04-08] MEDS ORDERED: MONTELUKAST 10 MG TAB PO SCH (21:00)
--- NOTE | 2024-04-09 06:33 | PN ---
PROGRESS NOTE SUBJECTIVE: 63-year-old white male with acute encephalopathy, COPD exacerbation, insulin-dependent diabetes mellitus, doing better. OBJECTIVE: VITAL SIGNS: Temp 97.5, blood pressure 130s/70s, O2 98-99, respiratory rate 18, pulse CARDIOVASCULAR: S1, S2. LUNGS: Transmitted upper sounds. GI: Soft. Sugars 360s to 65-106. Liver enzymes are elevated but are slowly improving. CAT scan of the abdomen was done. Continue current treatment. Possible discharge home tomorrow. We will work him up for infection as he has elevated procalcitonin levels. Prognosis guarded. MMODL / IJN: [id number] /
[2024-04-09] MEDS ORDERED: LEVOFLOXACIN 250 MG TAB PO SCH (09:00)
--- NOTE | 2024-04-13 11:19 | CDI ---
Documentation Clarification Form Date: 04/13/2024 11:05:57 AM From: Pam Cadena Admit Date: 04/03/2024 11:52:00 PM Patient Name: Maikel Flannery Visit Number: [id number] Discharge Date: 04/08/2024 06:56:00 PM ATTENTION: The Clinical Documentation Specialists (CDI) and [facility] Coding Staff appreciate your assistance in clarifying documentation. Please respond to the clarification below the line at the bottom and electronically sign. The CDI & [facility] Coding staff will review the response and follow-up if needed. Please note: Queries are made part of the Legal Health Record. If you have any questions, please contact the author of this message via ITS. Dr. Servando Whalen Malnutrition is documented in your 04/07/24 Progress note. Additional clarification regarding the severity of malnutrition is requested. History/Risk Factors: patient is a 63 year old male who has a history of DM type 1, COPD, emphysema, anxiety, CAD, and HTN. Clinical Indicators: Patient presented in DM type 1 ketoacidosis, and was diagnosed with metabolic encephalopathy, ARSEN, COPD with acute exacerbation, hyperkalemia, fatty liver, and malnutrition. WBC: 29.4, HGB 12.5, Potassium 5.9, C02: <5, BUN 33, Creatinine 1.41, glucose 1119, AST 200, ALT 492, alkaline phos 528, total protein 5.8 Current BMI: 17 RD Consult Assessment: patients nutrition intake is poor, currently NPO, underweight, nutrient status: malnutrition, chronic, severe, physiological causes increasing nutrient needs are due to COPD, muscle wasting to clavicular and scapula region, fat loss to triceps. Treatment: consistent CHO diet, glucerna TID Supplements: Potassium, proton pump inhibitor, MG PRN Please clarify the severity of malnutrition, if known: [ ] Mild Protein-Calorie Malnutrition [ ] Moderate Protein-Calorie Malnutrition [ ] Severe Protein-Calorie Malnutrition [ ] Other condition, please specify [ ] Unable to Determine MTDD
--- NOTE | 2024-04-19 13:28 | PN ---
PROGRESS NOTE Severe protein-calorie malnutrition. MMODL / IJN: [id number] /
--- NOTE | 2024-04-19 14:42 | HP ---
HISTORY AND PHYSICAL HISTORY OF PRESENT ILLNESS: This is a 63-year-old white male who came to the emergency room with altered mental status, was found to have DKA with sugars over 1000, severe dehydration. He apparently had not been eating and drinking for a day after having food poisoning with nausea and vomiting over at a restaurant up in [place]. Speech is garbled. He has severe fatigue and is weak. HOME MEDICINES: Reviewed including, 1. Insulin. 2. Metoprolol. 3. Trelegy. 4. Lipitor. 5. Lactulose. 6. Xanax. 7. Aspirin. 8. Plavix. ALLERGIES: Negative. REVIEW OF SYSTEMS: A 14-point review of system positive for weakness, fatigue, dehydration. Please see further orders. PAST MEDICAL HISTORY: Diabetes mellitus, COPD, dyslipidemia, hypertension, osteoarthritis, valvular disorders. PAST SURGICAL HISTORY: Orthopedic surgeries. FAMILY HISTORY: History of cancers mom. PHYSICAL EXAMINATION: VITAL SIGNS: Temperature 98.8, pulse 90s to 101, respiratory rate 18 to 20, blood pressure 96/44 on admission. CARDIOVASCULAR: S1, S2. LUNGS: Transmitted upper sounds. HEENT: Head normocephalic, atraumatic. Pupils equal, round, and reactive. NEUROLOGIC: Cranial nerves intact. PSYCH: Fair mood and affect. ASSESSMENT: DKA, severe dehydration, possible food poisoning, acute on chronic anemia, hypokalemia, DKA protocol. Elevated liver enzymes secondary to alcohol intake. PROGNOSIS: Guarded. Possible cholecystitis. Please see further orders. MMMOJGANL / IJN: [id number] /
== END 2024-04-08 18:56 | disposition home or self-care (01) | DRG 637 ==
LOC: EC 20:27 → 2SICU 23:52 → 4SSUR 04-05 07:53
PROVIDERS: ADMIT Family Medicine; ATTEND Family Medicine
DX: E10.10 Type 1 diabetes mellitus with ketoacidosis without coma (principal); E43 Unspecified severe protein-calorie malnutrition; G93.41 Metabolic encephalopathy; R18.8 Other ascites; N17.9 Acute kidney failure, unspecified; J44.1 Chronic obstructive pulmonary disease with (acute) exacerbation; Z68.1 Body mass index [BMI] 19.9 or less, adult; E86.0 Dehydration; D72.829 Elevated white blood cell count, unspecified; E87.5 Hyperkalemia; R74.01 Elevation of levels of liver transaminase levels; K76.0 Fatty (change of) liver, not elsewhere classified; E78.5 Hyperlipidemia, unspecified; I25.10 Atherosclerotic heart disease of native coronary artery without angina pectoris; K80.20 Calculus of gallbladder without cholecystitis without obstruction; F41.9 Anxiety disorder, unspecified; J43.9 Emphysema, unspecified; I10 Essential (primary) hypertension; M19.90 Unspecified osteoarthritis, unspecified site; W19.XXXA Unspecified fall, initial encounter; Y92.009 Unspecified place in unspecified non-institutional (private) residence as the place of occurrence of the external cause; Z87.891 Personal history of nicotine dependence; Z79.4 Long term (current) use of insulin; Z79.82 Long term (current) use of aspirin; Z79.02 Long term (current) use of antithrombotics/antiplatelets; Z95.5 Presence of coronary angioplasty implant and graft; Z79.899 Other long term (current) drug therapy; Z79.51 Long term (current) use of inhaled steroids; Z71.3 Dietary counseling and surveillance
CPT/HCPCS: 36415; 36600; 51702; 70450; 71046; 71250; 72125; 74176; 76705; 80048; 80051; 80053; 80306; 80320; 81001; 82009; 82550; 82565; 82805; 82947; 83036; 84100; 84132; 84145; 84484; 84520; 85025; 85610; 85730; 86140; 87040; 93005; 93306; 94640; 94760; 96361; 96374; 99291

== ENCOUNTER 2024-07-01 06:23 | Inpatient (IN) | payer MEDICARE ==
[2024-07-01 06:28] LABS: Glucose,Whole Blood >600 mg/dL (70-110)
[2024-07-01] MEDS ORDERED: DEXTROSE 50% SYRINGE 50 ML IVP PRN (06:34)
[2024-07-01] MEDS: SODIUM CHLORIDE 0.9% 1,000 ML IV STA (06:37)
--- NOTE | 2024-07-01 06:37 | ED ---
General Adult HPI - General Chief complaint: Altered Mental Status Stated complaint: AMS Time Seen by Provider: 07/01/24 06:32 Source: patient, EMS, RN notes reviewed Mode of arrival: EMS Limitations: no limitations - History of Present Illness Initial comments: 63-year-old male presents emerged part via EMS from home with altered mental status. Patient was found by mother confused, hypoglycemic reports that his Dexcom stopped working a few days ago. He is unsure when his last dose of insulin was. EMS did report that he did not have any complaints last night per patient. Patient has been in the hospital recently for DKA. Patient is a known diabetic. Patient is glucose reads high on glucometer. Patient does admit to nausea, vomiting he denies any complaints of chest pain shortness of breath headache or dizziness. Denies any other recent illnesses. - Related Data Home Medications Medication Instructions Recorded Confirmed ALPRAZolam [Xanax] 0.5 mg PO TID PRN 12/31/21 04/04/24 Aspirin [Adult Low Dose Aspirin EC] 81 mg PO DAILY 12/31/21 04/04/24 Clopidogrel [Plavix] 75 mg PO DAILY 12/14/23 04/04/24 Insulin Aspart (Niacinamide) See Protocol SQ AC-TID 12/14/23 04/04/24 [Fiasp 100 Unit/ml Vial] Metoprolol Succinate [Toprol XL] 50 mg PO DAILY 12/14/23 04/04/24 Fluticasone/Umeclidin/Vilanter 1 puff INHALATION RT-DAILY 01/14/24 04/04/24 [Trelegy Ellipta 200-62.5-25] Atorvastatin [Lipitor] 80 mg PO DAILY 04/04/24 04/04/24 Lactulose 10 gm PO TID 04/04/24 04/04/24 Previous Rx's Medication Instructions Recorded INSULIN ASPART (NovoLOG) [NovoLOG 0 unit SQ ACHS each 04/08/24 (formulary)] Insulin Detemir (Levemir) [Levemir] 14 unit SQ HS each 04/08/24 Levofloxacin [Levaquin] 250 mg PO DAILY 7 Days #7 tab 04/08/24 Mometasone/Formoterol [Dulera 200 1 puff INHALATION BID 30 Days #13 04/08/24 Mcg-5 Mcg Inhaler] gm Pantoprazole [Protonix] 40 mg PO AC-BID 90 Days #160 tab 04/08/24 Allergies Allergy/AdvReac Type Severity Reaction Status Date / Time No Known Allergies Allergy Verified 07/01/24 06:35 Review of Systems ROS Statement: Those systems with pertinent positive or pertinent negative responses have been documented in the HPI. ROS Other: All systems not noted in ROS Statement are negative. Past Medical History Past Medical History: COPD, Diabetes Mellitus, Hyperlipidemia, Hypertension, Osteoarthritis (OA), Vascular Disorder Additional Past Medical History / Comment(s): TENDONITIS RT ELBOW, "Cyst behind rt eye", right leg & foot pain- tx. " bad Teeth". PORRAS History of Any Multi-Drug Resistant Organisms: None Reported Past Surgical History: Orthopedic Surgery Additional Past Surgical History / Comment(s): testicular surgery, reconstructive surgery on left ring finger, rt shoulder rotator cuff, recent aortogram Past Anesthesia/Blood Transfusion Reactions: No Reported Reaction Date of Last Stent Placement:: 2022 Past Psychological History: Anxiety Smoking Status: Former smoker Past Alcohol Use History: Occasional Past Drug Use History: Marijuana - Past Family History Mother Family Medical History: Cancer Additional Family Medical History / Comment(s): LUNG CANCAR General Exam General appearance: alert, in no apparent distress Head exam: Present: atraumatic, normocephalic, normal inspection Eye exam: Present: normal appearance, PERRL, EOMI. Absent: scleral icterus, conjunctival injection, periorbital swelling ENT exam: Present: normal exam, normal oropharynx Neck exam: Present: normal inspection, full ROM. Absent: tenderness, meningismus, lymphadenopathy Respiratory exam: Present: normal lung sounds bilaterally. Absent: respiratory distress, wheezes, rales, rhonchi, stridor Cardiovascular Exam: Present: regular rate, normal rhythm, normal heart sounds. Absent: systolic murmur, diastolic murmur, rubs, gallop, clicks GI/Abdominal exam: Present: soft, normal bowel sounds. Absent: distended, ten derness, guarding, rebound, rigid Neurological exam: Present: alert, oriented X3, CN II-XII intact Skin exam: Present: warm, dry, intact, normal color. Absent: rash Course Vital Signs 07/01/24 07/01/24 07/01/24 06:24 06:58 08:06 Temperature 96.9 F L 92.3 F L Pulse Rate 96 96 98 Respiratory 20 20 20 Rate Blood Pressure 103/47 101/54 108/54 O2 Sat by Pulse 100 100 99 Oximetry EKG Findings - EKG Comments: EKG Findings:: EKG performed at 6: 21 sinus rhythm rate 96 QRS 126 QT/QTc 201/299 - EKG Results: EKG: interpreted by ETHAN Medical Decision Making - Medical Decision Making Was pt. sent in by a medical professional or institution (, PA, ENVELOPE SEALING MACHINE OPERATOR, urgent care, hospital, or senior living...) When possible be specific @ -No Did you speak to anyone other than the patient for history (EMS, parent, family, police, friend...)? What history was obtained from this source @ -EMS providing recent history and symptom history from family Did you review nursing and triage notes (agree or disagree)? Why? @ -I reviewed and agree with nursing and triage notes Were old charts reviewed (outside hosp., previous admission, EMS record, old EKG, old radiological studies, urgent care reports/EKG's, senior living records)? Report findings @ -No old charts were reviewed Differential Diagnosis (chest pain, altered mental status, abdominal pain women, abdominal pain men, vaginal bleeding, weakness, fever, dyspnea, syncope, headac he, dizziness, GI bleed, back pain, seizure, CVA, palpatations, mental health, musculoskeletal)? @ -Differential Weakness: Hypoglycemia, shock, sepsis, hyponatremia, anemia, infection, AK, ETOH, adverse medicine reaction, overdose, stroke, this is not meant to be an all-inclusive list. Differential Altered Mental Status: Hypoglycemia, DKA, hypercapnia, ETOH, overdose, CO poisoning, trauma, myxedema coma, HTN encephalopathy, infection, encephalitis, psychosis, intercranial hemorrhage, hepatic encephalopathy, meningitis, CVA, this is not meant to be an all-inclusive list EKG interpreted by me (3pts min.). @ -As above X-rays interpreted by me (1pt min.). @ -X-ray shows no acute cardiopulmonary process CT interpreted by me (1pt min.). @ -None done U/S interpreted by me (1pt. min.). @ -None done What testing was considered but not performed or refused? (CT, X-rays, U/S, labs)? Why? @ -None What meds were considered but not given or refused? Why? @ -None Did you discuss the management of the patient with other professionals (professionals i.e. DrGuicho, PA, ENVELOPE SEALING MACHINE OPERATOR, lab, RT, psych nurse, social service coordinator, social media senior associate, teacher, security public safety officer, rehabilitation case coordinator)? Give summary @ -Dr. Whalen for admission, Dr. Tapia for ICU management and admission Was smoking cessation discussed for >3mins.? @ -No Was critical care preformed (if so, how long)? @ -35 minutes Were there social determinants of health that impacted care today? How? (Homelessness, low income, unemployed, alcoholism, drug addiction, transpor tation, low edu. Level, literacy, decrease access to med. care, correction, rehab)? @ -No Was there de-escalation of care discussed even if they declined (Discuss DNR or withdrawal of care, Hospice)? DNR status @ -No What co-morbidities impacted this encounter? (DM, HTN, Smoking, COPD, CAD, Cancer, CVA, ARF, Chemo, Hep., AIDS, mental health diagnosis, sleep apnea, morbid obesity)? @ -Diabetes, liver disease Was patient admitted / discharged? Hospital course, mention meds given and route, prescriptions, significant lab abnormalities, going to OR and other pertinent info. @ -Admitted patient is admitted to ICU for DKA, hyperkalemia, dehydration and severe metabolic acidosis. Patient has glucose greater than 1300, patient was given fluid bolus, started maintenance fluids, insulin drip. Patient does have significant hypokalemia with noted peaked T waves patient was given bicarb along with fluids and insulin. Patient is admitted ICU to Dr. Garg/Dr Whalen. Patient will have acute 4-hour laboratory studies Undiagnosed new problem with uncertain prognosis? @ -No Drug Therapy requiring intensive monitoring for toxicity (Heparin, Nitro, Insulin, Cardizem)? @ -No Were any procedures done? @ -No Diagnosis/symptom? @ -DKA, hypokalemia, dehydration, acute kidney injury Acute, or Chronic, or Acute on Chronic? @ -Acute Uncomplicated (without systemic symptoms) or Complicated (systemic symptoms)? @ -Comp gated Side effects of treatment? @ -No Exacerbation, Progression, or Severe Exacerbation? @ -No Poses a threat to life or bodily function? How? (Chest pain, USA, AK, pneumonia, PE, COPD, DKA, ARF, appy, cholecystitis, CVA, Diverticulitis, Homicidal, Suicidal, threat to staff... and all critical care pts) @ -Yes DKA, severe metabolic acidosis, threatened endorgan failure - Lab Data Result diagrams: 07/01/24 06:28 07/01/24 06:28 Lab Results 07/01/24 07/01/24 07/01/24 Range/Units 06:26 06:28 06:28 WBC 22.7 H (3.8-10.6) k/uL RBC 3.52 L (4.30-5.90) m/uL Hgb 11.1 L (13.0-17.5) gm/dL Hct 40.5 (39.0-53.0) % MCV 115.3 H (80.0-100.0) fL MCH 31.5 (25.0-35.0) pg MCHC 27.3 L (31.0-37.0) g/dL RDW 12.7 (11.5-15.5) % Plt Count 277 (150-450) k/uL MPV 9.1 Neutrophils % 78 % Lymphocytes % 13 % Monocytes % 7 % Eosinophils % 0 % Basophils % 0 % Neutrophils # 17.7 H (1.3-7.7) k/uL Lymphocytes # 3.0 (1.0-4.8) k/uL Monocytes # 1.6 H (0-1.0) k/uL Eosinophils # 0.0 (0-0.7) k/uL Basophils # 0.1 (0-0.2) k/uL Hypochromasia Marked Macrocytosis Marked A VBG pH (7.31-7.41) VBG pCO2 (37-51) mmHg VBG HCO3 (24-28) mmol/L Sodium 132 L (137-145) mmol/L Potassium 7.1 H* (3.5-5.1) mmol/L Chloride 93 L (98-107) mmol/L Carbon Dioxide <5 L* (22-30) mmol/L Anion Gap mmol/L BUN 44 H (9-20) mg/dL Creatinine 2.73 H (0.66-1.25) mg/dL Est GFR (CKD-EPI)AfAm 28 (>60 ml/min/1.73 sqM) Est GFR (CKD-EPI)NonAf 24 (>60 ml/min/1.73 sqM) Glucose 1344 H* (74-99) mg/dL POC Glucose (mg/dL) >600 H* (70-110) mg/dL POC Glu Recreational Therapist Mira Rios Plasma Lactic Acid Dexter (0.7-2.0) mmol/L Calcium 7.9 L (8.4-10.2) mg/dL Magnesium 2.6 H (1.6-2.3) mg/dL Total Bilirubin 0.4 (0.2-1.3) mg/dL AST 19 (17-59) U/L ALT 26 (4-49) U/L Alkaline Phosphatase 169 H (38-126) U/L Troponin I (0.000-0.034) ng/mL Total Protein 5.1 L (6.3-8.2) g/dL Albumin 3.5 (3.5-5.0) g/dL Lipase 297 (23-300) U/L Urine Color Urine Appearance (Clear) Urine pH (5.0-8.0) Ur Specific [place] (1.001-1.035) Urine Protein (Negative) Urine Glucose (UA) (Negative) Urine Ketones (Negative) Urine Blood (Negative) Urine Nitrite (Negative) Urine Bilirubin (Negative) Urine Urobilinogen (<2.0) mg/dL Ur Leukocyte Esterase (Negative) Urine RBC (0-5) /hpf Urine WBC (0-5) /hpf Ur Squamous Epith Cells (0-4) /hpf Urine Bacteria (None) /hpf Hyaline Casts (0-2) /lpf Urine Mucus (None) /hpf Acetone, Qual Positive (Negative) 07/01/24 07/01/24 07/01/24 Range/Units 06:28 06:28 06:28 WBC (3.8-10.6) k/uL RBC (4.30-5.90) m/uL Hgb (13.0-17.5) gm/dL Hct (39.0-53.0) % MCV (80.0-100.0) fL MCH (25.0-35.0) pg MCHC (31.0-37.0) g/dL RDW (11.5-15.5) % Plt Count (150-450) k/uL MPV Neutrophils % % Lymphocytes % % Monocytes % % Eosinophils % % Basophils % % Neutrophils # (1.3-7.7) k/uL Lymphocytes # (1.0-4.8) k/uL Monocytes # (0-1.0) k/uL Eosinophils # (0-0.7) k/uL Basophils # (0-0.2) k/uL Hypochromasia Macrocytosis VBG pH 6.91 L* (7.31-7.41) VBG pCO2 15 L* (37-51) mmHg VBG HCO3 3 L* (24-28) mmol/L Sodium (137-145) mmol/L Potassium (3.5-5.1) mmol/L Chloride (98-107) mmol/L Carbon Dioxide (22-30) mmol/L Anion Gap mmol/L BUN (9-20) mg/dL Creatinine (0.66-1.25) mg/dL Est GFR (CKD-EPI)AfAm (>60 ml/min/1.73 sqM) Est GFR (CKD-EPI)NonAf (>60 ml/min/1.73 sqM) Glucose (74-99) mg/dL POC Glucose (mg/dL) (70-110) mg/dL POC Glu Recreational Therapist ID Plasma Lactic Acid Dexter 5.0 H* (0.7-2.0) mmol/L Calcium (8.4-10.2) mg/dL Magnesium (1.6-2.3) mg/dL Total Bilirubin (0.2-1.3) mg/dL AST (17-59) U/L ALT (4-49) U/L Alkaline Phosphatase (38-126) U/L Troponin I <0.012 (0.000-0.034) ng/mL Total Protein (6.3-8.2) g/dL Albumin (3.5-5.0) g/dL Lipase (23-300) U/L Urine Color Urine Appearance (Clear) Urine pH (5.0-8.0) Ur Specific Gateway (1.001-1.035) Urine Protein (Negative) Urine Glucose (UA) (Negative) Urine Ketones (Negative) Urine Blood (Negative) Urine Nitrite (Negative) Urine Bilirubin (Negative) Urine Urobilinogen (<2.0) mg/dL Ur Leukocyte Esterase (Negative) Urine RBC (0-5) /hpf Urine WBC (0-5) /hpf Ur Squamous Epith Cells (0-4) /hpf Urine Bacteria (None) /hpf Hyaline Casts (0-2) /lpf Urine Mucus (None) /hpf Acetone, Qual (Negative) 07/01/24 07/01/24 07/01/24 Range/Units 06:52 07:38 08:34 WBC (3.8-10.6) k/uL RBC (4.30-5.90) m/uL Hgb (13.0-17.5) gm/dL Hct (39.0-53.0) % MCV (80.0-100.0) fL MCH (25.0-35.0) pg MCHC (31.0-37.0) g/dL RDW (11.5-15.5) % Plt Count (150-450) k/uL MPV Neutrophils % % Lymphocytes % % Monocytes % % Eosinophils % % Basophils % % Neutrophils # (1.3-7.7) k/uL Lymphocytes # (1.0-4.8) k/uL Monocytes # (0-1.0) k/uL Eosinophils # (0-0.7) k/uL Basophils # (0-0.2) k/uL Hypochromasia Macrocytosis VBG pH (7.31-7.41) VBG pCO2 (37-51) mmHg VBG HCO3 (24-28) mmol/L Sodium (137-145) mmol/L Potassium (3.5-5.1) mmol/L Chloride (98-107) mmol/L Carbon Dioxide (22-30) mmol/L Anion Gap mmol/L BUN (9-20) mg/dL Creatinine (0.66-1.25) mg/dL Est GFR (CKD-EPI)AfAm (>60 ml/min/1.73 sqM) Est GFR (CKD-EPI)NonAf (>60 ml/min/1.73 sqM) Glucose (74-99) mg/dL POC Glucose (mg/dL) >600 H* >600 H* (70-110) mg/dL POC Glu Recreational Therapist Melody Dubose Stephanie Plasma Lactic Acid Dexter (0.7-2.0) mmol/L Calcium (8.4-10.2) mg/dL Magnesium (1.6-2.3) mg/dL Total Bilirubin (0.2-1.3) mg/dL AST (17-59) U/L ALT (4-49) U/L Alkaline Phosphatase (38-126) U/L Troponin I (0.000-0.034) ng/mL Total Protein (6.3-8.2) g/dL Albumin (3.5-5.0) g/dL Lipase (23-300) U/L Urine Color Colorless Urine Appearance Clear (Clear) Urine pH 5.0 (5.0-8.0) Ur Specific [place] 1.019 (1.001-1.035) Urine Protein Trace H (Negative) Urine Glucose (UA) 4+ H (Negative) Urine Ketones 2+ H (Negative) Urine Blood Trace H (Negative) Urine Nitrite Negative (Negative) Urine Bilirubin Negative (Negative) Urine Urobilinogen <2.0 (<2.0) mg/dL Ur Leukocyte Esterase Negative (Negative) Urine RBC <1 (0-5) /hpf Urine WBC 1 (0-5) /hpf Ur Squamous Epith Cells <1 (0-4) /hpf Urine Bacteria Rare H (None) /hpf Hyaline Casts 25 H (0-2) /lpf Urine Mucus Rare H (None) /hpf Acetone, Qual (Negative) Critical Care Time Critical Care Time: Yes Total Critical Care Time: 35 Disposition Clinical Impression: Diabetic ketoacidosis, Acute encephalopathy, Dehydration, Hyperkalemia, Acute kidney injury, Leukocytosis Disposition: ADMITTED IP TO THIS [facility] Condition: Serious Referrals: Servando Whalen MD [Primary Care Provider] - 1-2 days Time of Disposition: 08:45
[2024-07-01] MEDS: SODIUM CHLORIDE 0.9% 500 ML 500 ML IV STA (06:38)
[2024-07-01 06:52] LABS: VBG PH 6.91 (7.31-7.41)
[2024-07-01] MEDS: INSULIN REGULAR 100 UNIT in SODIUM CHLORIDE 0.9% 100 ML IV SCH (06:56)
[2024-07-01 06:58] LABS: Basophils # (A) 0.1 k/uL (0-0.2); Basophils % (A) 0 %; Eosinophils % (A) 0 %; HCT 40.5 % (39.0-53.0); HGB 11.1 gm/dL (13.0-17.5); Hypochromasia Marked; Lymphocytes % (A) 13 %; MCH 31.5 pg (25.0-35.0); MCHC 27.3 g/dL (31.0-37.0); MCV 115.3 fL (80.0-100.0); Macrocytosis Marked; Mean Platelet Volume 9.1; Monocytes # (A) 1.6 k/uL (0-1.0); Monocytes % (A) 7 %; Neutrophils # (A) 17.7 k/uL (1.3-7.7); Neutrophils % (A) 78 %; Platelet Count 277 k/uL (150-450); RBC 3.52 m/uL (4.30-5.90); RDW 12.7 % (11.5-15.5); WBC 22.7 k/uL (3.8-10.6)
[2024-07-01] MEDS: SODIUM CHLORIDE 0.9% 1,000 ML IV SCH (06:58)
[2024-07-01 07:09] LABS: ALT 26 U/L (4-49); AST 19 U/L (17-59); African American GFR (CKD) 28 (>60 ml/min/1.73 sqM); Albumin 3.5 g/dL (3.5-5.0); Alkaline Phosphatase 169 U/L (38-126); Blood Urea Nitrogen 44 mg/dL (9-20); Calcium 7.9 mg/dL (8.4-10.2); Chloride 93 mmol/L (98-107); Lipase 297 U/L (23-300); Magnesium 2.6 mg/dL (1.6-2.3); Non-African American GFR(CKD) 24 (>60 ml/min/1.73 sqM); Sodium 132 mmol/L (137-145); Total Bilirubin 0.4 mg/dL (0.2-1.3); Total Protein 5.1 g/dL (6.3-8.2)
[2024-07-01 07:11] LABS: Appearance,Urine Clear (Clear); Bacteria,Urine Rare /hpf; Bilirubin,Urine Negative (Negative); Blood,Urine Trace (Negative); Color,Urine Colorless; Glucose,Urine (UA) 4+ (Negative); Hyaline Casts,Urine 25 /lpf (0-2); Leukocyte Esterase,Urine Negative (Negative); Mucus,Urine Rare /hpf; Nitrite,Urine Negative (Negative); Protein,Urine Trace (Negative); RBC,Urine <1 /hpf (0-5); Specific Gravity,Urine 1.019 (1.001-1.035); Squamous Epithelial Cell,Urine <1 /hpf (0-4); Urobilinogen,Urine <2.0 mg/dL (<2.0); WBC,Urine 1 /hpf (0-5)
--- NOTE | 2024-07-01 07:15 | XR ---
EXAMINATION TYPE: XR chest 1V portable DATE OF EXAM: 07/01/2024 COMPARISON: Chest CT April 06, 2024 HISTORY: Weakness. TECHNIQUE: Single frontal view of the chest is obtained. FINDINGS: There is no focal air space opacity, pleural effusion, or pneumothorax seen. The cardiac silhouette size remains within normal limits. Surgical change right humeral head is noted. IMPRESSION: No acute cardiopulmonary process. [facility], , 07/01/2024 7:13 AM
[2024-07-01 07:19] LABS: Ketones,Urine 2+ (Negative)
[2024-07-01 07:45] LABS: Glucose,Whole Blood >600 mg/dL (70-110)
[2024-07-01] MEDS: SODIUM BICARB 8.4% 50 ML SYR (1 MEQ/ML) IV ONE (08:08)
[2024-07-01] MEDS: CALCIUM GLUCONATE IN NACL 1 GM in SALINE 1 100ML.BAG IVPB ONE (08:22)
[2024-07-01 08:25] LABS: Carbon Dioxide <5 mmol/L (22-30); Potassium 7.1 mmol/L (3.5-5.1)
[2024-07-01 08:40] LABS: Glucose,Whole Blood >600 mg/dL (70-110)
[2024-07-01 09:50] LABS: Glucose,Whole Blood >600 mg/dL (70-110)
--- NOTE | 2024-07-01 10:40 | P.CNPUL ---
History of Present Illness Consult date: 07/01/24 Requesting physician: Servando Whalen Reason for consult: other Chief complaint: Diabetic ketoacidosis. History of present illness: Pulmonary consult dated July 01, 2024. 63-year-old male who presented to the emergency department, on July 01, at 6:30 in the morning, via EMS, with mental status changes. He apparently was found by his mother to be confused, and hyperglycemic. The patient presented with diabetic ketoacidosis. He was admitted to the intensive care unit for further monitoring and management. The patient is not a particularly good historian. His primary care physician is Dr. Whalen. He apparently has a history of diabetes, COPD, hyperlipidemia, hypertension, and osteoarthritis. The patient is currently on room air. He is getting insulin 4.67 units/h and s ulises at 200 cc an hour. Current labs include a white count 22.7, hemoglobin 11.1, hematocrit 40.5, and a normal platelet count. Venous blood gases showed a CO2 of 15, and a pH of 6.91. Sodium 132, potassium 7.1, chlorides 93,, dioxide less than 5, BUN 44, creatinine 2.73, glucose 1344, lactic acid 2.1, calcium 7.9. Urine shows trace protein, 4+ glucose, 2+ ketones, and trace blood. There is rare bacteria. Chest x-ray is negative. Review of Systems REVIEW OF SYSTEMS: CONSTITUTIONAL: [Negative.] NEUROLOGIC: Acute mental status changes. HEENT: [ Negative.] CARDIAC: [Negative.] PULMONARY: [Negative.] GI: [Negative.] : [Negative.] RHEUMATOLOGIC: [ Negative.] IMMUNOLOGIC: [ Negative.] ENDOCRINE: [Negative. ] DERMATOLOGIC: [Negative.] Past Medical History Past Medical History: COPD, Diabetes Mellitus, Hyperlipidemia, Hypertension, Osteoarthritis (OA), Vascular Disorder Additional Past Medical History / Comment(s): TENDONITIS RT ELBOW, "Cyst behind rt eye", right leg & foot pain- tx. " bad Teeth". PORRAS History of Any Multi-Drug Resistant Organisms: None Reported Past Surgical History: Orthopedic Surgery Additional Past Surgical History / Comment(s): testicular surgery, reconstructive surgery on left ring finger, rt shoulder rotator cuff, recent aortogram Past Anesthesia/Blood Transfusion Reactions: No Reported Reaction Date of Last Stent Placement:: 2022 Past Psychological History: Anxiety Smoking Status: Former smoker Past Alcohol Use History: Occasional Past Drug Use History: Marijuana - Past Family History Mother Family Medical History: Cancer Additional Family Medical History / Comment(s): LUNG CANCAR Medications and Allergies Home Medications Medication Instructions Recorded Confirmed Type ALPRAZolam [Xanax] 0.5 mg PO TID PRN 12/31/21 04/04/24 History Aspirin [Adult Low Dose Aspirin EC] 81 mg PO DAILY 12/31/21 04/04/24 History Clopidogrel [Plavix] 75 mg PO DAILY 12/14/23 04/04/24 History Insulin Aspart (Niacinamide) See Protocol SQ AC-TID 12/14/23 04/04/24 History [Fiasp 100 Unit/ml Vial] Metoprolol Succinate [Toprol XL] 50 mg PO DAILY 12/14/23 04/04/24 History Fluticasone/Umeclidin/Vilanter 1 puff INHALATION RT-DAILY 01/14/24 04/04/24 History [Trelegy Ellipta 200-62.5-25] Atorvastatin [Lipitor] 80 mg PO DAILY 04/04/24 04/04/24 History Lactulose 10 gm PO TID 04/04/24 04/04/24 History INSULIN ASPART (NovoLOG) [NovoLOG 0 unit SQ ACHS each 04/08/24 Rx (formulary)] Insulin Detemir (Levemir) [Levemir] 14 unit SQ HS each 04/08/24 Rx Levofloxacin [Levaquin] 250 mg PO DAILY 7 Days #7 tab 04/08/24 Rx Mometasone/Formoterol [Dulera 200 1 puff INHALATION BID 30 Days #13 04/08/24 Rx Mcg-5 Mcg Inhaler] gm Pantoprazole [Protonix] 40 mg PO AC-BID 90 Days #160 tab 04/08/24 Rx Allergies Allergy/AdvReac Type Severity Reaction Status Date / Time No Known Allergies Allergy Verified 07/01/24 06:35 Physical Exam Osteopathic Statement: *. No significant issues noted on an osteopathic structural exam other than those noted in the History and Physical/Consult. Vitals: Vital Signs Temp Pulse Resp BP Pulse Ox 07/01/24 10:00 97.6 F 112 H 28 H 112/54 98 07/01/24 09:39 99 07/01/24 09:08 94.1 F L 107 H 18 109/53 99 07/01/24 08:06 98 20 108/54 99 07/01/24 06:58 92.3 F L 96 20 101/54 100 07/01/24 06:24 96.9 F L 96 20 103/47 100 Intake and Output 06/30/24 07/01/24 07/01/24 22:59 06:59 14:59 Intake Total 1200 Output Total 330 Balance 870 Intake: IV 1200 1L bolus 1000 Sodium Chloride 0.9% 1, 200 000 ml @ 200 mls/hr IV . Q5H [facility] Rx#:[id number] Output: Urine 330 Other: Voiding Method Indwelling Catheter Weight 46.266 kg No acute distress, lethargic, somnolent, but able to answer basic questions. HEENT examination is grossly unremarkable. Mucous membranes are dry. Neck supple. Full range of motion. No adenopathy thyromegaly or neck vein distention. Cardiovascular examination reveals regular rhythm rate. S1-S2 normal. No S3 or S4. No discernible murmur noted. Lungs reveal mostly clear breath sounds. Minimal scattered rhonchi. No wheezes or crackles. Breath sounds equal. Abdomen soft bowel sounds are heard. No masses or tenderness. Extremities are intact. No cyanosis clubbing or edema. Skin is without rash or lesion. Neurologic examination is brief but nonfocal. Results - Laboratory Findings CBC and BMP: 07/01/24 06:28 07/01/24 06:28 Abnormal lab findings: Abnormal Labs 07/01/24 07/01/24 07/01/24 06:26 06:28 06:28 WBC 22.7 H RBC 3.52 L Hgb 11.1 L MCV 115.3 H MCHC 27.3 L Neutrophils # 17.7 H Monocytes # 1.6 H Macrocytosis Marked A VBG pH VBG pCO2 VBG HCO3 Sodium 132 L Potassium 7.1 H* Chloride 93 L Carbon Dioxide <5 L* BUN 44 H Creatinine 2.73 H Glucose 1344 H* POC Glucose (mg/dL) >600 H* Plasma Lactic Acid Dexter Calcium 7.9 L Magnesium 2.6 H Alkaline Phosphatase 169 H Total Protein 5.1 L Urine Protein Urine Glucose (UA) Urine Ketones Urine Blood Urine Bacteria Hyaline Casts Urine Mucus 07/01/24 07/01/24 07/01/24 06:28 06:28 06:52 WBC RBC Hgb MCV MCHC Neutrophils # Monocytes # Macrocytosis VBG pH 6.91 L* VBG pCO2 15 L* VBG HCO3 3 L* Sodium Potassium Chloride Carbon Dioxide BUN Creatinine Glucose POC Glucose (mg/dL) Plasma Lactic Acid Dexter 5.0 H* Calcium Magnesium Alkaline Phosphatase Total Protein Urine Protein Trace H Urine Glucose (UA) 4+ H Urine Ketones 2+ H Urine Blood Trace H Urine Bacteria Rare H Hyaline Casts 25 H Urine Mucus Rare H 07/01/24 07/01/24 07/01/24 07:38 08:34 09:37 WBC RBC Hgb MCV MCHC Neutrophils # Monocytes # Macrocytosis VBG pH VBG pCO2 VBG HCO3 Sodium Potassium Chloride Carbon Dioxide BUN Creatinine Glucose POC Glucose (mg/dL) >600 H* >600 H* >600 H* Plasma Lactic Acid Dexter Calcium Magnesium Alkaline Phosphatase Total Protein Urine Protein Urine Glucose (UA) Urine Ketones Urine Blood Urine Bacteria Hyaline Casts Urine Mucus 07/01/24 09:44 WBC RBC Hgb MCV MCHC Neutrophils # Monocytes # Macrocytosis VBG pH VBG pCO2 VBG HCO3 Sodium Potassium Chloride Carbon Dioxide BUN Creatinine Glucose POC Glucose (mg/dL) Plasma Lactic Acid Dexter 2.1 H* Calcium Magnesium Alkaline Phosphatase Total Protein Urine Protein Urine Glucose (UA) Urine Ketones Urine Blood Urine Bacteria Hyaline Casts Urine Mucus - Diagnostic Findings Chest x-ray: image reviewed Assessment and Plan Assessment: Acute diabetic ketoacidosis, in a patient with a longstanding history of diabetes. Acute mental status changes, secondary to metabolic encephalopathy. Anion gap metabolic acidosis. Mild lactic acidemia. Profound hyperglycemia. Acute kidney injury. History of COPD from previous tobacco use. History of hyperlipidemia. History of hypertension. History of osteoarthritis. Plan: Plan dated July 01, 2024. The patient is admitted to the intensive care unit for further monitoring and management. We will continue to follow the patient, make recommendations along the way. The patient was started on the DKA protocol. He is currently on insulin drip at 4.67 units an hour. He is getting saline at 200 cc an hour. He is on room air. Labs, x-rays, and medications are reviewed. No additional recommendations are made at this time. We will continue to follow. Prognosis is guarded. Time with Patient: Greater than 30
[2024-07-01] MEDS ORDERED: ALPRAZolam 0.5 MG TAB PO PRN (10:48)
[2024-07-01 11:04] LABS: Glucose,Whole Blood >600 mg/dL (70-110)
--- NOTE | 2024-07-01 11:49 | P.NPCON ---
History of Present Illness - Reason for Consult Consult date: 07/01/24 acute renal failure - Chief Complaint AMS - History of Present Illness 63-year-old male presents emerged part via EMS from home with altered mental status. Patient was found by mother confused, hypoglycemic reports that his Dexcom stopped working a few days ago. He is unsure when his last dose of insulin was. EMS did report that he did not have any complaints last night per patient. Patient has been in the hospital recently for DKA. Patient is a known diabetic. Patient is glucose reads high on glucometer. Patient is poor historian and history mainly obtained from chart. States he is feeling better than yesterday. Alert oriented x 3 Examination of the heart S1 and S2 Examination of the lungs bilateral breath sounds are heard Abdomen is soft nontender Examination of lower extremities shows no significant edema. ASSOCIATE CURATOR exam grossly intact Review of Systems Constitutional: Reports as per HPI Past Medical History Past Medical History: COPD, Diabetes Mellitus, Hyperlipidemia, Hypertension, Osteoarthritis (OA), Vascular Disorder Additional Past Medical History / Comment(s): TENDONITIS RT ELBOW, "Cyst behind rt eye", right leg & foot pain- tx. " bad Teeth". PORRAS History of Any Multi-Drug Resistant Organisms: None Reported Past Surgical History: Orthopedic Surgery Additional Past Surgical History / Comment(s): testicular surgery, reconstructive surgery on left ring finger, rt shoulder rotator cuff, recent aortogram Past Anesthesia/Blood Transfusion Reactions: No Reported Reaction Date of Last Stent Placement:: 2022 Past Psychological History: Anxiety Smoking Status: Former smoker Past Alcohol Use History: Occasional Past Drug Use History: Marijuana - Past Family History Mother Family Medical History: Cancer Additional Family Medical History / Comment(s): LUNG CANCAR Medications and Allergies Home Medications Medication Instructions Recorded Confirmed Type ALPRAZolam [Xanax] 0.5 mg PO TID PRN 12/31/21 04/04/24 History Aspirin [Adult Low Dose Aspirin EC] 81 mg PO DAILY 12/31/21 04/04/24 History Clopidogrel [Plavix] 75 mg PO DAILY 12/14/23 04/04/24 History Insulin Aspart (Niacinamide) See Protocol SQ AC-TID 12/14/23 04/04/24 History [Fiasp 100 Unit/ml Vial] Metoprolol Succinate [Toprol XL] 50 mg PO DAILY 12/14/23 04/04/24 History Fluticasone/Umeclidin/Vilanter 1 puff INHALATION RT-DAILY 01/14/24 04/04/24 History [Trelegy Ellipta 200-62.5-25] Atorvastatin [Lipitor] 80 mg PO DAILY 04/04/24 04/04/24 History Lactulose 10 gm PO TID 04/04/24 04/04/24 History INSULIN ASPART (NovoLOG) [NovoLOG 0 unit SQ ACHS each 04/08/24 Rx (formulary)] Insulin Detemir (Levemir) [Levemir] 14 unit SQ HS each 04/08/24 Rx Levofloxacin [Levaquin] 250 mg PO DAILY 7 Days #7 tab 04/08/24 Rx Mometasone/Formoterol [Dulera 200 1 puff INHALATION BID 30 Days #13 04/08/24 Rx Mcg-5 Mcg Inhaler] gm Pantoprazole [Protonix] 40 mg PO AC-BID 90 Days #160 tab 04/08/24 Rx Allergies Allergy/AdvReac Type Severity Reaction Status Date / Time No Known Allergies Allergy Verified 07/01/24 06:35 Physical Exam Vitals: Vital Signs Temp Pulse Resp BP Pulse Ox 07/01/24 09:39 99 07/01/24 09:08 94.1 F L 107 H 18 109/53 99 07/01/24 08:06 98 20 108/54 99 07/01/24 06:58 92.3 F L 96 20 101/54 100 07/01/24 06:24 96.9 F L 96 20 103/47 100 Intake and Output 06/30/24 07/01/24 07/01/24 22:59 06:59 14:59 Other: Weight 46.266 kg Results - Lab Results Most recent lab results Calcium 7.9 mg/dL (8.4-10.2) L 07/01/24 06:28 Magnesium 2.6 mg/dL (1.6-2.3) H 07/01/24 06:28 07/01/24 06:28 07/01/24 06:28 Assessment and Plan Assessment: 1. ARSEN likely Volume depletion from DKA. Baseline creatinine 0.4. Presented 2.7. UA hyaline casts with glucose and ketones. 2. Hyperkalemia due to ARSEN and hyprglycemia. 3. DKA 4. Hypernatremia due to dehydration with pseudohyponatremia related to hyperglycemia, corrected sodium for glucose 152. Plan: Continue aggressive IVF hydration and insulin drip. Potassium should improve with fluids and insulin. Strict I/O's, check PVR Serial electrolyte panels
[2024-07-01 12:02] LABS: Glucose,Whole Blood >600 mg/dL (70-110)
[2024-07-01] MEDS: IPRATROPIUM-ALBUTEROL 3 ML NEB INHALATION SCH (12:02)
[2024-07-01 12:59] LABS: African American GFR (CKD) 51 (>60 ml/min/1.73 sqM); Anion Gap 19 mmol/L; Blood Urea Nitrogen 39 mg/dL (9-20); Chloride 115 mmol/L (98-107); Non-African American GFR(CKD) 44 (>60 ml/min/1.73 sqM); Phosphorus 3.9 mg/dL (2.5-4.5); Potassium 3.9 mmol/L (3.5-5.1); Sodium 140 mmol/L (137-145)
[2024-07-01 13:14] LABS: Carbon Dioxide 6 mmol/L (22-30); Glucose 615 mg/dL (74-99)
[2024-07-01 14:07] LABS: Glucose,Whole Blood 435 mg/dL (70-110)
[2024-07-01 15:01] LABS: Glucose,Whole Blood 345 mg/dL (70-110)
[2024-07-01] MEDS: LACTULOSE 20 GM/30 ML CUP PO SCH (15:46)
[2024-07-01 15:57] LABS: Glucose,Whole Blood 292 mg/dL (70-110)
[2024-07-01] MEDS: D5-0.45% NACL WITH KCL 20MEQ/L 1,000 ML IV SCH ×2 (16:13→23:03)
[2024-07-01 16:38] LABS: African American GFR (CKD) 79 (>60 ml/min/1.73 sqM); Anion Gap 15 mmol/L; Blood Urea Nitrogen 34 mg/dL (9-20); Carbon Dioxide 16 mmol/L (22-30); Chloride 119 mmol/L (98-107); Glucose 293 mg/dL (74-99); Non-African American GFR(CKD) 68 (>60 ml/min/1.73 sqM); Potassium 3.7 mmol/L (3.5-5.1); Sodium 150 mmol/L (137-145)
[2024-07-01 17:02] LABS: Glucose,Whole Blood 270 mg/dL (70-110)
[2024-07-01] MEDS: PANTOPRAZOLE 40 MG TABLET PO SCH (17:24)
[2024-07-01 18:13] LABS: Glucose,Whole Blood 258 mg/dL (70-110)
[2024-07-01 19:06] LABS: Glucose,Whole Blood 217 mg/dL (70-110)
[2024-07-01 19:52] LABS: Glucose,Whole Blood 197 mg/dL (70-110)
[2024-07-01] MEDS ORDERED: Magnesium Replacement Protocol 1 EACH MISC MISCELLANE PRN (20:11)
[2024-07-01] MEDS ORDERED: Potassium Replacement Protocol 1 EACH MISC MISCELLANE PRN (20:11)
[2024-07-01 20:52] LABS: Glucose,Whole Blood 171 mg/dL (70-110)
[2024-07-01 21:02] LABS: ALT 28 U/L (4-49); AST 24 U/L (17-59); African American GFR (CKD) >90 (>60 ml/min/1.73 sqM); Albumin 3.4 g/dL (3.5-5.0); Alkaline Phosphatase 108 U/L (38-126); Anion Gap 4 mmol/L; Blood Urea Nitrogen 30 mg/dL (9-20); Calcium 8.6 mg/dL (8.4-10.2); Carbon Dioxide 22 mmol/L (22-30); Chloride 119 mmol/L (98-107); Glucose 194 mg/dL (74-99); Magnesium 2.4 mg/dL (1.6-2.3); Non-African American GFR(CKD) >90 (>60 ml/min/1.73 sqM); Phosphorus 2.4 mg/dL (2.5-4.5); Potassium 3.4 mmol/L (3.5-5.1); Sodium 145 mmol/L (137-145); Total Bilirubin 0.3 mg/dL (0.2-1.3); Total Protein 5.4 g/dL (6.3-8.2)
--- NOTE | 2024-07-01 21:55 | HP ---
HISTORY AND PHYSICAL HISTORY OF PRESENT ILLNESS: This is a 63-year-old white male altered mental status, mildly confused, hypocalcemic, been in the hospital recently for DKA a couple months ago. He had a glucometer on his thigh and on his arm, but he has not been using the last few days. He has nausea, vomiting. He has severe COPD. HOME MEDICATIONS: 1. Xanax 0.5 t.i.d. 2. Aspirin 81 daily. 3. Plavix 75 daily. 4. Insulin . 5. Levemir. 6. . 7. Trelegy inhaler. 8. Lipitor. 9. Lactulose. 10.Levaquin for last 7 days for sinus infection. 11.Dulera inhaler. 12.Protonix. ALLERGIES: Negative. REVIEW OF SYSTEMS: A 14-point review of systems otherwise negative. PAST MEDICAL HISTORY: Insulin-dependent diabetes mellitus type 1, COPD, hypertension, dyslipidemia, osteoarthritis, vascular disorder, tendinitis in the elbow, former smoker, anxiety, lung cancer. PHYSICAL EXAMINATION: VITAL SIGNS: Temperature 96.9, pulse in the low 90s, respiratory rate 18 to 20, Blood [id number] to 108 over 40 to 50, O2 99 to 100. GENERAL: Thin, cachectic. HEENT: Head is normocephalic and atraumatic. NEUROLOGIC: Cranial nerves intact. GI: Soft. CARDIOVASCULAR: S1 and S2. LUNGS: Decreased breath sounds, scattered wheeze. NECK: Supple. EKG, sinus rhythm. White count 22.7, hemoglobin is 11.1. Sugar is over 600. Magnesium is high at 2.6 and bilirubin 0.4. Urine, 4+ glucose, 2+ ketones. Sugar is 600 as mentioned above. ASSESSMENT: Diabetic ketoacidosis, encephalopathy secondary to DKA, dehydration, hyperkalemia, acute kidney injury, leukocytosis of unclear etiology, possibly due to vomiting. PROGNOSIS: Guarded. Please see further orders. MMODL / IJN: [id number] /
[2024-07-01 22:07] LABS: Glucose,Whole Blood 124 mg/dL (70-110)
[2024-07-01] MEDS: POTASSIUM CHLORIDE ER 20 MEQ TAB.ER PO SCH (22:16)
[2024-07-01] MEDS: INSULIN DETEMIR (LEVEMIR) 100 UNIT/ML SYR SQ SCH (22:17)
[2024-07-02 02:28] LABS: Glucose,Whole Blood 133 mg/dL (70-110)
[2024-07-02 06:09] LABS: Basophils % (A) 0 %; Eosinophils % (A) 0 %; HCT 31.9 % (39.0-53.0); HGB 10.2 gm/dL (13.0-17.5); Lymphocytes % (A) 10 %; MCH 29.8 pg (25.0-35.0); MCHC 31.8 g/dL (31.0-37.0); Mean Platelet Volume 7.7; Monocytes # (A) 0.8 k/uL (0-1.0); Monocytes % (A) 8 %; Neutrophils # (A) 8.2 k/uL (1.3-7.7); Neutrophils % (A) 80 %; Platelet Count 218 k/uL (150-450); RDW 12.8 % (11.5-15.5); WBC 10.2 k/uL (3.8-10.6)
[2024-07-02 06:28] LABS: MCV 93.8 fL (80.0-100.0)
[2024-07-02 06:32] LABS: ALT 28 U/L (4-49); AST 32 U/L (17-59); African American GFR (CKD) >90 (>60 ml/min/1.73 sqM); Albumin 3.2 g/dL (3.5-5.0); Alkaline Phosphatase 104 U/L (38-126); Anion Gap 4 mmol/L; Blood Urea Nitrogen 23 mg/dL (9-20); Calcium 8.7 mg/dL (8.4-10.2); Carbon Dioxide 23 mmol/L (22-30); Chloride 123 mmol/L (98-107); Glucose 58 mg/dL (74-99); Non-African American GFR(CKD) >90 (>60 ml/min/1.73 sqM); Potassium 3.8 mmol/L (3.5-5.1); Sodium 150 mmol/L (137-145); Total Bilirubin 0.3 mg/dL (0.2-1.3); Total Protein 5.3 g/dL (6.3-8.2)
[2024-07-02 06:56] LABS: Glucose,Whole Blood 46 mg/dL (70-110)
[2024-07-02 06:58] LABS: Glucose,Whole Blood 47 mg/dL (70-110)
[2024-07-02] MEDS: INSULIN ASPART (NovoLOG) 100 UNIT/ML VIAL SQ SCH (07:01)
[2024-07-02 07:18] LABS: Glucose,Whole Blood 57 mg/dL (70-110)
[2024-07-02 07:21] LABS: Glucose,Whole Blood 73 mg/dL (70-110)
[2024-07-02 08:45] LABS: Glucose,Whole Blood 143 mg/dL (70-110)
[2024-07-02] MEDS: POTASSIUM CHLORIDE ER 20 MEQ TAB.ER PO SCH (08:54)
[2024-07-02] MEDS: ASPIRIN 81 MG PO SCH (08:54)
[2024-07-02] MEDS: ATORVASTATIN 80 MG TAB PO SCH (08:54)
[2024-07-02] MEDS: METOPROLOL SUCCINATE (ER) 50 MG TAB.ER.24H PO SCH (08:54)
[2024-07-02] MEDS: CLOPIDOGREL 75 MG TAB PO SCH (08:54)
--- NOTE | 2024-07-02 10:33 | P.PN ---
Subjective Patient is seen in follow-up for acute kidney injury. Renal function back to baseline. Denies chest pain or shortness of breath. Currently off IV fluids. Insulin drip discontinued. Vital signs are stable. General: No acute distress. HEENT: Head exam is unremarkable. LUNGS: Scattered rhonchi. HEART: Rate and Rhythm are regular. Cut the ABDOMEN: Nontender. EXTREMITITES: No edema. Objective - Vital Signs Vital signs: Vital Signs Temp 99.3 F 07/02/24 08:00 Pulse 104 H 07/02/24 08:00 Resp 26 H 07/02/24 08:00 BP 134/83 07/02/24 08:00 Pulse Ox 97 07/02/24 08:00 FiO2 Intake & Output 07/01/24 07/02/24 07/02/24 18:59 06:59 18:59 Intake Total 2905.927 781.057 250 Output Total 1720 750 Balance 1185.927 31.057 250 Weight 46.266 kg 50.6 kg Intake: IV 2850 750 10 1L bolus 1000 D5-0.45% NaCl with KCl 450 750 20Meq/l 1,000 ml @ 150 mls/hr IV .[id number] [facility] Rx# :[id number] Invasive Line 1 10 Sodium Chloride 0.9% 1, 1400 000 ml @ 200 mls/hr IV . Q5H [facility] Rx#:[id number] Intake, IV Titration 55.927 31.057 Amount Insulin Regular 100 unit 55.927 31.057 In Sodium Chloride 0.9% 100 ml @ 0.1 UNITS/KG/HR 4.673 mls/hr IV .[id number] [facility] Rx#:[id number] Oral 240 Output: Urine 1720 750 Other: Voiding Method Indwelling Catheter Indwelling Catheter Urinal # Voids 2 # Bowel Movements 1 - Labs CBC & Chem 7: 07/02/24 05:34 07/02/24 05:34 Labs: Abnormal Lab Results - Last 24 Hours (Table) 07/01/24 07/01/24 07/01/24 Range/Units 11:02 12:00 12:20 RBC (4.30-5.90) m/uL Hgb (13.0-17.5) gm/dL Hct (39.0-53.0) % Neutrophils # (1.3-7.7) k/uL Sodium (137-145) mmol/L Potassium (3.5-5.1) mmol/L Chloride 115 H (98-107) mmol/L Carbon Dioxide 6 L* (22-30) mmol/L BUN 39 H (9-20) mg/dL Creatinine 1.64 H (0.66-1.25) mg/dL Glucose 615 H* (74-99) mg/dL POC Glucose (mg/dL) >600 H* >600 H* (70-110) mg/dL Hemoglobin A1c (<=6.0) % Phosphorus (2.5-4.5) mg/dL Magnesium (1.6-2.3) mg/dL Total Protein (6.3-8.2) g/dL Albumin (3.5-5.0) g/dL Procalcitonin (0.02-0.50) ng/mL 07/01/24 07/01/24 07/01/24 Range/Units 12:20 14:05 14:59 RBC (4.30-5.90) m/uL Hgb (13.0-17.5) gm/dL Hct (39.0-53.0) % Neutrophils # (1.3-7.7) k/uL Sodium (137-145) mmol/L Potassium (3.5-5.1) mmol/L Chloride (98-107) mmol/L Carbon Dioxide (22-30) mmol/L BUN (9-20) mg/dL Creatinine (0.66-1.25) mg/dL Glucose (74-99) mg/dL POC Glucose (mg/dL) 435 H 345 H (70-110) mg/dL Hemoglobin A1c (<=6.0) % Phosphorus (2.5-4.5) mg/dL Magnesium (1.6-2.3) mg/dL Total Protein (6.3-8.2) g/dL Albumin (3.5-5.0) g/dL Procalcitonin 3.56 H (0.02-0.50) ng/mL 07/01/24 07/01/24 07/01/24 Range/Units 15:54 16:12 17:01 RBC (4.30-5.90) m/uL Hgb (13.0-17.5) gm/dL Hct (39.0-53.0) % Neutrophils # (1.3-7.7) k/uL Sodium 150 H (137-145) mmol/L Potassium (3.5-5.1) mmol/L Chloride 119 H (98-107) mmol/L Carbon Dioxide 16 L (22-30) mmol/L BUN 34 H (9-20) mg/dL Creatinine (0.66-1.25) mg/dL Glucose 293 H (74-99) mg/dL POC Glucose (mg/dL) 292 H 270 H (70-110) mg/dL Hemoglobin A1c (<=6.0) % Phosphorus (2.5-4.5) mg/dL Magnesium (1.6-2.3) mg/dL Total Protein (6.3-8.2) g/dL Albumin (3.5-5.0) g/dL Procalcitonin (0.02-0.50) ng/mL 07/01/24 07/01/24 07/01/24 Range/Units 18:11 18:54 19:50 RBC (4.30-5.90) m/uL Hgb (13.0-17.5) gm/dL Hct (39.0-53.0) % Neutrophils # (1.3-7.7) k/uL Sodium (137-145) mmol/L Potassium (3.5-5.1) mmol/L Chloride (98-107) mmol/L Carbon Dioxide (22-30) mmol/L BUN (9-20) mg/dL Creatinine (0.66-1.25) mg/dL Glucose (74-99) mg/dL POC Glucose (mg/dL) 258 H 217 H 197 H (70-110) mg/dL Hemoglobin A1c (<=6.0) % Phosphorus (2.5-4.5) mg/dL Magnesium (1.6-2.3) mg/dL Total Protein (6.3-8.2) g/dL Albumin (3.5-5.0) g/dL Procalcitonin (0.02-0.50) ng/mL 07/01/24 07/01/24 07/01/24 Range/Units 20:12 20:51 22:06 RBC (4.30-5.90) m/uL Hgb (13.0-17.5) gm/dL Hct (39.0-53.0) % Neutrophils # (1.3-7.7) k/uL Sodium (137-145) mmol/L Potassium 3.4 L (3.5-5.1) mmol/L Chloride 119 H (98-107) mmol/L Carbon Dioxide (22-30) mmol/L BUN 30 H (9-20) mg/dL Creatinine (0.66-1.25) mg/dL Glucose 194 H (74-99) mg/dL POC Glucose (mg/dL) 171 H 124 H (70-110) mg/dL Hemoglobin A1c (<=6.0) % Phosphorus 2.4 L (2.5-4.5) mg/dL Magnesium 2.4 H (1.6-2.3) mg/dL Total Protein 5.4 L (6.3-8.2) g/dL Albumin 3.4 L (3.5-5.0) g/dL Procalcitonin (0.02-0.50) ng/mL 07/02/24 07/02/24 07/02/24 Range/Units 02:27 05:34 05:34 RBC 3.40 L (4.30-5.90) m/uL Hgb 10.2 L (13.0-17.5) gm/dL Hct 31.9 L (39.0-53.0) % Neutrophils # 8.2 H (1.3-7.7) k/uL Sodium 150 H (137-145) mmol/L Potassium (3.5-5.1) mmol/L Chloride 123 H (98-107) mmol/L Carbon Dioxide (22-30) mmol/L BUN 23 H (9-20) mg/dL Creatinine 0.57 L (0.66-1.25) mg/dL Glucose 58 L (74-99) mg/dL POC Glucose (mg/dL) 133 H (70-110) mg/dL Hemoglobin A1c (<=6.0) % Phosphorus (2.5-4.5) mg/dL Magnesium (1.6-2.3) mg/dL Total Protein 5.3 L (6.3-8.2) g/dL Albumin 3.2 L (3.5-5.0) g/dL Procalcitonin (0.02-0.50) ng/mL 07/02/24 07/02/24 07/02/24 Range/Units 05:34 06:55 06:56 RBC (4.30-5.90) m/uL Hgb (13.0-17.5) gm/dL Hct (39.0-53.0) % Neutrophils # (1.3-7.7) k/uL Sodium (137-145) mmol/L Potassium (3.5-5.1) mmol/L Chloride (98-107) mmol/L Carbon Dioxide (22-30) mmol/L BUN (9-20) mg/dL Creatinine (0.66-1.25) mg/dL Glucose (74-99) mg/dL POC Glucose (mg/dL) 46 L* 47 L* (70-110) mg/dL Hemoglobin A1c 13.0 H (<=6.0) % Phosphorus (2.5-4.5) mg/dL Magnesium (1.6-2.3) mg/dL Total Protein (6.3-8.2) g/dL Albumin (3.5-5.0) g/dL Procalcitonin (0.02-0.50) ng/mL 07/02/24 07/02/24 Range/Units 07:07 08:43 RBC (4.30-5.90) m/uL Hgb (13.0-17.5) gm/dL Hct (39.0-53.0) % Neutrophils # (1.3-7.7) k/uL Sodium (137-145) mmol/L Potassium (3.5-5.1) mmol/L Chloride (98-107) mmol/L Carbon Dioxide (22-30) mmol/L BUN (9-20) mg/dL Creatinine (0.66-1.25) mg/dL Glucose (74-99) mg/dL POC Glucose (mg/dL) 57 L 143 H (70-110) mg/dL Hemoglobin A1c (<=6.0) % Phosphorus (2.5-4.5) mg/dL Magnesium (1.6-2.3) mg/dL Total Protein (6.3-8.2) g/dL Albumin (3.5-5.0) g/dL Procalcitonin (0.02-0.50) ng/mL Assessment and Plan Plan: Assessment: 1. Acute kidney injury secondary to vasomotor nephropathy secondary to DKA. Resolved. 2. Hyponatremia from lack of oral water intake. 3. Uncontrolled diabetes mellitus. Hemoglobin A1c 13%. 4. Hyperkalemia secondary to hyperglycemia. Resolved. 5. Metabolic acidosis secondary to DKA. Resolved. Plan: Encouraged oral intake, including free water. Check sodium level now. If still elevated, will start D5W. Avoid nephrotoxins. Replace electrolytes as needed.
[2024-07-02 11:37] LABS: Glucose,Whole Blood 111 mg/dL (70-110)
--- NOTE | 2024-07-02 16:03 | P.PN ---
Subjective Progress Note Date: 07/02/24 63-year-old male who presented to the emergency department, on July 01, at 6:30 in the morning, via EMS, with mental status changes. He apparently was found by his mother to be confused, and hyperglycemic. The patient presented with diabetic ketoacidosis. He was admitted to the intensive care unit for further monitoring and management. The patient is not a particularly good historian. His primary care physician is Dr. Whalen. He apparently has a history of diabetes, COPD, hyperlipidemia, hypertension, and osteoarthritis. The patient is currently on room air. He is getting insulin 4.67 units/h and saline at 200 cc an hour. Current labs include a white count 22.7, hemoglobin 11.1, hematocrit 40.5, and a normal platelet count. Venous blood gases showed a CO2 of 15, and a pH of 6.91. Sodium 132, potassium 7.1, chlorides 93,, dioxide less than 5, BUN 44, creatinine 2.73, glucose 1344, lactic acid 2.1, calcium 7.9. Urine shows trace protein, 4+ glucose, 2+ ketones, and trace blood. There is rare bacteria. Chest x-ray is negative. On 07/02/2024, the patient is being seen for a follow-up. This patient is currently in the intensive care unit being treated for an acute DKA. The patient presented to us with mental status change and profound hyperglycemia along with anion gap metabolic acidosis. At this point in time, the patient is on Levemir insulin started 25 units daily along with NovoLog sliding scale coverage. The patient did encounter an episode of hypoglycemia and this was treated accordingly. He is provided diet. The most recent blood work from this morning shows a gap of 4 with a serum bicarb of 23, sodium levels at 150 and the patient is stable to take oral fluids and diet. Lisandro Parker is a 10.2 today with support and a platelet count of 218. Clinically stable. Hemodynamic stable. Afebrile. He is on room air oxygen with a pulse ox of 97%. He remains on Plavix. He remains on Toprol. He remains on Protonix 40 mg p.o. twice a day. Awake and alert and communicating. No focal neurological deficit at this point in time. He has also recovered from his acute kidney injury. Objective - Vital Signs Vital signs: Vital Signs Temp 99.3 F 07/02/24 08:00 Pulse 104 H 07/02/24 08:00 Resp 26 H 07/02/24 08:00 BP 134/83 07/02/24 08:00 Pulse Ox 97 07/02/24 08:00 FiO2 Intake & Output 07/01/24 07/02/24 07/02/24 18:59 06:59 18:59 Intake Total 2905.927 781.057 250 Output Total 1720 750 Balance 1185.927 31.057 250 Weight 46.266 kg 50.6 kg Intake: IV 2850 750 10 1L bolus 1000 D5-0.45% NaCl with KCl 450 750 20Meq/l 1,000 ml @ 150 mls/hr IV .[id number] [facility] Rx# :[id number] Invasive Line 1 10 Sodium Chloride 0.9% 1, 1400 000 ml @ 200 mls/hr IV . Q5H [facility] Rx#:[id number] Intake, IV Titration 55.927 31.057 Amount Insulin Regular 100 unit 55.927 31.057 In Sodium Chloride 0.9% 100 ml @ 0.1 UNITS/KG/HR 4.673 mls/hr IV .[id number] [facility] Rx#:[id number] Oral 240 Output: Urine 1720 750 Other: Voiding Method Indwelling Catheter Indwelling Catheter Urinal # Voids 2 # Bowel Movements 1 - Exam No acute distress, lethargic, able to communicate. No focal neurological deficits. HEENT examination is grossly unremarkable. Mucous membranes are dry. Neck supple. Full range of motion. No adenopathy thyromegaly or neck vein distention. Cardiovascular examination reveals regular rhythm rate. S1-S2 normal. No S3 or S4. No discernible murmur noted. Lungs reveal mostly clear breath sounds. Minimal scattered rhonchi. No wheezes or crackles. Breath sounds equal. Abdomen soft bowel sounds are heard. No masses or tenderness. Extremities are intact. No cyanosis clubbing or edema. Skin is without rash or lesion. Neurologic examination is brief but nonfocal. - Labs CBC & Chem 7: 07/02/24 05:34 07/02/24 10:19 Labs: Abnormal Lab Results - Last 24 Hours (Table) 07/01/24 07/01/24 07/01/24 Range/Units 09:44 11:02 12:00 RBC (4.30-5.90) m/uL Hgb (13.0-17.5) gm/dL Hct (39.0-53.0) % Neutrophils # (1.3-7.7) k/uL Sodium (137-145) mmol/L Potassium (3.5-5.1) mmol/L Chloride (98-107) mmol/L Carbon Dioxide (22-30) mmol/L BUN (9-20) mg/dL Creatinine (0.66-1.25) mg/dL Glucose (74-99) mg/dL POC Glucose (mg/dL) >600 H* >600 H* (70-110) mg/dL Hemoglobin A1c (<=6.0) % Plasma Lactic Acid Dexter 2.1 H* (0.7-2.0) mmol/L Phosphorus (2.5-4.5) mg/dL Magnesium (1.6-2.3) mg/dL Total Protein (6.3-8.2) g/dL Albumin (3.5-5.0) g/dL Procalcitonin (0.02-0.50) ng/mL 07/01/24 07/01/24 07/01/24 Range/Units 12:20 12:20 14:05 RBC (4.30-5.90) m/uL Hgb (13.0-17.5) gm/dL Hct (39.0-53.0) % Neutrophils # (1.3-7.7) k/uL Sodium (137-145) mmol/L Potassium (3.5-5.1) mmol/L Chloride 115 H (98-107) mmol/L Carbon Dioxide 6 L* (22-30) mmol/L BUN 39 H (9-20) mg/dL Creatinine 1.64 H (0.66-1.25) mg/dL Glucose 615 H* (74-99) mg/dL POC Glucose (mg/dL) 435 H (70-110) mg/dL Hemoglobin A1c (<=6.0) % Plasma Lactic Acid Dexter (0.7-2.0) mmol/L Phosphorus (2.5-4.5) mg/dL Magnesium (1.6-2.3) mg/dL Total Protein (6.3-8.2) g/dL Albumin (3.5-5.0) g/dL Procalcitonin 3.56 H (0.02-0.50) ng/mL 07/01/24 07/01/24 07/01/24 Range/Units 14:59 15:54 16:12 RBC (4.30-5.90) m/uL Hgb (13.0-17.5) gm/dL Hct (39.0-53.0) % Neutrophils # (1.3-7.7) k/uL Sodium 150 H (137-145) mmol/L Potassium (3.5-5.1) mmol/L Chloride 119 H (98-107) mmol/L Carbon Dioxide 16 L (22-30) mmol/L BUN 34 H (9-20) mg/dL Creatinine (0.66-1.25) mg/dL Glucose 293 H (74-99) mg/dL POC Glucose (mg/dL) 345 H 292 H (70-110) mg/dL Hemoglobin A1c (<=6.0) % Plasma Lactic Acid Dexter (0.7-2.0) mmol/L Phosphorus (2.5-4.5) mg/dL Magnesium (1.6-2.3) mg/dL Total Protein (6.3-8.2) g/dL Albumin (3.5-5.0) g/dL Procalcitonin (0.02-0.50) ng/mL 07/01/24 07/01/24 07/01/24 Range/Units 17:01 18:11 18:54 RBC (4.30-5.90) m/uL Hgb (13.0-17.5) gm/dL Hct (39.0-53.0) % Neutrophils # (1.3-7.7) k/uL Sodium (137-145) mmol/L Potassium (3.5-5.1) mmol/L Chloride (98-107) mmol/L Carbon Dioxide (22-30) mmol/L BUN (9-20) mg/dL Creatinine (0.66-1.25) mg/dL Glucose (74-99) mg/dL POC Glucose (mg/dL) 270 H 258 H 217 H (70-110) mg/dL Hemoglobin A1c (<=6.0) % Plasma Lactic Acid Dexter (0.7-2.0) mmol/L Phosphorus (2.5-4.5) mg/dL Magnesium (1.6-2.3) mg/dL Total Protein (6.3-8.2) g/dL Albumin (3.5-5.0) g/dL Procalcitonin (0.02-0.50) ng/mL 07/01/24 07/01/24 07/01/24 Range/Units 19:50 20:12 20:51 RBC (4.30-5.90) m/uL Hgb (13.0-17.5) gm/dL Hct (39.0-53.0) % Neutrophils # (1.3-7.7) k/uL Sodium (137-145) mmol/L Potassium 3.4 L (3.5-5.1) mmol/L Chloride 119 H (98-107) mmol/L Carbon Dioxide (22-30) mmol/L BUN 30 H (9-20) mg/dL Creatinine (0.66-1.25) mg/dL Glucose 194 H (74-99) mg/dL POC Glucose (mg/dL) 197 H 171 H (70-110) mg/dL Hemoglobin A1c (<=6.0) % Plasma Lactic Acid Dexter (0.7-2.0) mmol/L Phosphorus 2.4 L (2.5-4.5) mg/dL Magnesium 2.4 H (1.6-2.3) mg/dL Total Protein 5.4 L (6.3-8.2) g/dL Albumin 3.4 L (3.5-5.0) g/dL Procalcitonin (0.02-0.50) ng/mL 07/01/24 07/02/24 07/02/24 Range/Units 22:06 02:27 05:34 RBC 3.40 L (4.30-5.90) m/uL Hgb 10.2 L (13.0-17.5) gm/dL Hct 31.9 L (39.0-53.0) % Neutrophils # 8.2 H (1.3-7.7) k/uL Sodium (137-145) mmol/L Potassium (3.5-5.1) mmol/L Chloride (98-107) mmol/L Carbon Dioxide (22-30) mmol/L BUN (9-20) mg/dL Creatinine (0.66-1.25) mg/dL Glucose (74-99) mg/dL POC Glucose (mg/dL) 124 H 133 H (70-110) mg/dL Hemoglobin A1c (<=6.0) % Plasma Lactic Acid Dexter (0.7-2.0) mmol/L Phosphorus (2.5-4.5) mg/dL Magnesium (1.6-2.3) mg/dL Total Protein (6.3-8.2) g/dL Albumin (3.5-5.0) g/dL Procalcitonin (0.02-0.50) ng/mL 07/02/24 07/02/24 07/02/24 Range/Units 05:34 05:34 06:55 RBC (4.30-5.90) m/uL Hgb (13.0-17.5) gm/dL Hct (39.0-53.0) % Neutrophils # (1.3-7.7) k/uL Sodium 150 H (137-145) mmol/L Potassium (3.5-5.1) mmol/L Chloride 123 H (98-107) mmol/L Carbon Dioxide (22-30) mmol/L BUN 23 H (9-20) mg/dL Creatinine 0.57 L (0.66-1.25) mg/dL Glucose 58 L (74-99) mg/dL POC Glucose (mg/dL) 46 L* (70-110) mg/dL Hemoglobin A1c 13.0 H (<=6.0) % Plasma Lactic Acid Dexter (0.7-2.0) mmol/L Phosphorus (2.5-4.5) mg/dL Magnesium (1.6-2.3) mg/dL Total Protein 5.3 L (6.3-8.2) g/dL Albumin 3.2 L (3.5-5.0) g/dL Procalcitonin (0.02-0.50) ng/mL 07/02/24 07/02/24 07/02/24 Range/Units 06:56 07:07 08:43 RBC (4.30-5.90) m/uL Hgb (13.0-17.5) gm/dL Hct (39.0-53.0) % Neutrophils # (1.3-7.7) k/uL Sodium (137-145) mmol/L Potassium (3.5-5.1) mmol/L Chloride (98-107) mmol/L Carbon Dioxide (22-30) mmol/L BUN (9-20) mg/dL Creatinine (0.66-1.25) mg/dL Glucose (74-99) mg/dL POC Glucose (mg/dL) 47 L* 57 L 143 H (70-110) mg/dL Hemoglobin A1c (<=6.0) % Plasma Lactic Acid Dexter (0.7-2.0) mmol/L Phosphorus (2.5-4.5) mg/dL Magnesium (1.6-2.3) mg/dL Total Protein (6.3-8.2) g/dL Albumin (3.5-5.0) g/dL Procalcitonin (0.02-0.50) ng/mL Assessment and Plan Plan: Acute diabetic ketoacidosis, recovered and the patient is currently on Levemir insulin 25 units daily along with a slight scale coverage. Acute mental status changes, secondary to metabolic encephalopathy, improved Anion gap metabolic acidosis, recovered Mild lactic acidemia, secondary to above Hypernatremia, hyperchloremic Acute kidney injury, recovered History of COPD from previous tobacco use. History of hyperlipidemia. History of hypertension. History of osteoarthritis. Plan: Patient is currently on room air oxygen Increase and encourage oral intake Monitor blood sugars Patient having this patient to Levemir insulin 25 units daily NovoLog/scale coverage Monitor sodium level and the rest of the electrolytes Should be able to transfer out of the intensive care unit. Will continue to follow.
[2024-07-02 16:38] LABS: Glucose,Whole Blood 245 mg/dL (70-110)
[2024-07-02 19:43] LABS: Glucose,Whole Blood 246 mg/dL (70-110)
[2024-07-02 20:46] LABS: Glucose,Whole Blood 289 mg/dL (70-110)
[2024-07-02] MEDS: INSULIN DETEMIR (LEVEMIR) 100 UNIT/ML SYR SQ SCH (20:47)
[2024-07-03 02:43] LABS: Glucose,Whole Blood 40 mg/dL (70-110)
[2024-07-03 02:56] LABS: Glucose,Whole Blood 37 mg/dL (70-110)
[2024-07-03 03:11] LABS: Glucose,Whole Blood 58 mg/dL (70-110)
[2024-07-03] MEDS: DEXTROSE 50% SYRINGE 50 ML IVP PRN (03:16)
[2024-07-03 03:27] LABS: Glucose,Whole Blood 219 mg/dL (70-110)
[2024-07-03 05:52] LABS: Basophils % (A) 0 %; Eosinophils % (A) 0 %; HCT 33.2 % (39.0-53.0); HGB 10.7 gm/dL (13.0-17.5); Lymphocytes # (A) 1.6 k/uL (1.0-4.8); Lymphocytes % (A) 17 %; MCH 30.9 pg (25.0-35.0); MCHC 32.3 g/dL (31.0-37.0); Mean Platelet Volume 7.7; Monocytes # (A) 0.5 k/uL (0-1.0); Monocytes % (A) 5 %; Neutrophils # (A) 6.9 k/uL (1.3-7.7); Neutrophils % (A) 75 %; Platelet Count 177 k/uL (150-450); RBC 3.46 m/uL (4.30-5.90); RDW 12.9 % (11.5-15.5); WBC 9.2 k/uL (3.8-10.6)
[2024-07-03 06:01] LABS: ALT 34 U/L (4-49); AST 64 U/L (17-59); African American GFR (CKD) >90 (>60 ml/min/1.73 sqM); Alkaline Phosphatase 89 U/L (38-126); Anion Gap 7 mmol/L; Blood Urea Nitrogen 9 mg/dL (9-20); Carbon Dioxide 26 mmol/L (22-30); Chloride 108 mmol/L (98-107); Glucose 100 mg/dL (74-99); Non-African American GFR(CKD) >90 (>60 ml/min/1.73 sqM); Potassium 3.8 mmol/L (3.5-5.1); Sodium 141 mmol/L (137-145); Total Bilirubin 0.5 mg/dL (0.2-1.3); Total Protein 5.3 g/dL (6.3-8.2)
[2024-07-03 06:26] LABS: Glucose,Whole Blood 84 mg/dL (70-110)
[2024-07-03] MEDS: METOPROLOL SUCCINATE (ER) 25 MG TAB.ER.24H PO SCH (08:02)
[2024-07-03 11:08] VITALS: BMI 14.9
[2024-07-03 12:07] LABS: Glucose,Whole Blood 90 mg/dL (70-110)
--- NOTE | 2024-07-03 13:26 | P.PN ---
Subjective Progress Note Date: 07/03/24 63-year-old male who presented to the emergency department, on July 01, at 6:30 in the morning, via EMS, with mental status changes. He apparently was found by his mother to be confused, and hyperglycemic. The patient presented with diabetic ketoacidosis. He was admitted to the intensive care unit for further monitoring and management. The patient is not a particularly good historian. His primary care physician is Dr. Whalen. He apparently has a history of diabetes, COPD, hyperlipidemia, hypertension, and osteoarthritis. The patient is currently on room air. He is getting insulin 4.67 units/h and saline at 200 cc an hour. Current labs include a white count 22.7, hemoglobin 11.1, hematocrit 40.5, and a normal platelet count. Venous blood gases showed a CO2 of 15, and a pH of 6.91. Sodium 132, potassium 7.1, chlorides 93,, dioxide less than 5, BUN 44, creatinine 2.73, glucose 1344, lactic acid 2.1, calcium 7.9. Urine shows trace protein, 4+ glucose, 2+ ketones, and trace blood. There is rare bacteria. Chest x-ray is negative. On 07/02/2024, the patient is being seen for a follow-up. This patient is currently in the intensive care unit being treated for an acute DKA. The patient presented to us with mental status change and profound hyperglycemia along with anion gap metabolic acidosis. At this point in time, the patient is on Levemir insulin started 25 units daily along with NovoLog sliding scale coverage. The patient did encounter an episode of hypoglycemia and this was treated accordingly. He is provided diet. The most recent blood work from this morning shows a gap of 4 with a serum bicarb of 23, sodium levels at 150 and the patient is stable to take oral fluids and diet. Lisandro Parker is a 10.2 today with support and a platelet count of 218. Clinically stable. Hemodynamic stable. Afebrile. He is on room air oxygen with a pulse ox of 97%. He remains on Plavix. He remains on Toprol. He remains on Protonix 40 mg p.o. twice a day. Awake and alert and communicating. No focal neurological deficit at this point in time. He has also recovered from his acute kidney injury. On 07/03/2024, the patient is being seen for a follow-up. The patient is sitting up in a chair. Calm and comfortable. No significant complaints. Unable to tolerate his diet. He is on Levemir insulin 10 units daily along with NovoLog sliding scale coverage. No episodes of hypoglycemia. Sodium levels at 141, serum bicarb is at 26 with an anion gap of 7 and a potassium of 3.8. Hemoglobin 10.7 with a white cell count of 9.2. He is on room air oxygen with a pulse ox of 98%. Hemodynamically stable. No respiratory distress. No other complaints otherwise for now. Objective - Vital Signs Vital signs: Vital Signs Temp 98.5 F 07/03/24 08:00 Pulse 99 07/03/24 08:00 Resp 14 07/03/24 08:00 BP 120/70 07/03/24 08:00 Pulse Ox 98 07/03/24 08:00 FiO2 Intake & Output 07/02/24 07/03/24 07/03/24 18:59 06:59 18:59 Intake Total 490 2009 Output Total 400 Balance 490 1610 Weight 50 kg Intake: IV 10 10 Invasive Line 1 10 10 Oral 480 2000 Output: Urine 400 Other: Voiding Method Urinal Urinal Urinal # Voids 3 3 # Bowel Movements 2 - Exam No acute distress, lethargic, able to communicate. No focal neurological deficits. HEENT examination is grossly unremarkable. Mucous membranes are dry. Neck supple. Full range of motion. No adenopathy thyromegaly or neck vein distention. Cardiovascular examination reveals regular rhythm rate. S1-S2 normal. No S3 or S4. No discernible murmur noted. Lungs reveal mostly clear breath sounds. Minimal scattered rhonchi. No wheezes or crackles. Breath sounds equal. Abdomen soft bowel sounds are heard. No masses or tenderness. Extremities are intact. No cyanosis clubbing or edema. Skin is without rash or lesion. Neurologic examination is brief but nonfocal. - Labs CBC & Chem 7: 07/03/24 05:32 07/03/24 05:32 Labs: Abnormal Lab Results - Last 24 Hours (Table) 07/02/24 07/02/24 07/02/24 Range/Units 11:35 16:36 19:42 RBC (4.30-5.90) m/uL Hgb (13.0-17.5) gm/dL Hct (39.0-53.0) % Chloride (98-107) mmol/L Creatinine (0.66-1.25) mg/dL Glucose (74-99) mg/dL POC Glucose (mg/dL) 111 H 245 H 246 H (70-110) mg/dL AST (17-59) U/L Total Protein (6.3-8.2) g/dL Albumin (3.5-5.0) g/dL 07/02/24 07/03/24 07/03/24 Range/Units 20:44 02:41 02:54 RBC (4.30-5.90) m/uL Hgb (13.0-17.5) gm/dL Hct (39.0-53.0) % Chloride (98-107) mmol/L Creatinine (0.66-1.25) mg/dL Glucose (74-99) mg/dL POC Glucose (mg/dL) 289 H 40 L* 37 L* (70-110) mg/dL AST (17-59) U/L Total Protein (6.3-8.2) g/dL Albumin (3.5-5.0) g/dL 07/03/24 07/03/24 07/03/24 Range/Units 03:10 03:25 05:32 RBC 3.46 L (4.30-5.90) m/uL Hgb 10.7 L (13.0-17.5) gm/dL Hct 33.2 L (39.0-53.0) % Chloride (98-107) mmol/L Creatinine (0.66-1.25) mg/dL Glucose (74-99) mg/dL POC Glucose (mg/dL) 58 L 219 H (70-110) mg/dL AST (17-59) U/L Total Protein (6.3-8.2) g/dL Albumin (3.5-5.0) g/dL 07/03/24 Range/Units 05:32 RBC (4.30-5.90) m/uL Hgb (13.0-17.5) gm/dL Hct (39.0-53.0) % Chloride 108 H (98-107) mmol/L Creatinine 0.41 L (0.66-1.25) mg/dL Glucose 100 H (74-99) mg/dL POC Glucose (mg/dL) (70-110) mg/dL AST 64 H (17-59) U/L Total Protein 5.3 L (6.3-8.2) g/dL Albumin 3.0 L (3.5-5.0) g/dL Microbiology - Last 24 Hours (Table) 07/01/24 11:53 Urine Culture - Final Urine,Catheterized Assessment and Plan Plan: Acute diabetic ketoacidosis, recovered and the patient is currently on Levemir insulin 10 units daily plus a sliding scale coverage, and this was started a lower dose as the patient was having episodes of lower blood sugar. He is able to tolerate oral intake. Acute mental status changes, secondary to metabolic encephalopathy, recovered Anion gap metabolic acidosis, recovered Mild lactic acidemia, secondary to above Hypernatremia, hyperchloremic Acute kidney injury, recovered History of COPD from previous tobacco use. History of hyperlipidemia. History of hypertension. History of osteoarthritis. Plan: Patient is currently on room air oxygen Increase and encourage oral intake Monitor blood sugars Patient having this patient to Levemir insulin 10 units daily, no evidence of any hypoglycemia NovoLog/scale coverage Monitor sodium level and the rest of the electrolytes Should be able to transfer out of the intensive care unit. Will continue to follow.
[2024-07-03 16:21] VITALS: BP 139/82; RESP 18; TEMP 98.6
[2024-07-03 16:35] VITALS: PULSE 95
[2024-07-03] MEDS ORDERED: INSULIN DETEMIR (LEVEMIR) 100 UNIT/ML SYR SQ SCH (21:00)
--- NOTE | 2024-07-05 14:47 | PN ---
PROGRESS NOTE Patient admitted with diabetic ketoacidosis, dehydration, acute on chronic renal insufficiency. He is more alert today. His renal function back to baseline. Denies shortness of breath. Insulin drip is discontinued. OBJECTIVE: VITAL SIGNS: Blood pressure 134/83, pulse 104, respiratory rate 20 to 26, temp 99.3. CARDIOVASCULAR: S1, S2. LUNGS: Transmitted upper sounds. GI: Soft. HEMATOLOGY: Negative Homans. Sodium 150, BUN is 23, creatinine 0.57, hemoglobin is 10.2. IMPRESSION: Acute kidney injury secondary to vasomotor nephropathy, secondary to DKA, resolved; hyponatremia; uncontrolled diabetes mellitus, A1c is 13; hyperkalemia; metabolic acidosis. Continue his sodium, D5W, avoid nephrotoxins. Replace electrolytes. Prognosis guarded. Lasix and Accu-Chek protocol. Rehydrating, checking urine culture, continue current treatment. MMODL / IJN: [id number] /
[2024-07-06 14:25] LABS: Glucose 1344 mg/dL (74-99)
== END 2024-07-03 17:00 | disposition home or self-care (01) | DRG 637 ==
LOC: EC 06:23 → 2SICU 07:50
PROVIDERS: ADMIT Family Medicine; ATTEND Family Medicine
DX: E10.10 Type 1 diabetes mellitus with ketoacidosis without coma (principal); G93.41 Metabolic encephalopathy; N17.0 Acute kidney failure with tubular necrosis; E87.0 Hyperosmolality and hypernatremia; E87.1 Hypo-osmolality and hyponatremia; D72.829 Elevated white blood cell count, unspecified; E10.22 Type 1 diabetes mellitus with diabetic chronic kidney disease; E10.649 Type 1 diabetes mellitus with hypoglycemia without coma; E78.5 Hyperlipidemia, unspecified; E86.0 Dehydration; I25.10 Atherosclerotic heart disease of native coronary artery without angina pectoris; E87.5 Hyperkalemia; E83.51 Hypocalcemia; I12.9 Hypertensive chronic kidney disease with stage 1 through stage 4 chronic kidney disease, or unspecified chronic kidney disease; F41.9 Anxiety disorder, unspecified; M19.90 Unspecified osteoarthritis, unspecified site; J44.9 Chronic obstructive pulmonary disease, unspecified; N18.9 Chronic kidney disease, unspecified; Z79.02 Long term (current) use of antithrombotics/antiplatelets; Z79.4 Long term (current) use of insulin; Z79.51 Long term (current) use of inhaled steroids; Z79.82 Long term (current) use of aspirin; Z79.899 Other long term (current) drug therapy; Z85.118 Personal history of other malignant neoplasm of bronchus and lung; Z87.891 Personal history of nicotine dependence; Z95.5 Presence of coronary angioplasty implant and graft; Z71.3 Dietary counseling and surveillance
CPT/HCPCS: 36415; 71045; 80051; 80053; 81001; 82009; 82565; 82803; 82947; 83036; 83605; 83690; 83735; 84100; 84145; 84295; 84484; 84520; 85025; 87086; 93005; 94640; 96361; 96365; 96375; 99291

== ENCOUNTER 2024-08-02 12:07 | Inpatient (IN) | payer MEDICARE ==
[2024-08-02] MEDS: SODIUM CHLORIDE 0.9% 2,000 ML IV ONE (12:49)
[2024-08-02] MEDS: SODIUM CHLORIDE 0.9% 1,000 ML IV SCH (12:53)
[2024-08-02 12:54] LABS: Basophils % (A) 0 %; Eosinophils % (A) 0 %; HCT 42.7 % (39.0-53.0); HGB 12.6 gm/dL (13.0-17.5); Hypochromasia Marked; Lymphocytes # (A) 1.5 k/uL (1.0-4.8); Lymphocytes % (A) 9 %; MCH 30.7 pg (25.0-35.0); MCHC 29.5 g/dL (31.0-37.0); Macrocytosis Slight; Mean Platelet Volume 9.4; Monocytes # (A) 1.1 k/uL (0-1.0); Monocytes % (A) 6 %; Neutrophils # (A) 14.6 k/uL (1.3-7.7); Neutrophils % (A) 83 %; Platelet Count 221 k/uL (150-450); RBC 4.11 m/uL (4.30-5.90); RDW 13.6 % (11.5-15.5); WBC 17.4 k/uL (3.8-10.6)
[2024-08-02] MEDS: INSULIN REGULAR 100 UNIT in SODIUM CHLORIDE 0.9% 100 ML IV SCH (13:11)
[2024-08-02 13:12] LABS: Glucose,Whole Blood >600 mg/dL (70-110)
[2024-08-02 13:20] LABS: ALT 35 U/L (4-49); AST 27 U/L (17-59); African American GFR (CKD) 54 (>60 ml/min/1.73 sqM); Albumin 4.6 g/dL (3.5-5.0); Alkaline Phosphatase 147 U/L (38-126); Blood Urea Nitrogen 59 mg/dL (9-20); Calcium 8.7 mg/dL (8.4-10.2); Chloride 97 mmol/L (98-107); MCV 103.8 fL (80.0-100.0); Magnesium 2.7 mg/dL (1.6-2.3); Non-African American GFR(CKD) 47 (>60 ml/min/1.73 sqM); Potassium 5.3 mmol/L (3.5-5.1); Sodium 136 mmol/L (137-145); Total Bilirubin 0.5 mg/dL (0.2-1.3); Total Protein 6.7 g/dL (6.3-8.2)
[2024-08-02 13:45] LABS: Carbon Dioxide <5 mmol/L (22-30); Glucose 959 mg/dL (74-99)
--- NOTE | 2024-08-02 13:49 | ED ---
Altered Mental Status HPI - General Chief Complaint: Altered Mental Status Stated Complaint: AMS Time Seen by Provider: 08/02/24 12:10 Source: EMS Mode of arrival: EMS Limitations: altered mental status - History of Present Illness Initial Comments: 64-year-old male with past medical history of diabetes on insulin, hyperlipidemia, hypertension who presents emergency department for altered mental status. He has a home care nurse who came to his house to do a well check. Found that the patient was altered. Checked his sugar and found it to be high. Patient is alert and oriented x 2. He is able to answer questions appropriately. States that he has not been taking his insulin as it is instructed because he has been so worried about his mom. States that his mom is currently hospitalized. Patient has strong smell of acetone. He has been in DKA previously. Denies chest pain or shortness of breath. No abdominal pain. No other alleviating, precipitating or modifying factors - Related Data Home Medications Medication Instructions Recorded Confirmed Clopidogrel [Plavix] 75 mg PO DAILY 12/14/23 08/02/24 Fluticasone/Umeclidin/Vilanter 1 puff INHALATION RT-DAILY 01/14/24 08/02/24 [Trelegy Ellipta 200-62.5-25] Metoprolol Succinate (ER) [Toprol 25 mg PO DAILY 07/02/24 08/02/24 XL] Insulin Aspart [NovoLOG Flexpen] See Protocol SQ ACHS 08/02/24 08/02/24 Insulin Glargine,Hum.rec.anlog 20 units SQ HS 08/02/24 08/02/24 [Lantus Solostar Pen] Previous Rx's Medication Instructions Recorded Pantoprazole [Protonix] 40 mg PO AC-BID 90 Days #160 tab 04/08/24 Ipratropium-Albuterol Nebulize 3 ml INHALATION RT-QID 30 Days 07/03/24 [Duoneb 0.5 mg-3 mg/3 ml Soln] #120 each Allergies Allergy/AdvReac Type Severity Reaction Status Date / Time No Known Allergies Allergy Verified 08/02/24 14:21 Review of Systems ROS Statement: Those systems with pertinent positive or pertinent negative responses have been documented in the HPI. ROS Other: All systems not noted in ROS Statement are negative. Past Medical History Past Medical History: COPD, Diabetes Mellitus, Hyperlipidemia, Hypertension, Osteoarthritis (OA), Vascular Disorder Additional Past Medical History / Comment(s): TENDONITIS RT ELBOW, "Cyst behind rt eye", right leg & foot pain- tx. " bad Teeth". PORRAS History of Any Multi-Drug Resistant Organisms: None Reported Past Surgical History: Orthopedic Surgery Additional Past Surgical History / Comment(s): testicular surgery, reconstructive surgery on left ring finger, rt shoulder rotator cuff, recent aortogram Past Anesthesia/Blood Transfusion Reactions: No Reported Reaction Date of Last Stent Placement:: 2022 Past Psychological History: Anxiety Smoking Status: Former smoker Past Alcohol Use History: Occasional Past Drug Use History: Marijuana - Past Family History Mother Family Medical History: Cancer Additional Family Medical History / Comment(s): LUNG CANCAR General Exam Limitations: altered mental status General appearance: alert, in no apparent distress Head exam: Present: atraumatic, normocephalic, normal inspection Eye exam: Present: normal appearance, PERRL, EOMI. Absent: scleral icterus, conjunctival injection, periorbital swelling ENT exam: Present: normal exam, mucous membranes moist Neck exam: Present: normal inspection. Absent: tenderness, meningismus, lymphadenopathy Respiratory exam: Present: normal lung sounds bilaterally. Absent: respiratory distress, wheezes, rales, rhonchi, stridor Cardiovascular Exam: Present: regular rate, normal rhythm, normal heart sounds. Absent: systolic murmur, diastolic murmur, rubs, gallop, clicks GI/Abdominal exam: Present: soft, normal bowel sounds. Absent: distended, tenderness, guarding, rebound, rigid Extremities exam: Present: normal inspection, full ROM, normal capillary refill. Absent: tenderness, pedal edema, joint swelling, calf tenderness Back exam: Present: normal inspection Neurological exam: Present: alert, oriented X3, CN II-XII intact Psychiatric exam: Present: normal affect, normal mood Skin exam: Present: warm, dry, intact, normal color. Absent: rash Course Vital Signs 08/02/24 08/02/24 08/02/24 12:08 12:54 13:54 Temperature 97.4 F L Pulse Rate 120 H 120 H 123 H Respiratory 28 H 18 19 Rate Blood Pressure 143/66 134/64 144/77 O2 Sat by Pulse 99 98 98 Oximetry 08/02/24 08/02/24 08/02/24 15:10 16:02 17:37 Temperature Pulse Rate 117 H 116 H 115 H Respiratory 20 18 20 Rate Blood Pressure 132/58 149/103 138/75 O2 Sat by Pulse 98 96 97 Oximetry 08/02/24 08/02/24 08/02/24 18:11 19:05 19:45 Temperature Pulse Rate 114 H 114 H 111 H Respiratory 16 22 Rate Blood Pressure 141/77 135/71 O2 Sat by Pulse 96 97 Oximetry 08/02/24 08/02/24 08/02/24 19:51 20:18 21:05 Temperature Pulse Rate 112 H 112 H 114 H Respiratory 22 18 Rate Blood Pressure 120/62 125/71 O2 Sat by Pulse 96 97 Oximetry 08/02/24 08/03/24 08/03/24 22:30 02:59 06:13 Temperature Pulse Rate 110 H 102 H 98 Respiratory 18 20 18 Rate Blood Pressure 115/58 118/68 109/56 O2 Sat by Pulse 96 96 Oximetry 08/03/24 08/03/24 08/03/24 07:00 07:29 08:25 Temperature Pulse Rate 90 91 88 Respiratory 20 16 Rate Blood Pressure 115/52 115/52 O2 Sat by Pulse 96 95 Oximetry 08/03/24 08/03/24 08/03/24 08:33 08:57 11:00 Temperature Pulse Rate 86 100 89 Respiratory 20 20 Rate Blood Pressure 105/57 138/86 O2 Sat by Pulse 96 98 Oximetry 08/03/24 11:54 Temperature Pulse Rate 86 Respiratory Rate Blood Pressure O2 Sat by Pulse Oximetry Medical Decision Making - Medical Decision Making Was pt. sent in by a medical professional or institution (, PA, BAG BUILDER, urgent care, hospital, or prison...) When possible be specific @ -Patient sent in from his home care nurse Did you speak to anyone other than the patient for history (EMS, parent, family, police, friend...)? What history was obtained from this source @ -Spoke with EMS for history Did you review nursing and triage notes (agree or disagree)? Why? @ -I reviewed and agree with nursing and triage notes Were old charts reviewed (outside hosp., previous admission, EMS record, old EKG, old radiological studies, urgent care reports/EKG's, prison records)? Report findings @ -I reviewed previous hospitalization records where patient was admitted for DKA Differential Diagnosis (chest pain, altered mental status, abdominal pain women, abdominal pain men, vaginal bleeding, weakness, fever, dyspnea, syncope, heada agnes, dizziness, GI bleed, back pain, seizure, CVA, palpatations, mental health, musculoskeletal)? @ -Differential Altered Mental Status: Hypoglycemia, DKA, hypercapnia, ETOH, overdose, CO poisoning, trauma, myxedema coma, HTN encephalopathy, infection, encephalitis, psychosis, intercranial hemorrhage, hepatic encephalopathy, meningitis, CVA, this is not meant to be an all-inclusive list EKG interpreted by me (3pts min.). @ -Yes and demonstrates sinus tachycardia with a rate of 119. MD interval 159. QRS 102. QTc 388. Peak [id number]. No acute ST segment elevations X-rays interpreted by me (1pt min.). @ -None done CT interpreted by me (1pt min.). @ -None done U/S interpreted by me (1pt. min.). @ -None done What testing was considered but not performed or refused? (CT, X-rays, U/S, la bs)? Why? @ -None What meds were considered but not given or refused? Why? @ -None Did you discuss the management of the patient with other professionals (professionals i.e. , PA, BAG BUILDER, lab, RT, psych nurse, social services assistant, behavioral consultant, teacher, second officer, case loader operator)? Give summary @ -Spoke with Dr. erid who will admit patien Was smoking cessation discussed for >3mins.? @ -No Was critical care preformed (if so, how long)? @ -Yes, 35 minutes for management of DKA Were there social determinants of health that impacted care today? How? (Homelessness, low income, unemployed, alcoholism, drug addiction, transportation, low edu. Level, literacy, decrease access to med. care, snf, rehab)? @ -No Was there de-escalation of care discussed even if they declined (Discuss DNR or withdrawal of care, Hospice)? DNR status @ -No What co-morbidities impacted this encounter? (DM, HTN, Smoking, COPD, CAD, Cancer, CVA, ARF, Chemo, Hep., AIDS, mental health diagnosis, sleep apnea, morbid obesity)? @ -Diabetes mellitus Was patient admitted / discharged? Hospital course, mention meds given and route, prescriptions, significant lab abnormalities, going to OR and other pertinent info. @ -Upon arrival patient seen and evaluated in trauma 4. Thorough history and physical exam was performed. Accu-Chek is obtained and is high. Patient admits to not taking his insulin. IV is established. Laboratory studies are conducted. Patient initiated on insulin drip after he is given 2 L normal s ulises. Patient will be admitted to Dr. Reid who I did speak with and accepted the patient Undiagnosed new problem with uncertain prognosis? @ -No Drug Therapy requiring intensive monitoring for toxicity (Heparin, Nitro, Insulin, Cardizem)? @ -Insulin Were any procedures done? @ -No Diagnosis/symptom? @ -Acute encephalopathy, acute DKA Acute, or Chronic, or Acute on Chronic? @ -Acute Uncomplicated (without systemic symptoms) or Complicated (systemic symptoms)? @ -Complicated Side effects of treatment? @ -No Exacerbation, Progression, or Severe Exacerbation? @ -No Poses a threat to life or bodily function? How? (Chest pain, [place], [place], pneumonia, PE, COPD, DKA, ARF, appy, cholecystitis, CVA, Diverticulitis, Homicidal, Suicidal, threat to staff... and all critical care pts) @ -Yes as patient is in DKA - Lab Data Result diagrams: 08/03/24 07:26 08/03/24 07:26 Lab Results 08/02/24 08/02/24 08/02/24 Range/Units 12:47 12:47 12:47 WBC 17.4 H (3.8-10.6) k/uL RBC 4.11 L (4.30-5.90) m/uL Hgb 12.6 L (13.0-17.5) gm/dL Hct 42.7 (39.0-53.0) % MCV 103.8 H D (80.0-100.0) fL MCH 30.7 (25.0-35.0) pg MCHC 29.5 L (31.0-37.0) g/dL RDW 13.6 (11.5-15.5) % Plt Count 221 (150-450) k/uL MPV 9.4 Neutrophils % 83 % Lymphocytes % 9 % Monocytes % 6 % Eosinophils % 0 % Basophils % 0 % Neutrophils # 14.6 H (1.3-7.7) k/uL Lymphocytes # 1.5 (1.0-4.8) k/uL Monocytes # 1.1 H (0-1.0) k/uL Eosinophils # 0.0 (0-0.7) k/uL Basophils # 0.0 (0-0.2) k/uL Hypochromasia Marked Macrocytosis Slight Sample Site ABG pH (7.35-7.45) ABG pCO2 (35-45) mmHg ABG pO2 (83-108) mmHg ABG HCO3 (21-25) mmol/L ABG Total CO2 (19-24) mmol/L ABG O2 Saturation (94-97) % ABG Base Excess mmol/L Az Test Hemoglobin (13.0-17.5) gm/dL FiO2 % Sodium 136 L (137-145) mmol/L Potassium 5.3 H (3.5-5.1) mmol/L Chloride 97 L (98-107) mmol/L Carbon Dioxide <5 L* (22-30) mmol/L Anion Gap mmol/L BUN 59 H (9-20) mg/dL Creatinine 1.55 H (0.66-1.25) mg/dL Est GFR (CKD-EPI)AfAm 54 (>60 ml/min/1.73 sqM) Est GFR (CKD-EPI)NonAf 47 (>60 ml/min/1.73 sqM) Glucose 959 H* (74-99) mg/dL POC Glucose (mg/dL) (70-110) mg/dL POC Glu Skinner Pelts ID Lactic Ac Sepsis Rflx Plasma Lactic Acid Dexter (0.7-2.0) mmol/L Calcium 8.7 (8.4-10.2) mg/dL Magnesium 2.7 H (1.6-2.3) mg/dL Total Bilirubin 0.5 (0.2-1.3) mg/dL AST 27 (17-59) U/L ALT 35 (4-49) U/L Alkaline Phosphatase 147 H (38-126) U/L Total Protein 6.7 (6.3-8.2) g/dL Albumin 4.6 (3.5-5.0) g/dL Urine Color Light Yellow Urine Appearance Clear (Clear) Urine pH 5.5 (5.0-8.0) Ur Specific Bushnell 1.022 (1.001-1.035) Urine Protein Trace H (Negative) Urine Glucose (UA) 3+ H (Negative) Urine Ketones 1+ H (Negative) Urine Blood Negative (Negative) Urine Nitrite Negative (Negative) Urine Bilirubin Negative (Negative) Urine Urobilinogen <2.0 (<2.0) mg/dL Ur Leukocyte Esterase Negative (Negative) 08/02/24 08/02/24 08/02/24 Range/Units 12:47 13:08 13:47 WBC (3.8-10.6) k/uL RBC (4.30-5.90) m/uL Hgb (13.0-17.5) gm/dL Hct (39.0-53.0) % MCV (80.0-100.0) fL MCH (25.0-35.0) pg MCHC (31.0-37.0) g/dL RDW (11.5-15.5) % Plt Count (150-450) k/uL MPV Neutrophils % % Lymphocytes % % Monocytes % % Eosinophils % % Basophils % % Neutrophils # (1.3-7.7) k/uL Lymphocytes # (1.0-4.8) k/uL Monocytes # (0-1.0) k/uL Eosinophils # (0-0.7) k/uL Basophils # (0-0.2) k/uL Hypochromasia Macrocytosis Sample Site ABG pH (7.35-7.45) ABG pCO2 (35-45) mmHg ABG pO2 (83-108) mmHg ABG HCO3 (21-25) mmol/L ABG Total CO2 (19-24) mmol/L ABG O2 Saturation (94-97) % ABG Base Excess mmol/L Az Test Hemoglobin (13.0-17.5) gm/dL FiO2 % Sodium (137-145) mmol/L Potassium (3.5-5.1) mmol/L Chloride (98-107) mmol/L Carbon Dioxide (22-30) mmol/L Anion Gap mmol/L BUN (9-20) mg/dL Creatinine (0.66-1.25) mg/dL Est GFR (CKD-EPI)AfAm (>60 ml/min/1.73 sqM) Est GFR (CKD-EPI)NonAf (>60 ml/min/1.73 sqM) Glucose (74-99) mg/dL POC Glucose (mg/dL) >600 H* (70-110) mg/dL POC Glu Skinner Pelts ID Carol Ontiveros Lactic Ac Sepsis Rflx Y Plasma Lactic Acid Dexter 2.8 H* (0.7-2.0) mmol/L Calcium (8.4-10.2) mg/dL Magnesium (1.6-2.3) mg/dL Total Bilirubin (0.2-1.3) mg/dL AST (17-59) U/L ALT (4-49) U/L Alkaline Phosphatase (38-126) U/L Total Protein (6.3-8.2) g/dL Albumin (3.5-5.0) g/dL Urine Color Urine Appearance (Clear) Urine pH (5.0-8.0) Ur Specific Bushnell (1.001-1.035) Urine Protein (Negative) Urine Glucose (UA) (Negative) Urine Ketones (Negative) Urine Blood (Negative) Urine Nitrite (Negative) Urine Bilirubin (Negative) Urine Urobilinogen (<2.0) mg/dL Ur Leukocyte Esterase (Negative) 08/02/24 08/02/24 Range/Units 13:51 13:58 WBC (3.8-10.6) k/uL RBC (4.30-5.90) m/uL Hgb (13.0-17.5) gm/dL Hct (39.0-53.0) % MCV (80.0-100.0) fL MCH (25.0-35.0) pg MCHC (31.0-37.0) g/dL RDW (11.5-15.5) % Plt Count (150-450) k/uL MPV Neutrophils % % Lymphocytes % % Monocytes % % Eosinophils % % Basophils % % Neutrophils # (1.3-7.7) k/uL Lymphocytes # (1.0-4.8) k/uL Monocytes # (0-1.0) k/uL Eosinophils # (0-0.7) k/uL Basophils # (0-0.2) k/uL Hypochromasia Macrocytosis Sample Site Right Radial ABG pH 7.20 L (7.35-7.45) ABG pCO2 26 L (35-45) mmHg ABG pO2 111 H (83-108) mmHg ABG HCO3 10 L* (21-25) mmol/L ABG Total CO2 11 L (19-24) mmol/L ABG O2 Saturation 98.2 H (94-97) % ABG Base Excess -16.5 mmol/L Az Test Yes Hemoglobin 11.1 L (13.0-17.5) gm/dL FiO2 21 % Sodium (137-145) mmol/L Potassium (3.5-5.1) mmol/L Chloride (98-107) mmol/L Carbon Dioxide (22-30) mmol/L Anion Gap mmol/L BUN (9-20) mg/dL Creatinine (0.66-1.25) mg/dL Est GFR (CKD-EPI)AfAm (>60 ml/min/1.73 sqM) Est GFR (CKD-EPI)NonAf (>60 ml/min/1.73 sqM) Glucose (74-99) mg/dL POC Glucose (mg/dL) >600 H* (70-110) mg/dL POC Glu Skinner Pelts ID Ponce Mattson Lactic Ac Sepsis Rflx Plasma Lactic Acid Dexter (0.7-2.0) mmol/L Calcium (8.4-10.2) mg/dL Magnesium (1.6-2.3) mg/dL Total Bilirubin (0.2-1.3) mg/dL AST (17-59) U/L ALT (4-49) U/L Alkaline Phosphatase (38-126) U/L Total Protein (6.3-8.2) g/dL Albumin (3.5-5.0) g/dL Urine Color Urine Appearance (Clear) Urine pH (5.0-8.0) Ur Specific [place] (1.001-1.035) Urine Protein (Negative) Urine Glucose (UA) (Negative) Urine Ketones (Negative) Urine Blood (Negative) Urine Nitrite (Negative) Urine Bilirubin (Negative) Urine Urobilinogen (<2.0) mg/dL Ur Leukocyte Esterase (Negative) Disposition Clinical Impression: Diabetic ketoacidosis, Acute encephalopathy, Leukocytosis, Acute kidney injury, Dehydration, Acidosis, metabolic Disposition: ADMITTED IP TO THIS [facility] Condition: Serious Is patient prescribed a controlled substance at d/c from ED?: No Time of Disposition: 13:53 Decision to Admit Reason: Admit from EC Decision Date: 08/02/24 Decision Time: 13:53
[2024-08-02 13:55] LABS: ABG Base Excess -16.5 mmol/L; ABG Oxygen Saturation 98.2 % (94-97); ABG PCO2 26 mmHg (35-45); ABG PO2 111 mmHg (83-108); ABG TCO2 11 mmol/L (19-24); Allen Test Performed? Yes
[2024-08-02 13:59] LABS: ABG HCO3 10 mmol/L (21-25)
[2024-08-02 14:00] LABS: Glucose,Whole Blood >600 mg/dL (70-110)
[2024-08-02 15:07] LABS: Glucose,Whole Blood 528 mg/dL (70-110)
--- NOTE | 2024-08-02 15:11 | P.CNPUL ---
History of Present Illness Consult date: 08/02/24 Requesting physician: Servando Whalen Reason for consult: other (Critical care management) Chief complaint: Altered mental status History of present illness: This is a 64-year-old male patient with a known history of diabetes mellitus, hypertension, hyperlipidemia, osteoarthritis, chronic obstructive pulmonary disease, former smoker who was found by his visiting nurse today to be altered upon her visit. She found his blood glucose level to be quite high and had him brought into the emergency room. White count 17.4. Hemoglobin 12.6. Platelets 221. Sodium 136. Potassium 5.3. Bicarb less than 5. Anion gap unable to be measured. BUN 59. Creatinine 1.55. Glucose 959. Lactic acid 2.8. He is seen in consultation in the emergency department. He is awake, restless, disoriented. His main complaint is of being thirsty. He is currently afebrile. Maintaining O2 saturations in the 90s on room air. He is tachycardic. Arterial blood gases on room air revealed a PaO2 of 111, pCO2 26 and a pH of 7.20. Bicarb 10. He is currently on an insulin drip at 4.66 units/h. Normal saline at 200 mL/h. Review of Systems ROS unobtainable: due to mental status Past Medical History Past Medical History: COPD, Diabetes Mellitus, Hyperlipidemia, Hypertension, Osteoarthritis (OA), Vascular Disorder Additional Past Medical History / Comment(s): TENDONITIS RT ELBOW, "Cyst behind rt eye", right leg & foot pain- tx. " bad Teeth". PORRAS History of Any Multi-Drug Resistant Organisms: None Reported Past Surgical History: Orthopedic Surgery Additional Past Surgical History / Comment(s): testicular surgery, imani nstructive surgery on left ring finger, rt shoulder rotator cuff, recent aortogram Past Anesthesia/Blood Transfusion Reactions: No Reported Reaction Date of Last Stent Placement:: 2022 Past Psychological History: Anxiety Smoking Status: Former smoker Past Alcohol Use History: Occasional Past Drug Use History: Marijuana - Past Family History Mother Family Medical History: Cancer Additional Family Medical History / Comment(s): LUNG CANCAR Medications and Allergies Home Medications Medication Instructions Recorded Confirmed Type Clopidogrel [Plavix] 75 mg PO DAILY 12/14/23 08/02/24 History Fluticasone/Umeclidin/Vilanter 1 puff INHALATION RT-DAILY 01/14/24 08/02/24 History [Trelegy Ellipta 200-62.5-25] Pantoprazole [Protonix] 40 mg PO AC-BID 90 Days #160 tab 04/08/24 08/02/24 Rx Metoprolol Succinate (ER) [Toprol 25 mg PO DAILY 07/02/24 08/02/24 History XL] Ipratropium-Albuterol Nebulize 3 ml INHALATION RT-QID 30 Days 07/03/24 08/02/24 Rx [Duoneb 0.5 mg-3 mg/3 ml Soln] #120 each Insulin Aspart [NovoLOG Flexpen] See Protocol SQ ACHS 08/02/24 08/02/24 History Insulin Glargine,Hum.rec.anlog 20 units SQ HS 08/02/24 08/02/24 History [Lantus Solostar Pen] Allergies Allergy/AdvReac Type Severity Reaction Status Date / Time No Known Allergies Allergy Verified 08/02/24 14:21 Physical Exam Vitals: Vital Signs Temp Pulse Resp BP Pulse Ox 08/02/24 13:54 123 H 19 144/77 98 08/02/24 12:54 120 H 18 134/64 98 08/02/24 12:08 97.4 F L 120 H 28 H 143/66 99 Intake and Output 08/01/24 08/02/24 08/02/24 22:59 06:59 14:59 Other: Weight 46.221 kg GENERAL EXAM: Awake, confused, 64-year-old very thin male, on room air. HEAD: Normocephalic. EYES: Normal reaction of pupils, equal size. NOSE: Clear with pink turbinates. THROAT: No erythema or exudates. NECK: No masses, no JVD. CHEST: No chest wall deformity. LUNGS: Equal air entry with no crackles, wheeze, rhonchi or dullness. CVS: S1 and S2 normal with no audible murmur, regular rhythm. ABDOMEN: No hepatosplenomegaly, normal bowel sounds, no guarding or rigidity. SPINE: No scoliosis or deformity SKIN: No rashes CENTRAL NERVOUS SYSTEM: No focal deficits, tone is normal in all 4 extremities. EXTREMITIES: There is no peripheral edema. No clubbing, no cyanosis. Peripheral pulses are intact. Results - Laboratory Findings CBC and BMP: 08/02/24 12:47 08/02/24 12:47 ABG ABG pH 7.20 (7.35-7.45) L 08/02/24 13:51 ABG pCO2 26 mmHg (35-45) L 08/02/24 13:51 ABG pO2 111 mmHg (83-108) H 08/02/24 13:51 ABG O2 Saturation 98.2 % (94-97) H 08/02/24 13:51 Abnormal lab findings: Abnormal Labs 08/02/24 08/02/24 08/02/24 12:47 12:47 12:47 WBC 17.4 H RBC 4.11 L Hgb 12.6 L MCV 103.8 H D MCHC 29.5 L Neutrophils # 14.6 H Monocytes # 1.1 H ABG pH ABG pCO2 ABG pO2 ABG HCO3 ABG Total CO2 ABG O2 Saturation Hemoglobin Sodium 136 L Potassium 5.3 H Chloride 97 L Carbon Dioxide <5 L* BUN 59 H Creatinine 1.55 H Glucose 959 H* POC Glucose (mg/dL) Plasma Lactic Acid Dexter 2.8 H* Magnesium 2.7 H Alkaline Phosphatase 147 H 08/02/24 08/02/24 08/02/24 13:08 13:51 13:58 WBC RBC Hgb MCV MCHC Neutrophils # Monocytes # ABG pH 7.20 L ABG pCO2 26 L ABG pO2 111 H ABG HCO3 10 L* ABG Total CO2 11 L ABG O2 Saturation 98.2 H Hemoglobin 11.1 L Sodium Potassium Chloride Carbon Dioxide BUN Creatinine Glucose POC Glucose (mg/dL) >600 H* >600 H* Plasma Lactic Acid Dexter Magnesium Alkaline Phosphatase Assessment and Plan Assessment: Acute diabetic ketoacidosis, trigger unclear at this point. The patient did have an admission in June 2024 for similar episode Altered mental status secondary to above Leukocytosis secondary to above Anion gap metabolic acidosis secondary to above Acute kidney injury secondary to above Lactic acidosis secondary to above Chronic obstructive pulmonary disease Former smoker Hypertension Hyperlipidemia Osteoarthritis Plan: The patient was seen and evaluated Labs and medications reviewed Continue the DKA protocol Currently on insulin drip at 4.66 units an hour Getting normal saline at 200 mL/h Stable and on room air Awaiting ICU bed Continue to monitor labs We will continue to follow and make further recommendations based on his clinical status I have personally seen and examined the patient, performed the documentation and the assessment and plan as written. Number of minutes spent on the visit: 20 Dictation was produced using [employer] dictation software. Please excuse any grammatical, word or spelling errors.
[2024-08-02 16:00] LABS: Glucose,Whole Blood 479 mg/dL (70-110)
[2024-08-02 16:30] LABS: African American GFR (CKD) 76 (>60 ml/min/1.73 sqM); Anion Gap 21 mmol/L; Blood Urea Nitrogen 53 mg/dL (9-20); Carbon Dioxide 15 mmol/L (22-30); Chloride 108 mmol/L (98-107); Non-African American GFR(CKD) 66 (>60 ml/min/1.73 sqM); Potassium 5.2 mmol/L (3.5-5.1); Sodium 144 mmol/L (137-145)
[2024-08-02 16:37] LABS: Glucose 541 mg/dL (74-99)
[2024-08-02 17:05] LABS: Glucose,Whole Blood 405 mg/dL (70-110)
[2024-08-02 18:03] LABS: Glucose,Whole Blood 341 mg/dL (70-110)
[2024-08-02 18:58] LABS: Glucose,Whole Blood 292 mg/dL (70-110)
[2024-08-02] MEDS: D5-0.45% NACL WITH KCL 20MEQ/L 1,000 ML IV SCH (19:23)
[2024-08-02] MEDS: IPRATROPIUM-ALBUTEROL 3 ML NEB INHALATION SCH (19:43)
[2024-08-02 20:02] LABS: Glucose,Whole Blood 291 mg/dL (70-110)
[2024-08-02 20:57] LABS: African American GFR (CKD) >90 (>60 ml/min/1.73 sqM); Anion Gap 8 mmol/L; Blood Urea Nitrogen 43 mg/dL (9-20); Carbon Dioxide 22 mmol/L (22-30); Chloride 115 mmol/L (98-107); Glucose 262 mg/dL (74-99); Non-African American GFR(CKD) >90 (>60 ml/min/1.73 sqM); Potassium 4.2 mmol/L (3.5-5.1); Sodium 145 mmol/L (137-145)
[2024-08-02 21:04] LABS: Glucose,Whole Blood 241 mg/dL (70-110)
[2024-08-02] MEDS ORDERED: DEXTROSE 50% SYRINGE 50 ML IVP PRN (21:20)
[2024-08-02] MEDS: DEXTROSE 5%-0.45% NACL 1,000 ML IV SCH (21:50)
[2024-08-02] MEDS: INSULIN DETEMIR (LEVEMIR) 100 UNIT/ML SYR SQ SCH (22:37)
[2024-08-03 03:15] LABS: Glucose,Whole Blood 257 mg/dL (70-110)
[2024-08-03] MEDS ORDERED: INSULIN DETEMIR (LEVEMIR) 100 UNIT/ML SYR SQ SCH (07:00)
[2024-08-03] MEDS: METOPROLOL SUCCINATE (ER) 25 MG TAB.ER.24H PO SCH (07:35)
[2024-08-03] MEDS: PANTOPRAZOLE 40 MG TABLET PO SCH (07:35)
[2024-08-03] MEDS: CLOPIDOGREL 75 MG TAB PO SCH (07:35)
[2024-08-03] MEDS: INSULIN ASPART (NovoLOG) 100 UNIT/ML VIAL SQ SCH (07:36)
[2024-08-03 08:00] LABS: Basophils % (A) 0 %; Eosinophils % (A) 0 %; HCT 33.6 % (39.0-53.0); HGB 10.7 gm/dL (13.0-17.5); Lymphocytes # (A) 1.8 k/uL (1.0-4.8); Lymphocytes % (A) 15 %; MCH 29.6 pg (25.0-35.0); MCHC 31.7 g/dL (31.0-37.0); Mean Platelet Volume 7.9; Monocytes # (A) 0.8 k/uL (0-1.0); Monocytes % (A) 6 %; Neutrophils # (A) 9.7 k/uL (1.3-7.7); Neutrophils % (A) 77 %; Platelet Count 199 k/uL (150-450); RBC 3.61 m/uL (4.30-5.90); RDW 13.5 % (11.5-15.5); WBC 12.7 k/uL (3.8-10.6)
[2024-08-03 08:08] LABS: MCV 93.1 fL (80.0-100.0)
[2024-08-03 08:27] LABS: African American GFR (CKD) >90 (>60 ml/min/1.73 sqM); Anion Gap 5 mmol/L; Blood Urea Nitrogen 25 mg/dL (9-20); Calcium 8.5 mg/dL (8.4-10.2); Carbon Dioxide 29 mmol/L (22-30); Chloride 110 mmol/L (98-107); Glucose 58 mg/dL (74-99); Non-African American GFR(CKD) >90 (>60 ml/min/1.73 sqM); Phosphorus 3.1 mg/dL (2.5-4.5); Potassium 3.6 mmol/L (3.5-5.1); Sodium 144 mmol/L (137-145)
[2024-08-03 09:53] LABS: Glucose,Whole Blood 77 mg/dL (70-110)
[2024-08-03 11:15] LABS: Glucose,Whole Blood 89 mg/dL (70-110)
[2024-08-03 12:00] LABS: Appearance,Urine Clear (Clear); Bilirubin,Urine Negative (Negative); Blood,Urine Negative (Negative); Color,Urine Light Yellow; Glucose,Urine (UA) 3+ (Negative); Ketones,Urine 1+ (Negative); Leukocyte Esterase,Urine Negative (Negative); Nitrite,Urine Negative (Negative); PH, Urine 5.5 (5.0-8.0); Protein,Urine Trace (Negative); Specific Gravity,Urine 1.022 (1.001-1.035); Urobilinogen,Urine <2.0 mg/dL (<2.0)
[2024-08-03 13:26] LABS: Glucose,Whole Blood 83 mg/dL (70-110)
--- NOTE | 2024-08-03 14:29 | P.PN ---
Subjective Progress Note Date: 08/03/24 This is a 64-year-old male patient with a known history of diabetes mellitus, hypertension, hyperlipidemia, osteoarthritis, chronic obstructive pulmonary disease, former smoker who was found by his visiting nurse today to be altered upon her visit. She found his blood glucose level to be quite high and had him brought into the emergency room. White count 17.4. Hemoglobin 12.6. Platelets 221. Sodium 136. Potassium 5.3. Bicarb less than 5. Anion gap unable to be measured. BUN 59. Creatinine 1.55. Glucose 959. Lactic acid 2.8. He is seen in consultation in the emergency department. He is awake, restless, disoriented. His main complaint is of being thirsty. He is currently afebrile. Maintaining O2 saturations in the 90s on room air. He is tachycardic. Arterial blood gases on room air revealed a PaO2 of 111, pCO2 26 and a pH of 7.20. Bicarb 10. He is currently on an insulin drip at 4.66 units/h. Normal saline at 200 mL/h. The patient is seen today August 03, 2024 in follow-up in the emergency department. He is currently resting on a stretcher. Awake and alert in no acu te distress. Doing quite a bit better today compared to yesterday. Maintaining good O2 saturations in the 90s on room air. He is afebrile. Hemodynamically stable. White count 12.7. Hemoglobin 10.7. Platelets 199. Sodium 144. Potassium 3.6. Bicarb 29. Anion gap 5. BUN 25. Creatinine 0.56. Glucose 83. He has been transition to Levemir 20 mg at bedtime. He is currently on D5 and a half normal saline at 50 mL/h. Objective - Vital Signs Vital signs: Vital Signs Temp 97.4 F L 08/02/24 12:08 Pulse 80 08/03/24 14:00 Resp 20 08/03/24 14:00 BP 134/71 08/03/24 14:00 Pulse Ox 96 08/03/24 14:00 FiO2 Intake & Output 08/02/24 08/03/24 08/03/24 18:59 06:59 18:59 Intake Total 26.997 9.804 Balance 26.997 9.804 Weight 46.221 kg Intake: Intake, IV Titration 26.997 9.804 Amount Insulin Regular 100 unit 26.997 9.804 In Sodium Chloride 0.9% 100 ml @ 0.1 UNITS/KG/HR 4.668 mls/hr IV .[id number] [facility] Rx#:[id number] - Exam GENERAL EXAM: Awake, oriented 64-year-old very thin male, on room air. HEAD: Normocephalic. EYES: Normal reaction of pupils, equal size. NOSE: Clear with pink turbinates. THROAT: No erythema or exudates. NECK: No masses, no JVD. CHEST: No chest wall deformity. LUNGS: Equal air entry with no crackles, wheeze, rhonchi or dullness. CVS: S1 and S2 normal with no audible murmur, regular rhythm. ABDOMEN: No hepatosplenomegaly, normal bowel sounds, no guarding or rigidity. SPINE: No scoliosis or deformity SKIN: No rashes CENTRAL NERVOUS SYSTEM: No focal deficits, tone is normal in all 4 extremities. EXTREMITIES: There is no peripheral edema. No clubbing, no cyanosis. Per ipheral pulses are intact. - Labs CBC & Chem 7: 08/03/24 07:26 08/03/24 07:26 Labs: Abnormal Lab Results - Last 24 Hours (Table) 08/02/24 08/02/24 08/02/24 Range/Units 12:47 15:05 15:48 WBC (3.8-10.6) k/uL RBC (4.30-5.90) m/uL Hgb (13.0-17.5) gm/dL Hct (39.0-53.0) % Neutrophils # (1.3-7.7) k/uL Potassium (3.5-5.1) mmol/L Chloride (98-107) mmol/L Carbon Dioxide (22-30) mmol/L BUN (9-20) mg/dL Creatinine (0.66-1.25) mg/dL Glucose (74-99) mg/dL POC Glucose (mg/dL) 528 H* (70-110) mg/dL Hemoglobin A1c (<=6.0) % Phosphorus 4.8 H (2.5-4.5) mg/dL Urine Protein Trace H (Negative) Urine Glucose (UA) 3+ H (Negative) Urine Ketones 1+ H (Negative) 08/02/24 08/02/24 08/02/24 Range/Units 15:48 15:58 17:04 WBC (3.8-10.6) k/uL RBC (4.30-5.90) m/uL Hgb (13.0-17.5) gm/dL Hct (39.0-53.0) % Neutrophils # (1.3-7.7) k/uL Potassium 5.2 H (3.5-5.1) mmol/L Chloride 108 H (98-107) mmol/L Carbon Dioxide 15 L (22-30) mmol/L BUN 53 H (9-20) mg/dL Creatinine (0.66-1.25) mg/dL Glucose 541 H* (74-99) mg/dL POC Glucose (mg/dL) 479 H 405 H (70-110) mg/dL Hemoglobin A1c (<=6.0) % Phosphorus (2.5-4.5) mg/dL Urine Protein (Negative) Urine Glucose (UA) (Negative) Urine Ketones (Negative) 08/02/24 08/02/24 08/02/24 Range/Units 18:02 18:56 20:01 WBC (3.8-10.6) k/uL RBC (4.30-5.90) m/uL Hgb (13.0-17.5) gm/dL Hct (39.0-53.0) % Neutrophils # (1.3-7.7) k/uL Potassium (3.5-5.1) mmol/L Chloride 115 H (98-107) mmol/L Carbon Dioxide (22-30) mmol/L BUN 43 H (9-20) mg/dL Creatinine (0.66-1.25) mg/dL Glucose 262 H (74-99) mg/dL POC Glucose (mg/dL) 341 H 292 H (70-110) mg/dL Hemoglobin A1c (<=6.0) % Phosphorus (2.5-4.5) mg/dL Urine Protein (Negative) Urine Glucose (UA) (Negative) Urine Ketones (Negative) 08/02/24 08/02/24 08/02/24 Range/Units 20:01 20:01 21:03 WBC (3.8-10.6) k/uL RBC (4.30-5.90) m/uL Hgb (13.0-17.5) gm/dL Hct (39.0-53.0) % Neutrophils # (1.3-7.7) k/uL Potassium (3.5-5.1) mmol/L Chloride (98-107) mmol/L Carbon Dioxide (22-30) mmol/L BUN (9-20) mg/dL Creatinine (0.66-1.25) mg/dL Glucose (74-99) mg/dL POC Glucose (mg/dL) 291 H 241 H (70-110) mg/dL Hemoglobin A1c 13.5 H (<=6.0) % Phosphorus (2.5-4.5) mg/dL Urine Protein (Negative) Urine Glucose (UA) (Negative) Urine Ketones (Negative) 08/03/24 08/03/24 08/03/24 Range/Units 03:14 07:26 07:26 WBC 12.7 H (3.8-10.6) k/uL RBC 3.61 L (4.30-5.90) m/uL Hgb 10.7 L (13.0-17.5) gm/dL Hct 33.6 L (39.0-53.0) % Neutrophils # 9.7 H (1.3-7.7) k/uL Potassium (3.5-5.1) mmol/L Chloride 110 H (98-107) mmol/L Carbon Dioxide (22-30) mmol/L BUN 25 H (9-20) mg/dL Creatinine 0.56 L (0.66-1.25) mg/dL Glucose 58 L (74-99) mg/dL POC Glucose (mg/dL) 257 H (70-110) mg/dL Hemoglobin A1c (<=6.0) % Phosphorus (2.5-4.5) mg/dL Urine Protein (Negative) Urine Glucose (UA) (Negative) Urine Ketones (Negative) Assessment and Plan Assessment: Acute diabetic ketoacidosis, trigger unclear at this point. The patient did have an admission in June 2024 for similar episode Altered mental status secondary to above, recovered Leukocytosis secondary to above, improved Anion gap metabolic acidosis secondary to above, recovered Acute kidney injury secondary to above, improved Lactic acidosis secondary to above, improved Chronic obstructive pulmonary disease, currently in active and stable Former smoker Hypertension Hyperlipidemia Osteoarthritis Plan: The patient was seen and evaluated Labs and medications reviewed Transitioned to home Levemir dose Stable and on room air Cleared for discharge from the pulmonary/critical care standpoint I have personally seen and examined the patient, performed the documentation and the assessment and plan as written. Number of minutes spent on the visit: 10 Dictation was produced using [employer] dictation software. Please excuse any grammatical, word or spelling errors.
[2024-08-03 15:33] LABS: Glucose,Whole Blood 157 mg/dL (70-110)
[2024-08-03 16:52] LABS: Glucose,Whole Blood 215 mg/dL (70-110)
[2024-08-03 17:58] LABS: Glucose,Whole Blood 193 mg/dL (70-110)
[2024-08-03 18:47] VITALS: RESP 16
[2024-08-03 20:21] LABS: Glucose,Whole Blood 225 mg/dL (70-110)
--- NOTE | 2024-08-03 23:16 | HP ---
HISTORY AND PHYSICAL HISTORY OF PRESENT ILLNESS: A 64-year-old white male came to the ER with diabetic ketoacidosis, increased obtundation due to DKA and dehydration. The patient has a history of COPD and malnutrition, chronic smoker for many many years. HOME MEDICATIONS: 1. Protonix 40 b.i.d. 2. Toprol-XL 25 daily. 3. Levemir 20 daily. 4. DuoNeb q.i.d. 5. Plavix 75 daily. See orders. PHYSICAL EXAMINATION: CARDIOVASCULAR: S1, S2. LUNGS: Transmitted upper sounds. GI: Soft. HEMATOLOGY: Negative Homans. PSYCH: Fair mood and affect. VITAL SIGNS: O2 of 96% to 98%, blood pressure 110s to 130s over 60s to 70s, respiratory rate 18 to 20, pulse 60 to 80. CARDIOVASCULAR: S1, S2. LUNGS: Transmitted upper sounds. GI: Soft, nontender. HEMATOLOGY: Negative Homans. PSYCH: Fair mood and affect. GENERAL: He looks weak, cachectic. INTEGUMENT: Dry skin turgor. Dry mucous membranes. ASSESSMENT: Diabetic ketoacidosis, altered mental status secondary to encephalopathy, secondary to diabetic ketoacidosis and dehydration. He was titrating back over his subcu insulin as he is not a DKA. Followup tomorrow. Prognosis guarded. MMODL / IJN: [id number] /
--- NOTE | 2024-08-04 01:54 | PN ---
PROGRESS NOTE SUBJECTIVE: A 64-year-old white male came in with DKA, is now transferred back to his regular insulin medications, COPD medicines, hypertension medicines. The patient wants to go home. OBJECTIVE: VITAL SIGNS: Stable, afebrile. CARDIOVASCULAR: S1, S2. LUNGS: Transmitted upper sounds. GI: Soft, nontender. HEMATOLOGY: Negative Homans. ASSESSMENT: Diabetic ketoacidosis, insulin-dependent diabetes mellitus, chronic obstructive pulmonary disease, malnutrition, altered mental status secondary to severe dehydration. He will be discharged home soon. To follow up either tonight or tomorrow morning as cousin's mom is in the hospital. He is very stressed over this and he stopped taking his insulin at home. Recommendations were given to him. FANNY / TISHN: [id number] /
[2024-08-04 02:09] LABS: Glucose,Whole Blood 43 mg/dL (70-110)
[2024-08-04 02:26] LABS: Glucose,Whole Blood 49 mg/dL (70-110)
[2024-08-04] MEDS: DEXTROSE 50% SYRINGE 50 ML IVP PRN (02:29)
[2024-08-04 02:49] LABS: Glucose,Whole Blood 175 mg/dL (70-110)
[2024-08-04 06:20] LABS: Glucose,Whole Blood 130 mg/dL (70-110)
[2024-08-04 08:26] VITALS: TEMP 98
[2024-08-04 11:43] LABS: Glucose,Whole Blood 168 mg/dL (70-110)
[2024-08-04 12:08] VITALS: BP 133/69; PULSE 94
--- NOTE | 2024-08-04 13:21 | P.PN ---
Subjective Progress Note Date: 08/04/24 Principal diagnosis: Acute DKA This is a 64-year-old male patient with a known history of diabetes mellitus, hypertension, hyperlipidemia, osteoarthritis, chronic obstructive pulmonary disease, former smoker who was found by his visiting nurse today to be altered upon her visit. She found his blood glucose level to be quite high and had him brought into the emergency room. White count 17.4. Hemoglobin 12.6. Platelets 221. Sodium 136. Potassium 5.3. Bicarb less than 5. Anion gap unable to be measured. BUN 59. Creatinine 1.55. Glucose 959. Lactic acid 2.8. He is seen in consultation in the emergency department. He is awake, restless, disoriented. His main complaint is of being thirsty. He is currently afebrile. Maintaining O2 saturations in the 90s on room air. He is tachycardic. Arterial blood gases on room air revealed a PaO2 of 111, pCO2 26 and a pH of 7.20. Bicarb 10. He is currently on an insulin drip at 4.66 units/h. Normal saline at 200 mL/h. The patient is seen today August 03, 2024 in follow-up in the emergency department. He is currently resting on a stretcher. Awake and alert in no acute distress. Doing quite a bit better today compared to yesterday. Maintaining good O2 saturations in the 90s on room air. He is afebrile. Hemodynamically stable. White count 12.7. Hemoglobin 10.7. Platelets 199. Sodium 144. Potassium 3.6. Bicarb 29. Anion gap 5. BUN 25. Creatinine 0.56. Glucose 83. He has been transition to Levemir 20 mg at bedtime. He is currently on D5 and a half normal saline at 50 mL/h. Patient was evaluated today on 08/04/2024, patient is doing great, asymptomatic, resting not in any distress, patient is being considered for discharge home, his DKA has resolved. No active pulmonary symptoms no GI symptoms no genitourinary symptoms hence will clear the patient for discharge and follow-up with his primary care physician. Objective - Vital Signs Vital signs: Vital Signs Temp 98.0 F 08/04/24 08:18 Pulse 94 08/04/24 11:59 Resp 16 08/04/24 11:59 BP 133/69 08/04/24 11:59 Pulse Ox 98 08/04/24 11:59 FiO2 Intake & Output 08/03/24 08/04/24 08/04/24 18:59 06:59 18:59 Intake Total 200 Output Total 800 Balance -600 Weight 46.221 kg Intake: Oral 200 Output: Urine 800 Other: Voiding Method Urinal Toilet Urinal - Exam GENERAL EXAM: Awake, oriented 64-year-old very thin male, on room air. HEAD: Normocephalic. EYES: Normal reaction of pupils, equal size. NOSE: Clear with pink turbinates. THROAT: No erythema or exudates. NECK: No masses, no JVD. CHEST: No chest wall deformity. LUNGS: Equal air entry with no crackles, wheeze, rhonchi or dullness. CVS: S1 and S2 normal with no audible murmur, regular rhythm. ABDOMEN: No hepatosplenomegaly, normal bowel sounds, no guarding or rigidity. SPINE: No scoliosis or deformity SKIN: No rashes CENTRAL NERVOUS SYSTEM: No focal deficits, tone is normal in all 4 extremities. EXTREMITIES: There is no peripheral edema. No clubbing, no cyanosis. Peripheral pulses are intact. - Labs CBC & Chem 7: 08/03/24 07:26 08/03/24 07:26 Labs: Abnormal Lab Results - Last 24 Hours (Table) 08/03/24 08/03/24 08/03/24 Range/Units 07:26 15:31 16:51 POC Glucose (mg/dL) 157 H 215 H (70-110) mg/dL Hemoglobin A1c 13.5 H (<=6.0) % 08/03/24 08/03/24 08/04/24 Range/Units 17:57 20:19 02:08 POC Glucose (mg/dL) 193 H 225 H 43 L* (70-110) mg/dL Hemoglobin A1c (<=6.0) % 08/04/24 08/04/24 08/04/24 Range/Units 02:25 02:48 06:19 POC Glucose (mg/dL) 49 L* 175 H 130 H (70-110) mg/dL Hemoglobin A1c (<=6.0) % 08/04/24 Range/Units 11:42 POC Glucose (mg/dL) 168 H (70-110) mg/dL Hemoglobin A1c (<=6.0) % Assessment and Plan Assessment: Impression: Acute diabetic ketoacidosis Altered mental status secondary to above, recovered Leukocytosis secondary to above, improved Anion gap metabolic acidosis secondary to above, recovered Acute kidney injury secondary to above, improved Lactic acidosis secondary to above, improved Chronic obstructive pulmonary disease, currently in active and stable Former smoker Hypertension Hyperlipidemia Osteoarthritis Recommendation: Agree with discharge planning Follow-up with primary care Will see as needed Time with Patient: Less than 30
== END 2024-08-04 12:38 | disposition home or self-care (01) | DRG 637 ==
LOC: EC 12:07 → 2SICU 14:10 → 3SCARD 22:52
PROVIDERS: ADMIT Family Medicine; ATTEND Family Medicine
DX: E11.10 Type 2 diabetes mellitus with ketoacidosis without coma (principal); G93.41 Metabolic encephalopathy; N17.9 Acute kidney failure, unspecified; E46 Unspecified protein-calorie malnutrition; Z68.1 Body mass index [BMI] 19.9 or less, adult; E86.0 Dehydration; J44.9 Chronic obstructive pulmonary disease, unspecified; I10 Essential (primary) hypertension; M19.90 Unspecified osteoarthritis, unspecified site; E78.5 Hyperlipidemia, unspecified; T38.3X6A Underdosing of insulin and oral hypoglycemic [antidiabetic] drugs, initial encounter; Z87.891 Personal history of nicotine dependence; Z91.128 Patient's intentional underdosing of medication regimen for other reason; Z79.02 Long term (current) use of antithrombotics/antiplatelets; Z79.51 Long term (current) use of inhaled steroids; Z79.899 Other long term (current) drug therapy
CPT/HCPCS: 36415; 36600; 80048; 80051; 80053; 81003; 82565; 82805; 82947; 83036; 83605; 83735; 84100; 84520; 85025; 93005; 94640; 96360; 96361; 99291